=== PATIENT | female | born 1945 | race Caucasian/White ===

== ENCOUNTER 2016-12-03 19:35 | Emergency (ER) | payer MEDICARE, BC ==
[2016-12-03] MEDS ORDERED: Ketorolac 30 MG/ML SDV IVPUSH ONE (20:26)
[2016-12-03] MEDS ORDERED: Sodium Chloride 0.9% 10 ML Syringe FLUSH PRN (20:27)
[2016-12-03] MEDS ORDERED: LORazepam 2 MG/ML MDV IVPUSH ONE (20:27)
[2016-12-03] MEDS ORDERED: Sodium Chloride 0.9% 1,000 ML IV SCH (20:30)
[2016-12-03] MEDS ORDERED: Acetaminophen/HYDROcodone 325-5 MG Tab PO ONE (22:27)
[2016-12-03 22:46] VITALS: BP 131/91
--- NOTE | 2016-12-06 10:08 | ER ---
DATE SEEN: 12/03/2016 TIME SEEN: The patient was seen at 2000 hours. 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 She has pain in her right lower flank and right sacral region. PAST MEDICAL HISTORY: Significant for hypertension, obesity, diabetes insulin dependent, depression, coronary artery disease status post three-vessel CABG and three stents in 2000, urine incontinence, dyslipidemia. ALLERGIES: Oxycodone. MEDICATIONS: 1. Insulin NPH and regular. 2. Aspirin. 3. Plavix. 4. Metolazone. 5. Lasix. 6. Fluoxetine - Prozac. 7. Gabapentin. 8. Nitroglycerin. 9. Metoprolol. 10.Lisinopril. 11.Simvastatin. REVIEW OF SYSTEMS: Negative except for, HEENT: Decreased vision, almost blind. CARDIOVASCULAR: No chest pain, shortness of breath, or cough. GI: No recent constipation, blood in the stool, black or tarry stool, change in bowels, or diarrhea. : Intermittent occasional incontinence, uses Attends. MUSCULOSKELETAL: Decreased range of motion in the lower extremities. No history of hip fractures or knee surgeries, but has to use a walker because of decreased muscle strength in the lower extremities. PSYCH: Negative, although she has been treated for depression. PHYSICAL EXAMINATION: VITAL SIGNS: Blood pressure 152/51, heart rate 52, respirations 18, oxygen saturation 97, temperature is 36.3 degrees centigrade. BMI 36.6 kg/m2. GENERAL: Alert woman, in moderate distress. She has a tendency to squint her eyes and has a full face. TMs negative. Pharynx without abnormality. NECK: Supple. Nontender. No neck myalgias. No thyromegaly or bruits in neck. LUNGS: Clear to auscultation without rales, rhonchi, or wheezes. HEART: S1, S2. No irregular rate and rhythm. ABDOMEN: Soft. No guarding. No abdominal discomfort. She has increased abdominal girth. Palpation of the chest is without tenderness. Palpation of the spinous processes is without tenderness. MUSCULOSKELETAL: The right suprailiac crest region and the right quadratus lumborum muscles are tender as they insert in the superior iliac crest. No sacroiliac joint pain. No hip pain. Hips have decreased external rotation and mildly decreased internal rotation and good flexion at the hip. Extension is poor. No pain at the femurs, knees, or lower extremities. No pedal edema. Absent deep tendon reflexes upper and lower extremities. NEURO: Cranial nerves 2 through 12 intact. Sensation intact. No weakness in upper and lower extremities. DIAGNOSTIC DATA: X-ray C-spine, thoracic, and lumbar spine negative except for extensive spurring and osteophytic spurs and no suggestion of compromise of spinal canal. No fractures. ASSESSMENT: Ligamentous and low back muscle strain from fall. No fracture. The patient will continue to have low back pain. The patient received Toradol 30 mg IV plus Reglan IV and pain has decreased 50%. PLAN: Follow up with doctor in a week. I encouraged her to walk and noted to her that her walking is the ticket to walking away from being admission to the intermediate. I encouraged her to support to walk on a daily basis. /[id number] KANWAL/LUAN HANKINS
== END 2016-12-03 22:30 | disposition home or self-care (01) ==
LOC: FB.ED 19:35
DX: S39.012A Strain of muscle, fascia and tendon of lower back, initial encounter (principal); E11.9 Type 2 diabetes mellitus without complications; F32.9 Major depressive disorder, single episode, unspecified; I25.810 Atherosclerosis of coronary artery bypass graft(s) without angina pectoris; E78.5 Hyperlipidemia, unspecified; Z95.5 Presence of coronary angioplasty implant and graft; Z79.4 Long term (current) use of insulin; Z79.82 Long term (current) use of aspirin; Z88.5 Allergy status to narcotic agent; W01.0XXA Fall on same level from slipping, tripping and stumbling without subsequent striking against object, initial encounter
CPT/HCPCS: 36415; 72128; 72131; 80053; 84484; 96361; 96374; 96375; 99284; A9270; J1885; J2060; J7040; J7050

== ENCOUNTER 2017-07-13 09:56 | Inpatient (IN) | payer MEDICARE, BC ==
[2017-07-13] MEDS: Sodium Chloride 0.9% 10 ML Syringe FLUSH PRN ×2 (10:05→20:55)
--- NOTE | 2017-07-13 10:32 | EDM.PDOC ---
ED HPI GENERAL MEDICAL PROBLEM - General Stated Complaint: FELL AT HOME AFTER FAINTING Time Seen by Provider: 07/13/17 09:59 Source of Information: Reports: Patient, Family History Limitations: Reports: Physical Impairment - History of Present Illness INITIAL COMMENTS - FREE TEXT/NARRATIVE: 72 y.o.w.f with a h/o Metabolic syndrome, came with her family by PC to the ed after she fell forward as the was trying to it in the recliner. Her helped her to get up. Pt's only complain is left ant rip pain. Pt stated she passed out for about 6 seconds. No N/V/D or any other acute medical issue. BP 129/56 pulse 61 (a fib) O2 sat 93% on RA. RR 16 Temp 36.4 Onset: Today Onset Date: 07/13/17 Onset Time: 08:00 Duration: Hour(s):, Intermittent Location: Reports: Chest Quality: Reports: Ache Severity: Mild Improves with: Reports: Rest Worsens with: Reports: Movement Context: Reports: Other (yncopal episode) L rib Pain Score (Numeric/FACES): 8 - Related Data Allergies Allergy/AdvReac Type Severity Reaction Status Date / Time oxycodone Allergy Hallucinati Verified 07/13/17 17:22 ons Home Meds: Home Meds Aspirin 325 mg PO BEDTIME 08/19/15 [History] FLUoxetine HCl [Fluoxetine HCl] 40 mg PO BEDTIME 08/19/15 [History] Furosemide [Furosemide] 40 mg PO BID 08/19/15 [History] Insulin Isophane NPH, Human [NovoLIN N] 50 units SQ BID 08/19/15 [History] Insulin Regular, Human [NovoLIN R] 24 units SQ ACBREAKFAST 08/19/15 [History] Lisinopril 5 mg PO BEDTIME 08/19/15 [History] Metoprolol Succinate 50 mg PO BEDTIME 08/19/15 [History] Simvastatin [Simvastatin] 40 mg PO PCDINNER 08/19/15 [History] Gabapentin [Neurontin] 300 mg PO TID 11/15/15 [History] Insulin Regular, Human [NovoLIN R] 12 units SQ PCDINNER 11/15/15 [History] Nitroglycerin [Nitrostat] 0.4 mg SL DAILY PRN 07/10/16 [History] Clopidogrel [Plavix] 75 mg PO BEDTIME 12/03/16 [History] Metolazone 1 tab PO .WED AND SAT AM 12/03/16 [History] Calcium Citrate/Vitamin D3 [Citracal + D Maximum Caplet] 1 tab PO DAILY [History] Cholecalciferol (Vitamin D3) [Vitamin D3] 2,000 unit PO DAILY 07/13/17 [History] Magnesium 250 mg PO DAILY 07/13/17 [History] Past Medical History HEENT History: Reports: Cataract, Hard of Hearing, Impaired Vision, Other (See Below) Other HEENT History: macular degeneration Cardiovascular History: Reports: High Cholesterol, Hypertension, DE Respiratory History: Reports: Pneumonia, Recurrent Gastrointestinal History: Reports: Cholelithiasis Genitourinary History: Reports: Urinary Incontinence 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: Musculoskeletal History: Reports: Other (See Below) Other Musculoskeletal History: walks with walker gait unsteady Psychiatric History: Reports: Depression Endocrine/Metabolic History: Reports: Diabetes, Type II - Infectious Disease History Infectious Disease History: Reports: Chicken Pox, Measles, Shingles - Past Surgical History Cardiovascular Surgical History: Reports: Coronary Artery Bypass, Coronary Artery Stent GI Surgical History: Reports: Appendectomy, Cholecystectomy Musculoskeletal Surgical History: Reports: ORIF Social & Family History - Family History Endocrine/Metabolic: Reports: Diabetes, type II Oncologic: Reports: Renal - Tobacco Use Smoking Status *Q: Never Smoker Second Hand Smoke Exposure: No - Caffeine Use Caffeine Use: Reports: None - Recreational Drug Use Recreational Drug Use: No ED ROS GENERAL - Review of Systems Review Of Systems: Unable To Obtain - Physical Exam Exam: See Below Exam Limited By: Physical Impairment General Appearance: Alert, No Apparent Distress, Obese (morbid) Eye Exam: Bilateral Eye: Normal Inspection Ears: Normal External Exam Nose: Normal Inspection Throat/Mouth: Normal Lips, Normal Gums, No Airway Compromise, Other (dry oral mucosal membranes) Head Exam: Atraumatic, Normocephalic Neck: Normal Inspection, Supple, Non-Tender, Full Range of Motion Respiratory/Chest: No Respiratory Distress, Lungs Clear, Normal Breath Sounds ( poor insp effort), Chest Non-Tender Cardiovascular: Irregularly Irregular (h/o afib) GI/Abdominal: Normal Bowel Sounds, Soft, Non-Tender, No Organomegaly (Female) Exam: Deferred Rectal (Female) Exam: Deferred Neuro Exam (Abbreviated): Alert, Oriented, CN II-XII Intact, Normal Cognition, Abnormal Gait Back Exam: Normal Inspection, Full Range of Motion Extremities: Normal Inspection, Normal Range of Motion, Non-Tender, Pedal Edema (chronic) Psychiatric: Normal Affect, Depressed Mood Skin Exam: Warm, Dry, Intact, Normal Color, No Rash EKG INTERPRETATION EKG Date: 07/13/17 Time: 10:20 Rhythm: A-Fib Rate (Beats/Min): 66 [place]: Normal P-Wave: Absent QRS: Normal ST-T: Normal QT: Normal Comparison: NA - No Prior EKG Course - Vital Signs Text/Narrative:: 72 y.o.w.f with a h/o Metabolic syndrome, came with her family by PC to the ed after she fell forward as the was trying to it in the recliner. Her helped her to get up. Pt's only complain is left ant rip pain. Pt stated she passed out for about 6 seconds. No N/V/D or any other acute medical issue. BP 129/56 pulse 61 (a fib) O2 sat 93% on RA. RR 16 Temp 36.4 PE: Morbid obese with left ant/lower c/w tenderness Imaging: Possible left 7th rib fx, HS enlarged, no acute CHF labs: BNP 2330, HGB 13.5 WBC 6.8 INR 1.24 UA: pos for UTI Glc 100 BUN 36 Cr 1.0 Lactic acid 2.1 Troponin I 1.020 Impression: Syncopal episode, Metabolic syndrome, UTI, Morbid obesity, left 7th rib fx'd, elevated BNP (not in active CHF), h/o chronic a fib Tx: Cipro Reexam: Unsteady gait. Left ant rip pain 1.06 pm Consultation: Dr. Davis: Accepted admission for observation Plan: Admit to tele obs. NH placement. Last Recorded V/S: Last Vital Signs Temp 36.8 C 07/14/17 00:00 Pulse 95 07/14/17 00:00 Resp 18 07/14/17 00:00 BP 137/59 L 07/14/17 00:00 Pulse Ox 94 L 07/14/17 00:00 - Orders/Labs/Meds Orders: Active Orders 24 hr Category Date Time Status Patient Status [ADT] Routine ADT 07/13/17 13:11 Active Cardiac Monitoring [RC] 08,16,00 Care 07/13/17 13:15 Active Up With Assistance [RC] ASDIRECTED Care 07/13/17 13:11 Active VTE/DVT Education [RC] Per Unit Routine Care 07/13/17 13:11 Active Vital Signs [RC] 00,04,08,12,16,20 Care 07/13/17 13:11 Active Consistent Carbohydrate Diet [DIET] Diet 07/13/17 Breakfast Ordered Ribs 2V w Chest Lt [CR] Stat Exams 07/13/17 10:23 Taken CULTURE URINE [RM] Stat Lab 07/13/17 12:50 Received Docusate Sodium [Colace] Med 07/13/17 13:11 Active 100 mg PO BID PRN Ondansetron [Zofran] Med 07/13/17 13:11 Active 4 mg IV Q4H PRN Sodium Chloride 0.9% [Saline Flush] Med 07/13/17 10:49 Active 10 ml FLUSH ASDIRECTED PRN Peripheral IV Insertion Adult [OM.PC] Routine Oth 07/13/17 10:49 Ordered EKG 12 Lead [EK] Routine Ther 07/13/17 11:28 Ordered Medication Orders Aspirin (Ecotrin) 325 mg PO BEDTIME [facility] Last Admin: 07/13/17 20:46 Dose: 325 mg Calcium Carbonate (Calcium Carbonate/Vitamin D 1250 Mg-200 Unit) 1 tab PO DAILY WON Cholecalciferol (Vitamin D3) 2,000 units PO DAILY WON Ciprofloxacin (Ciprofloxacin Hcl) 500 mg PO BID WON Last Admin: 07/13/17 20:57 Dose: 500 mg Docusate Sodium (Colace) 100 mg PO BID PRN PRN Reason: Constipation Fluoxetine HCl (Prozac) 40 mg PO BEDTIME WON Furosemide (Lasix) 40 mg PO BIDDIURETIC [facility] Last Admin: 07/13/17 18:53 Dose: 40 mg Gabapentin (Neurontin) 300 mg PO TID [facility] Last Admin: 07/13/17 20:46 Dose: 300 mg Insulin Aspart (Novolog) 0 unit SUBCUT TIDMEALS [facility] PRN Reason: Protocol Last Admin: 07/13/17 18:52 Dose: 2 units Insulin Aspart (Novolog) 12 unit SUBCUT PCDINNER [facility] PRN Reason: Protocol Last Admin: 07/13/17 19:02 Dose: Admin: 07/13/17 18:53 Dose: 12 units Insulin Aspart (Novolog) 24 unit SUBCUT ACBREAKFAST [facility] PRN Reason: Protocol Insulin Detemir (Levemir) 50 unit SUBCUT BID [facility] Last Admin: 07/13/17 20:44 Dose: 50 units Ketorolac Tromethamine (Toradol) 15 mg IVPUSH Q8H [facility] Stop: 07/18/17 20:47 Last Admin: 07/13/17 20:55 Dose: 15 mg Lisinopril (Prinivil) 5 mg PO BEDTIME [facility] Last Admin: 07/13/17 20:46 Dose: 5 mg Magnesium Oxide (Magnesium Oxide) 400 mg PO DAILY [facility] Metolazone (Zaroxolyn) 2.5 mg PO WeSa@0900 [facility] Metoprolol Succinate (Toprol Xl) 50 mg PO BEDTIME [facility] Last Admin: 07/13/17 20:46 Dose: 50 mg Nitroglycerin (Nitrostat) 0.4 mg SL ASDIRECTED PRN PRN Reason: CHEST DISCOMFORT Ondansetron HCl (Zofran) 4 mg IV Q4H PRN PRN Reason: Nausea/Vomiting Rivaroxaban (Xarelto) 20 mg PO WITHDINNER [facility] Last Admin: 07/13/17 19:01 Dose: Simvastatin (Zocor) 40 mg PO PCDINNER [facility] Last Admin: 07/13/17 19:05 Dose: 40 mg Sodium Chloride (Saline Flush) 10 ml FLUSH ASDIRECTED PRN PRN Reason: Keep Vein Open Last Admin: 07/13/17 20:55 Dose: 10 ml Admin: 07/13/17 10:05 Dose: 10 ml Labs: Laboratory Tests 07/13/17 07/13/17 07/13/17 Range/Units 10:25 10:25 10:25 WBC 10.1 (4.5-12.0) X10-3/uL RBC 4.16 (3.23-5.20) x10(6)uL Hgb 13.5 (11.5-15.5) g/dL Hct 40.5 (30.0-51.3) % MCV 97.2 H (80-96) fL MCH 32.5 (27.7-33.6) pg MCHC 33.5 (32.2-35.4) g/dL RDW 14.8 (11.5-15.5) % Plt Count 213 (125-369) X10(3)uL MPV 7.6 (7.4-10.4) fL Add Manual Diff Yes Neutrophils % (Manual) 96 H (46-82) % Lymphocytes % (Manual) 4 L (13-37) % PT 12.6 H (8.7-11.1) INR 1.24 H (0.89-1.13) Sodium 144 (135-145) mmol/L Potassium 3.6 (3.5-5.3) mmol/L Chloride 107 (100-110) mmol/L Carbon Dioxide 27 (21-32) mmol/L BUN 26 H (7-18) mg/dL Creatinine 1.0 (0.55-1.02) mg/dL Est Cr Clr Drug Dosing TNP Estimated GFR (MDRD) 54 L (>60) BUN/Creatinine Ratio 26.0 H (9-20) Glucose 100 (80-116) mg/dL Hemoglobin A1c (4.5-6.2) % Lactic Acid (0.4-2.2) mmol/L Calcium 8.9 (8.6-10.2) mg/dL Creatine Kinase (60-160) IU/L Troponin I (<0.017-0.056) ng/mL NT-Pro-B Natriuret Pep (<=125) pg/mL Urine Color (YELLOW) Urine Appearance (CLEAR) Urine pH (5.0-6.5) Ur Specific Jackson (1.010-1.025) Urine Protein (NEGATIVE) mg/dL Urine Glucose (UA) (NEGATIVE) mg/dL Urine Ketones (NEGATIVE) mg/dL Urine Occult Blood (NEGATIVE) Urine Nitrite (NEGATIVE) Urine Bilirubin (NEGATIVE) Urine Urobilinogen (NEGATIVE) mg/dL Ur Leukocyte Esterase (NEGATIVE) Urine RBC (0) Urine WBC (0) Ur Squamous Epith Cells (NS,R,O) Urine Bacteria (NS) 07/13/17 07/13/17 07/13/17 Range/Units 10:25 10:25 10:25 WBC (4.5-12.0) X10-3/uL RBC (3.23-5.20) x10(6)uL Hgb (11.5-15.5) g/dL Hct (30.0-51.3) % MCV (80-96) fL MCH (27.7-33.6) pg MCHC (32.2-35.4) g/dL RDW (11.5-15.5) % Plt Count (125-369) X10(3)uL MPV (7.4-10.4) fL Add Manual Diff Neutrophils % (Manual) (46-82) % Lymphocytes % (Manual) (13-37) % PT (8.7-11.1) INR (0.89-1.13) Sodium (135-145) mmol/L Potassium (3.5-5.3) mmol/L Chloride (100-110) mmol/L Carbon Dioxide (21-32) mmol/L BUN (7-18) mg/dL Creatinine (0.55-1.02) mg/dL Est Cr Clr Drug Dosing Estimated GFR (MDRD) (>60) BUN/Creatinine Ratio (9-20) Glucose (80-116) mg/dL Hemoglobin A1c 8.0 H (4.5-6.2) % Lactic Acid 2.1 (0.4-2.2) mmol/L Calcium (8.6-10.2) mg/dL Creatine Kinase (60-160) IU/L Troponin I 0.025 (<0.017-0.056) ng/mL NT-Pro-B Natriuret Pep 2330 H* (<=125) pg/mL Urine Color (YELLOW) Urine Appearance (CLEAR) Urine pH (5.0-6.5) Ur Specific Jackson (1.010-1.025) Urine Protein (NEGATIVE) mg/dL Urine Glucose (UA) (NEGATIVE) mg/dL Urine Ketones (NEGATIVE) mg/dL Urine Occult Blood (NEGATIVE) Urine Nitrite (NEGATIVE) Urine Bilirubin (NEGATIVE) Urine Urobilinogen (NEGATIVE) mg/dL Ur Leukocyte Esterase (NEGATIVE) Urine RBC (0) Urine WBC (0) Ur Squamous Epith Cells (NS,R,O) Urine Bacteria (NS) 07/13/17 07/13/17 Range/Units 10:35 12:50 WBC (4.5-12.0) X10-3/uL RBC (3.23-5.20) x10(6)uL Hgb (11.5-15.5) g/dL Hct (30.0-51.3) % MCV (80-96) fL MCH (27.7-33.6) pg MCHC (32.2-35.4) g/dL RDW (11.5-15.5) % Plt Count (125-369) X10(3)uL MPV (7.4-10.4) fL Add Manual Diff Neutrophils % (Manual) (46-82) % Lymphocytes % (Manual) (13-37) % PT (8.7-11.1) INR (0.89-1.13) Sodium (135-145) mmol/L Potassium (3.5-5.3) mmol/L Chloride (100-110) mmol/L Carbon Dioxide (21-32) mmol/L BUN (7-18) mg/dL Creatinine (0.55-1.02) mg/dL Est Cr Clr Drug Dosing Estimated GFR (MDRD) (>60) BUN/Creatinine Ratio (9-20) Glucose (80-116) mg/dL Hemoglobin A1c (4.5-6.2) % Lactic Acid (0.4-2.2) mmol/L Calcium (8.6-10.2) mg/dL Creatine Kinase 29 L (60-160) IU/L Troponin I (<0.017-0.056) ng/mL NT-Pro-B Natriuret Pep (<=125) pg/mL Urine Color Yellow (YELLOW) Urine Appearance Cloudy (CLEAR) Urine pH 5.0 (5.0-6.5) Ur Specific [place] 1.015 (1.010-1.025) Urine Protein Negative (NEGATIVE) mg/dL Urine Glucose (UA) Normal (NEGATIVE) mg/dL Urine Ketones Negative (NEGATIVE) mg/dL Urine Occult Blood Moderate H (NEGATIVE) Urine Nitrite Positive H (NEGATIVE) Urine Bilirubin Negative (NEGATIVE) Urine Urobilinogen Normal (NEGATIVE) mg/dL Ur Leukocyte Esterase Large H (NEGATIVE) Urine RBC 10-20 H (0) Urine WBC >100 H (0) Ur Squamous Epith Cells Moderate H (NS,R,O) Urine Bacteria Many H (NS) Meds: Medications Generic Name Dose Route Start Last Admin Trade Name Freq PRN Reason Stop Dose Admin Aspirin 325 mg 07/13/17 21:00 07/13/17 20:46 Ecotrin PO 325 mg BEDTIME WON Administration Calcium Carbonate 1 tab 07/14/17 09:00 Calcium Carbonate/Vitamin D 1250 Mg-200 Unit PO DAILY [facility] Cholecalciferol 2,000 units 07/14/17 09:00 Vitamin D3 PO DAILY [facility] Ciprofloxacin 500 mg 07/13/17 21:00 07/13/17 20:57 Ciprofloxacin Hcl PO 500 mg BID [facility] Administration Docusate Sodium 100 mg 07/13/17 13:11 Colace PO BID PRN Constipation Fluoxetine HCl 40 mg 07/14/17 21:00 Prozac PO BEDTIME [facility] Furosemide 40 mg 07/13/17 18:30 07/13/17 18:53 Lasix PO 40 mg BIDDIURETIC [facility] Administration Gabapentin 300 mg 07/13/17 21:00 07/13/17 20:46 Neurontin PO 300 mg TID [facility] Administration Insulin Aspart 0 unit 07/13/17 18:00 07/13/17 18:52 Novolog SUBCUT 2 units TIDMEALS [facility] Administration Protocol Insulin Aspart 12 unit 07/13/17 18:15 07/13/17 19:02 Novolog SUBCUT Not Given PCDINNER [facility] Protocol Insulin Aspart 24 unit 07/14/17 07:30 Novolog SUBCUT ACBREAKFAST [facility] Protocol Insulin Detemir 50 unit 07/13/17 21:00 07/13/17 20:44 Levemir SUBCUT 50 units BID [facility] Administration Ketorolac Tromethamine 15 mg 07/13/17 21:00 07/13/17 20:55 Toradol IVPUSH 07/18/17 20:47 15 mg Q8H [facility] Administration Lisinopril 5 mg 07/13/17 21:00 07/13/17 20:46 Prinivil PO 5 mg BEDTIME [facility] Administration Magnesium Oxide 400 mg 07/14/17 09:00 Magnesium Oxide PO DAILY [facility] Metolazone 2.5 mg 07/16/17 09:00 Zaroxolyn PO WeSa@0900 [facility] Metoprolol Succinate 50 mg 07/13/17 21:00 07/13/17 20:46 Toprol Xl PO 50 mg BEDTIME [facility] Administration Nitroglycerin 0.4 mg 07/14/17 09:00 Nitrostat SL ASDIRECTED PRN CHEST DISCOMFORT Ondansetron HCl 4 mg 07/13/17 13:11 Zofran IV Q4H PRN Nausea/Vomiting Rivaroxaban 20 mg 07/13/17 18:00 07/13/17 19:01 Xarelto PO Not Given WITHDINNER [facility] Simvastatin 40 mg 07/13/17 19:00 07/13/17 19:05 Zocor PO 40 mg PCDINNER [facility] Administration Sodium Chloride 10 ml 07/13/17 10:49 07/13/17 20:55 Saline Flush FLUSH 10 ml ASDIRECTED PRN Administration Keep Vein Open Discontinued Medications Generic Name Dose Route Start Last Admin Trade Name Freq PRN Reason Stop Dose Admin Ciprofloxacin 500 mg 07/13/17 13:10 07/13/17 13:21 Ciprofloxacin Hcl PO 07/13/17 13:11 500 mg ONETIME ONE Administration Ketorolac Tromethamine 15 mg 07/13/17 10:49 07/13/17 11:05 Toradol IVPUSH 07/13/17 10:50 15 mg ONETIME ONE Administration Departure - Departure Time of Disposition: 08:00 Disposition: Admitted As Inpatient 64 Condition: Fair Clinical Impression: Syncopal episodes Qualifiers: Syncope type: unspecified Qualified Code(s): R55 - Syncope and collapse - Discharge Information - My Orders Last 24 Hours: My Active Orders 07/13/17 10:23 Ribs 2V w Chest Lt [CR] Stat 07/13/17 10:49 Sodium Chloride 0.9% [Saline Flush] 10 ml FLUSH ASDIRECTED PRN Peripheral IV Insertion Adult [OM.PC] Routine 07/13/17 11:28 EKG 12 Lead [EK] Routine 07/13/17 12:50 CULTURE URINE [RM] Stat 07/13/17 13:11 Patient Status [ADT] Routine Up With Assistance [RC] ASDIRECTED VTE/DVT Education [RC] Per Unit Routine Vital Signs [RC] 00,04,08,12,16,20 Docusate Sodium [Colace] 100 mg PO BID PRN Ondansetron [Zofran] 4 mg IV Q4H PRN 07/13/17 13:15 Cardiac Monitoring [RC] 08,16,00 07/13/17 Breakfast Consistent Carbohydrate Diet [DIET] - Assessment/Plan Last 24 Hours: My Active Orders 07/13/17 10:23 Ribs 2V w Chest Lt [CR] Stat 07/13/17 10:49 Sodium Chloride 0.9% [Saline Flush] 10 ml FLUSH ASDIRECTED PRN Peripheral IV Insertion Adult [OM.PC] Routine 07/13/17 11:28 EKG 12 Lead [EK] Routine 07/13/17 12:50 CULTURE URINE [RM] Stat 07/13/17 13:11 Patient Status [ADT] Routine Up With Assistance [RC] ASDIRECTED VTE/DVT Education [RC] Per Unit Routine Vital Signs [RC] 00,04,08,12,16,20 Docusate Sodium [Colace] 100 mg PO BID PRN Ondansetron [Zofran] 4 mg IV Q4H PRN 07/13/17 13:15 Cardiac Monitoring [RC] 08,16,00 07/13/17 Breakfast Consistent Carbohydrate Diet [DIET]
[2017-07-13] MEDS ORDERED: Ketorolac 30 MG/ML SDV IVPUSH ONE (10:49)
[2017-07-13] MEDS ORDERED: Ciprofloxacin 500 MG Tab PO ONE (13:10)
[2017-07-13] MEDS ORDERED: Ondansetron 4 MG/2 ML SDV IV PRN (13:11)
[2017-07-13] MEDS ORDERED: Docusate Sodium 100 MG Cap PO PRN (13:11)
--- NOTE | 2017-07-13 17:31 | PCM.HP ---
H&P History of Present Illness - General Date of Service: 07/13/17 Source of Information: Patient, Family, Old Records History Limitations: Reports: No Limitations - History of Present Illness Initial Comments - Free Text/Narative: 72-year-old female complaining of a fall this morning. She was brought in by family after she collapsed and passed out for about 15 seconds. She had just taken insulin and was walking back to the kitchen when it happened. Her attended to her promptly,her sugar on scene was 300. She complains of pain in the left rib cage moderate sharp worse with movement. The family reports that over the last couple weeks she's had multiple falls and are concerned about her safety. She however she has had no problems with her ADLs. She has brittle type 2 diabetes, obesity, coronary disease, And a history of congestive heart failure that have been previously stable. L rib Pain Score (Numeric/FACES): 8 - Related Data Allergies/Adverse Reactions: Allergies Allergy/AdvReac Type Severity Reaction Status Date / Time oxycodone Allergy Hallucinati Verified 07/13/17 17:22 ons Home Medications: Home Meds Aspirin 325 mg PO BEDTIME 08/19/15 [History] FLUoxetine HCl [Fluoxetine HCl] 40 mg PO BEDTIME 08/19/15 [History] Furosemide [Furosemide] 40 mg PO BID 08/19/15 [History] Insulin Isophane NPH, Human [NovoLIN N] 50 units SQ BID 08/19/15 [History] Insulin Regular, Human [NovoLIN R] 24 units SQ ACBREAKFAST 08/19/15 [History] Lisinopril 5 mg PO BEDTIME 08/19/15 [History] Metoprolol Succinate 50 mg PO BEDTIME 08/19/15 [History] Simvastatin [Simvastatin] 40 mg PO PCDINNER 08/19/15 [History] Gabapentin [Neurontin] 300 mg PO TID 11/15/15 [History] Insulin Regular, Human [NovoLIN R] 12 units SQ PCDINNER 11/15/15 [History] Nitroglycerin [Nitrostat] 0.4 mg SL DAILY 07/10/16 [History] Clopidogrel [Plavix] 75 mg PO BEDTIME 12/03/16 [History] Metolazone 1 tab PO .WED AND SAT AM 12/03/16 [History] Calcium Citrate/Vitamin D3 [Citracal + D Maximum Caplet] 1 tab PO DAILY [History] Cholecalciferol (Vitamin D3) [Vitamin D3] 2,000 unit PO DAILY 07/13/17 [History] Magnesium 250 mg PO DAILY 07/13/17 [History] Past Medical History HEENT History: Reports: Cataract, Hard of Hearing, Impaired Vision, Other (See Below) Other HEENT History: macular degeneration Cardiovascular History: Reports: High Cholesterol, Hypertension, [place] Other Cardiovascular History: IRREGULAR HEARTBEAT IN PAST. 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: Musculoskeletal History: Reports: Other (See Below) Other Musculoskeletal History: walks with walker gait unsteady Neurological History: Reports: Neuropathy, Diabetic, Vertigo Other Neuro History: hx tremors, states is not parkinson's Psychiatric History: Reports: Depression Other Psychiatric History: ON MEDICATION FOR DEPRESSION Endocrine/Metabolic History: Reports: Diabetes, Type II - Infectious Disease History Infectious Disease History: Reports: Chicken Pox, Measles, Shingles - Past Surgical History Cardiovascular Surgical History: Reports: Coronary Artery Bypass, Coronary Artery Stent GI Surgical History: Reports: Appendectomy, Cholecystectomy Musculoskeletal Surgical History: Reports: ORIF Social & Family History - Family History Family Medical History: Noncontributory Endocrine/Metabolic: Reports: Diabetes, type II Oncologic: Reports: Renal - Tobacco Use Smoking Status *Q: Never Smoker Years of Tobacco use: 10 Packs/Tins Daily: 0.5 Used Tobacco, but Quit: Yes Month Tobacco Last Used: SEPT Second Hand Smoke Exposure: No - Caffeine Use Caffeine Use: Reports: None - Recreational Drug Use Recreational Drug Use: No H&P Review of Systems - Review of Systems: Review Of Systems: ROS reveals no pertinent complaints other than HPI. Exam - Exam Exam: See Below - Vital Signs Vital Signs: Last Vital Signs Temp 98.4 F 07/13/17 17:00 Pulse 72 07/13/17 17:00 Resp 16 07/13/17 17:00 BP 110/68 07/13/17 17:00 Pulse Ox 91 L 07/13/17 17:00 Weight: 115.122 kg - Exam General: Alert, Oriented, 4 HEENT: PERRLA, Hearing Intact, Mucosa Moist & [place], Nares Patent, Normal Nasal Septum, Posterior Pharynx Clear, Conjunctiva Clear, EOMI, EACs Clear, TMs Clear Neck: Supple, Trachea Midline, 2 Lungs: Other (Tender ribcage) Cardiovascular: Irregular Rhythm GI/Abdominal Exam: Normal Bowel Sounds, Soft, Non-Tender, No Organomegaly, No Distention, No Abnormal Bruit, No Mass, Pelvis Stable (Female) Exam: Deferred Rectal (Female) Exam: Deferred Back Exam: Normal Inspection, Full Range of Motion, NT Extremities: Pedal Edema Skin: Warm, Dry, Intact Neurological: Cranial Nerves Intact, Reflexes Equal Bilateral Neuro Extensive - Mental Status: Alert, Oriented x3, Normal Mood/Affect, Normal Cognition Neuro Extensive - Motor, Sensory, Reflexes: CN II-XII Intact, Normal Gait, Normal Reflexes Psychiatric: Alert, Normal Affect, Normal Mood - Patient Data Result Diagrams: 07/13/17 10:25 07/13/17 10:25 EKG INTERPRETATION Rhythm: A-Fib *Q Meaningful Use (ADM) - VTE *Q VTE Criteria *Q: - Stroke *Q Stroke Criteria *Q: - AMI *Q AMI Criteria *Q: - Problem List (1) Syncope SNOMED Code(s): 415423813 ICD Code: R55 - SYNCOPE AND COLLAPSE Status: Acute Current Visit: Yes Qualifiers: Syncope type: unspecified Qualified Code(s): R55 - Syncope and collapse (2) Afib SNOMED Code(s): 50839342 ICD Code: I48.91 - UNSPECIFIED ATRIAL FIBRILLATION Status: Acute Current Visit: Yes Qualifiers: Atrial fibrillation type: unspecified Qualified Code(s): I48.91 - Unspecified atrial fibrillation (3) CHF (congestive heart failure) SNOMED Code(s): 88576046 ICD Code: I50.9 - HEART FAILURE, UNSPECIFIED Status: Acute Current Visit : Yes Qualifiers: Congestive heart failure type: unspecified congestive heart failure type (4) DM2 (diabetes mellitus, type 2) SNOMED Code(s): 10500769 ICD Code: E11.9 - TYPE 2 DIABETES MELLITUS WITHOUT COMPLICATIONS Status: Chronic Current Visit: Yes Qualifiers: Diabetes mellitus complication status: with other specified complication Diabetes mellitus division human resources manager insulin use: with division human resources manager use Qualified Code(s) : E11.69 - Type 2 diabetes mellitus with other specified complication; Z79.4 - shelter (current) use of insulin; Z79.4 - shelter (current) use of insulin; Z79.4 - shelter (current) use of insulin; Z79.4 - shelter (current) use of insulin (5) Obesity SNOMED Code(s): 150189198 ICD Code: E66.9 - OBESITY, UNSPECIFIED Status: Chronic Current Visit: Yes Qualifiers: Obesity type: due to excess calories Serious obesity comorbidity presence: with serious comorbidity (6) Frequent falls SNOMED Code(s): 016466992 ICD Code: R29.6 - REPEATED FALLS Status: Acute Current Visit: Yes (7) Incontinence of urine SNOMED Code(s): 423084307 ICD Code: R32 - UNSPECIFIED URINARY INCONTINENCE Status: Chronic Current Visit: Yes Qualifiers: Urinary Incontinence type: mixed stress and urge incontinence Qualified Code(s): N39.46 - Mixed incontinence (8) Asymptomatic bacteriuria SNOMED Code(s): 799070066 ICD Code: R82.71 - BACTERIURIA Status: Acute Current Visit: Yes (9) Rib fracture SNOMED Code(s): 07471334 ICD Code: S22.39XA - FRACTURE OF ONE RIB, UNSP SIDE, INIT FOR CLOS FX Status: Acute Current Visit: Yes Qualifiers: Encounter type: initial encounter Rib fracture type: single rib Fracture type: closed Laterality: left Qualified Code(s): S22.32XA - Fracture of one rib, left side, initial encounter for closed fracture (10) CAD (coronary artery disease) SNOMED Code(s): 33834703 ICD Code: I25.10 - ATHSCL HEART DISEASE OF [place] CORONARY ARTERY W/O ANG PCTRS Status: Chronic Current Visit: Yes Qualifiers: Coronary Disease-Associated Artery/Lesion type: bypass graft [place] vs. transplanted heart: [place] heart Associated angina: without angina Qualified Code(s): I25.810 - Atherosclerosis of coronary artery bypass graft(s) without angina pectoris (11) Essential tremor SNOMED Code(s): 362010493 ICD Code: G25.0 - ESSENTIAL TREMOR Status: Chronic Current Visit: Yes (12) CAD (coronary artery disease) of artery bypass graft SNOMED Code(s): 404636541, 838294835, 615069640 ICD Code: I25.810 - ATHEROSCLEROSIS OF CABG W/O ANGINA PECTORIS Status: Acute Current Visit: Yes Problem List Initiated/Reviewed/Updated: Yes Orders Last 24hrs: Active Orders 24 hr Category Date Time Status RT Incentive Spirometry [RC] Q4HWA Care 07/13/17 17:14 Ordered OT Evaluation and Treatment [CONS] Routine Cons 07/13/17 17:19 Ordered PT Evaluation and Treatment [CONS] Routine Cons 07/13/17 17:19 Ordered Echo Ltd [US] Routine Exams 07/15/17 08:00 Ordered BASIC METABOLIC PANEL,BMP [CHEM] AM Lab 07/14/17 05:11 Ordered CBC WITH AUTO DIFF [HEME] AM Lab 07/14/17 05:11 Ordered PRO B-TYPE NATRIUR PEPT,BNPPRO [CHEM] DAILY Lab 07/14/17 17:15 Ordered PRO B-TYPE NATRIUR PEPT,BNPPRO [CHEM] DAILY Lab 07/15/17 17:15 Ordered PRO B-TYPE NATRIUR PEPT,BNPPRO [CHEM] DAILY Lab 07/16/17 17:15 Ordered TROPONIN I [CHEM] AM Lab 07/14/17 05:11 Ordered TSH ULTRASENSITIVE [CHEM] AM Lab 07/14/17 05:11 Ordered Aspirin Med 07/13/17 21:00 Ordered 325 mg PO BEDTIME Calcium Citrate/Vitamin D3 [Citracal + D Maximum Caplet Med 07/14/17 09:00 Ordered ] 1 tab PO DAILY Cholecalciferol (Vitamin D3) [Vitamin D3] Med 07/14/17 09:00 Ordered 2,000 unit PO DAILY FLUoxetine HCl [Fluoxetine HCl] Med 07/13/17 21:00 Ordered 40 mg PO BEDTIME Furosemide [Lasix] Med 07/13/17 21:00 Ordered 40 mg PO BID Gabapentin [Neurontin] Med 07/13/17 21:00 Ordered 300 mg PO TID Insulin Aspart [NovoLOG] Med 07/13/17 18:00 Ordered See Protocol SUBCUT TIDMEALS Insulin Isophane NPH, Human [NovoLIN N] Med 07/13/17 21:00 Ordered 50 unit SUBCUT BID Insulin Regular, Human [HumuLIN R] Med 07/13/17 19:00 Ordered 12 unit SUBCUT PCDINNER Insulin Regular, Human [HumuLIN R] Med 07/14/17 07:30 Ordered 24 unit SUBCUT ACBREAKFAST Lisinopril [Prinivil] Med 07/13/17 21:00 Ordered 5 mg PO BEDTIME Magnesium [Magnesium] Med 07/14/17 09:00 Ordered 250 mg PO DAILY Metolazone [Zaroxolyn] Med 07/13/17 17:30 Ordered 1 tab PO .WED AND SAT AM Metoprolol Succinate [Toprol XL] Med 07/13/17 21:00 Ordered 50 mg PO BEDTIME Nitroglycerin [Nitrostat] Med 07/14/17 09:00 Ordered 0.4 mg SL DAILY Rivaroxaban [Xarelto] Med 07/13/17 18:00 Ordered 20 mg PO WITHDINNER Simvastatin [Zocor] Med 07/13/17 19:00 Ordered 40 mg PO PCDINNER Resuscitation Status Routine Resus Stat 07/13/17 13:28 Ordered Medication Orders Docusate Sodium (Colace) 100 mg PO BID PRN PRN Reason: Constipation Insulin Aspart (Novolog) 0 unit SUBCUT TIDMEALS WON PRN Reason: Protocol Ondansetron HCl (Zofran) 4 mg IV Q4H PRN PRN Reason: Nausea/Vomiting Rivaroxaban (Xarelto) 20 mg PO WITHDINNER [facility] Sodium Chloride (Saline Flush) 10 ml FLUSH ASDIRECTED PRN PRN Reason: Keep Vein Open Last Admin: 07/13/17 10:05 Dose: 10 ml Assessment/Plan Comment:: Control her pain with ketorolac, start Xarelto for anticoagulation. I CHADVasc2 score is 4, making a high risk for stroke. We'll resume her home medications for now. Will discuss disposition once the physical and occupational therapy is completed. She has no urinary symptoms therefore I have elected not to treat a urine lab. Will await the culture test results. I will order for an echocardiogram to be done on Friday, a TSH in the morning.
[2017-07-13] MEDS: Insulin Aspart 100 Units/ML 3 ML Pen SUBCUT SCH ×3 (18:52→19:02)
[2017-07-13] MEDS: Furosemide 40 MG Tab PO SCH (18:53)
[2017-07-13] MEDS: Rivaroxaban 10 MG Tab PO SCH (19:01)
[2017-07-13] MEDS: Simvastatin 40 MG Tab PO SCH (19:05)
[2017-07-13] MEDS: Insulin Detemir 100 Units/ML 3 ML Pen SUBCUT SCH (20:44)
[2017-07-13] MEDS: Gabapentin 300 MG Cap PO SCH (20:46)
[2017-07-13] MEDS: Metoprolol Succinate 50 MG Tab.ER PO SCH (20:46)
[2017-07-13] MEDS: Aspirin 325 MG Tab.EC PO SCH (20:46)
[2017-07-13] MEDS: Lisinopril 5 MG Tab PO SCH (20:46)
[2017-07-13] MEDS: Ketorolac 30 MG/ML SDV IVPUSH SCH (20:55)
[2017-07-13] MEDS ORDERED: Ciprofloxacin 250 MG Tab PO SCH (21:00)
[2017-07-14] MEDS: Ketorolac 30 MG/ML SDV IVPUSH SCH (04:23)
[2017-07-14] MEDS: Sodium Chloride 0.9% 10 ML Syringe FLUSH PRN ×6 (04:25→23:08)
[2017-07-14] MEDS ORDERED: Ciprofloxacin 500 MG Tab PO SCH (07:29)
[2017-07-14] MEDS ORDERED: Insulin Aspart 100 Units/ML 3 ML Pen SUBCUT SCH (07:30)
[2017-07-14] MEDS ORDERED: Nitroglycerin 0.4 MG Tab.SL SL PRN (09:00)
[2017-07-14] MEDS: Furosemide 40 MG Tab PO SCH (09:15)
[2017-07-14] MEDS: Calcium Carbonate/Vitamin D3 1250 MG-200 Unit Tab PO SCH (09:17)
[2017-07-14] MEDS: Insulin Detemir 100 Units/ML 3 ML Pen SUBCUT SCH ×2 (09:18→21:04)
[2017-07-14] MEDS: Insulin Aspart 100 Units/ML 3 ML Pen SUBCUT SCH ×6 (09:18→18:37)
[2017-07-14] MEDS: Cholecalciferol (Vitamin D3) 1,000 Unit Tab PO SCH (09:20)
[2017-07-14] MEDS: Magnesium Oxide 400 MG Tab PO SCH (09:20)
[2017-07-14] MEDS: Gabapentin 300 MG Cap PO SCH ×3 (09:20→21:06)
--- NOTE | 2017-07-14 09:28 | PCM.PN ---
- General Info Date of Service: 07/14/17 Subjective Update: Patient slept well. Has no new complaints today. The pain in the left rib cage is controlled by Toradol. No recent fever or chills. The family is concerned about her being physically deconditioned. Functional Status: Reports: Pain Controlled - Review of Systems General: Reports: No Symptoms HEENT: Reports: No Symptoms - Patient Data Vitals - Most Recent: Last Vital Signs Temp 98.3 F 07/14/17 04:00 Pulse 95 07/14/17 04:00 Resp 20 07/14/17 04:00 BP 144/64 H 07/14/17 04:00 Pulse Ox 94 L 07/14/17 04:00 Weight - Most Recent: 115.122 kg Lab Results Last 24 Hours: Laboratory Results - last 24 hr 07/13/17 07/14/17 07/14/17 Range/Units 17:39 06:10 06:10 WBC 7.0 (4.5-12.0) X10-3/uL RBC 3.95 (3.23-5.20) x10(6)uL Hgb 12.9 (11.5-15.5) g/dL Hct 38.6 (30.0-51.3) % MCV 97.6 H (80-96) fL MCH 32.7 (27.7-33.6) pg MCHC 33.5 (32.2-35.4) g/dL RDW 14.9 (11.5-15.5) % Plt Count 205 (125-369) X10(3)uL MPV 7.9 (7.4-10.4) fL Neut % (Auto) 61.9 (46-82) % Lymph % (Auto) 24.1 (13-37) % [place] % (Auto) 10.4 (4-12) % Eos % (Auto) 3 (1.0-5.0) % Baso % (Auto) 0 (0-2) % Neut # (Auto) 4.4 (1.6-8.3) # Lymph # (Auto) 1.7 (0.6-5.0) # [place] # (Auto) 0.7 (0.0-1.3) # Eos # (Auto) 0.2 (0.0-0.8) # Baso # (Auto) 0.0 (0.0-0.2) # Sodium (135-145) mmol/L Potassium (3.5-5.3) mmol/L Chloride (100-110) mmol/L Carbon Dioxide (21-32) mmol/L BUN (7-18) mg/dL Creatinine (0.55-1.02) mg/dL Est Cr Clr Drug Dosing mL/min Estimated GFR (MDRD) (>60) BUN/Creatinine Ratio (9-20) Glucose (80-116) mg/dL POC Glucose 190 H (80-116) mg/dL Calcium (8.6-10.2) mg/dL Troponin I 0.022 (<0.017-0.056) ng/mL NT-Pro-B Natriuret Pep (<=125) pg/mL TSH, Ultra Sensitive 0.98 (0.36-3.74) IU/mL 07/14/17 07/14/17 07/14/17 Range/Units 06:10 06:10 06:25 WBC (4.5-12.0) X10-3/uL RBC (3.23-5.20) x10(6)uL Hgb (11.5-15.5) g/dL Hct (30.0-51.3) % MCV (80-96) fL MCH (27.7-33.6) pg MCHC (32.2-35.4) g/dL RDW (11.5-15.5) % Plt Count (125-369) X10(3)uL MPV (7.4-10.4) fL Neut % (Auto) (46-82) % Lymph % (Auto) (13-37) % [place] % (Auto) (4-12) % Eos % (Auto) (1.0-5.0) % Baso % (Auto) (0-2) % Neut # (Auto) (1.6-8.3) # Lymph # (Auto) (0.6-5.0) # [place] # (Auto) (0.0-1.3) # Eos # (Auto) (0.0-0.8) # Baso # (Auto) (0.0-0.2) # Sodium 143 (135-145) mmol/L Potassium 4.0 (3.5-5.3) mmol/L Chloride 105 (100-110) mmol/L Carbon Dioxide 31 (21-32) mmol/L BUN 27 H (7-18) mg/dL Creatinine 1.1 H (0.55-1.02) mg/dL Est Cr Clr Drug Dosing 40.38 mL/min Estimated GFR (MDRD) 49 L (>60) BUN/Creatinine Ratio 24.5 H (9-20) Glucose 202 H D (80-116) mg/dL POC Glucose 189 H (80-116) mg/dL Calcium 8.5 L (8.6-10.2) mg/dL Troponin I (<0.017-0.056) ng/mL NT-Pro-B Natriuret Pep 3118 H* (<=125) pg/mL TSH, Ultra Sensitive (0.36-3.74) IU/mL Med Orders - Current: Current Medications Aspirin (Ecotrin) 325 mg PO BEDTIME [facility] Last Admin: 07/13/17 20:46 Dose: 325 mg Calcium Carbonate (Calcium Carbonate/Vitamin D 1250 Mg-200 Unit) 1 tab PO DAILY [facility] Last Admin: 07/14/17 09:17 Dose: 1 tab Cholecalciferol (Vitamin D3) 2,000 units PO DAILY [facility] Last Admin: 07/14/17 09:20 Dose: 2,000 units Docusate Sodium (Colace) 100 mg PO BID PRN PRN Reason: Constipation Fluoxetine HCl (Prozac) 40 mg PO BEDTIME [facility] Furosemide (Lasix) 40 mg IVPUSH BID [facility] Gabapentin (Neurontin) 300 mg PO TID [facility] Last Admin: 07/14/17 09:20 Dose: 300 mg Insulin Aspart (Novolog) 0 unit SUBCUT TIDMEALS [facility] PRN Reason: Protocol Last Admin: 07/14/17 09:18 Dose: 2 units Insulin Aspart (Novolog) 12 unit SUBCUT PCDINNER [facility] PRN Reason: Protocol Last Admin: 07/13/17 19:02 Dose: Not Given Insulin Aspart (Novolog) 24 unit SUBCUT ACBREAKFAST [facility] PRN Reason: Protocol Insulin Detemir (Levemir) 50 unit SUBCUT BID [facility] Last Admin: 07/14/17 09:18 Dose: 50 units Ketorolac Tromethamine (Toradol) 15 mg IVPUSH Q8H [facility] Stop: 07/18/17 20:47 Last Admin: 07/14/17 04:23 Dose: 15 mg Lisinopril (Prinivil) 5 mg PO BEDTIME [facility] Last Admin: 07/13/17 20:46 Dose: 5 mg Magnesium Oxide (Magnesium Oxide) 400 mg PO DAILY [facility] Last Admin: 07/14/17 09:20 Dose: 400 mg Metolazone (Zaroxolyn) 2.5 mg PO WeSa@0900 [facility] Metoprolol Succinate (Toprol Xl) 50 mg PO BEDTIME [facility] Last Admin: 07/13/17 20:46 Dose: 50 mg Nitroglycerin (Nitrostat) 0.4 mg SL ASDIRECTED PRN PRN Reason: CHEST DISCOMFORT Ondansetron HCl (Zofran) 4 mg IV Q4H PRN PRN Reason: Nausea/Vomiting Rivaroxaban (Xarelto) 20 mg PO WITHDINNER [facility] Last Admin: 07/13/17 19:01 Dose: Not Given Simvastatin (Zocor) 40 mg PO PCDINNER [facility] Last Admin: 07/13/17 19:05 Dose: 40 mg Sodium Chloride (Saline Flush) 10 ml FLUSH ASDIRECTED PRN PRN Reason: Keep Vein Open Last Admin: 07/14/17 04:25 Dose: 10 ml Discontinued Medications Ciprofloxacin (Ciprofloxacin Hcl) 500 mg PO ONETIME ONE Stop: 07/13/17 13:11 Last Admin: 07/13/17 13:21 Dose: 500 mg Ciprofloxacin (Ciprofloxacin Hcl) 500 mg PO BID [facility] Last Admin: 07/13/17 20:57 Dose: 500 mg Ciprofloxacin (Ciprofloxacin Hcl) 500 mg PO BID [facility] Last Admin: 07/14/17 09:17 Dose: 500 mg Furosemide (Lasix) 40 mg PO BIDDIURETIC [facility] Last Admin: 07/14/17 09:15 Dose: 40 mg Ketorolac Tromethamine (Toradol) 15 mg IVPUSH ONETIME ONE Stop: 07/13/17 10:50 Last Admin: 07/13/17 11:05 Dose: 15 mg - Exam Quality Assessment: No: Supplemental Oxygen General: Alert, Oriented HEENT: Pupils Equal, Pupils Reactive, EOMI, Mucous Membr. Moist/[place] Neck: Supple Lungs: Crackles, Other (Tender left ribcage) - Problem List & Annotations (1) Syncope SNOMED Code(s): 802553607 Code(s): R55 - SYNCOPE AND COLLAPSE Status: Acute Current Visit: Yes Qualifiers: Syncope type: unspecified Qualified Code(s): R55 - Syncope and collapse (2) Afib SNOMED Code(s): 11224827 Code(s): I48.91 - UNSPECIFIED ATRIAL FIBRILLATION Status: Acute Current Visit: Yes Qualifiers: Atrial fibrillation type: unspecified Qualified Code(s): I48.91 - Unspecified atrial fibrillation (3) CHF (congestive heart failure) SNOMED Code(s): 77532425 Code(s): I50.9 - HEART FAILURE, UNSPECIFIED Status: Acute Current Visit: Yes Qualifiers: Congestive heart failure type: unspecified congestive heart failure type (4) DM2 (diabetes mellitus, type 2) SNOMED Code(s): 51795659 Code(s): E11.9 - TYPE 2 DIABETES MELLITUS WITHOUT COMPLICATIONS Status: Chronic Current Visit: Yes Qualifiers: Diabetes mellitus complication status: with other specified complication Diabetes mellitus custodial insulin use: with custodial use Qualified Code(s) : E11.69 - Type 2 diabetes mellitus with other specified complication; Z79.4 - FDC (current) use of insulin; Z79.4 - [facility]DC (current) use of insulin; Z79.4 - [facility]DC (current) use of insulin; Z79.4 - [facility]DC (current) use of insulin (5) Obesity SNOMED Code(s): 803202065 Code(s): E66.9 - OBESITY, UNSPECIFIED Status: Chronic Current Visit: Yes Qualifiers: Obesity type: due to excess calories Serious obesity comorbidity presence: with serious comorbidity (6) Frequent falls SNOMED Code(s): 587021465 Code(s): R29.6 - REPEATED FALLS Status: Acute Current Visit: Yes (7) Incontinence of urine SNOMED Code(s): 452957018 Code(s): R32 - UNSPECIFIED URINARY INCONTINENCE Status: Chronic Current Visit: Yes Qualifiers: Urinary Incontinence type: mixed stress and urge incontinence Qualified Code(s): N39.46 - Mixed incontinence (8) Asymptomatic bacteriuria SNOMED Code(s): 957924065 Code(s): R82.71 - BACTERIURIA Status: Acute Current Visit: Yes (9) Rib fracture SNOMED Code(s): 02118733 Code(s): S22.39XA - FRACTURE OF ONE RIB, UNSP SIDE, INIT FOR CLOS FX Status : Acute Current Visit: Yes Qualifiers: Encounter type: initial encounter Rib fracture type: single rib Fracture type: closed Laterality: left Qualified Code(s): S22.32XA - Fracture of one rib, left side, initial encounter for closed fracture (10) CAD (coronary artery disease) SNOMED Code(s): 04332424 Code(s): I25.10 - ATHSCL HEART DISEASE OF [place] CORONARY ARTERY W/O ANG PCTRS Status: Chronic Current Visit: Yes Qualifiers: Coronary Disease-Associated Artery/Lesion type: bypass graft [place] vs. transplanted heart: [place] heart Associated angina: without angina Qualified Code(s): I25.810 - Atherosclerosis of coronary artery bypass graft(s) without angina pectoris (11) Essential tremor SNOMED Code(s): 578442095 Code(s): G25.0 - ESSENTIAL TREMOR Status: Chronic Current Visit: Yes (12) CAD (coronary artery disease) of artery bypass graft SNOMED Code(s): 101946848, 596088880, 636737839 Code(s): I25.810 - ATHEROSCLEROSIS OF CABG W/O ANGINA PECTORIS Status: Acute Current Visit: Yes - Problem List Review Problem List Initiated/Reviewed/Updated: Yes - My Orders Last 24 Hours: My Active Orders 07/13/17 17:14 RT Incentive Spirometry [RC] Q4HWA 07/13/17 17:19 OT Evaluation and Treatment [CONS] Routine PT Evaluation and Treatment [CONS] Routine 07/13/17 17:33 Accu Check [Blood Glucose Check, Bedside] [RC] 07,1130,1730 07/13/17 18:00 Insulin Aspart [NovoLOG] See Protocol SUBCUT TIDMEALS Rivaroxaban [Xarelto] 20 mg PO WITHDINNER 07/13/17 18:15 Insulin Aspart [NovoLOG] 12 unit SUBCUT PCDINNER 07/13/17 19:00 Simvastatin [Zocor] 40 mg PO PCDINNER 07/13/17 21:00 Aspirin [Ecotrin] 325 mg PO BEDTIME Gabapentin [Neurontin] 300 mg PO TID Insulin Detemir [Levemir] 50 unit SUBCUT BID Lisinopril [Prinivil] 5 mg PO BEDTIME Metoprolol Succinate [Toprol XL] 50 mg PO BEDTIME 07/14/17 07:30 Insulin Aspart [NovoLOG] 24 unit SUBCUT ACBREAKFAST 07/14/17 09:00 Calcium Carbonate/Vitamin D3 [Calcium Carbonate/Vitamin D 1250 MG-200 Unit] 1 tab PO DAILY Cholecalciferol (Vitamin D3) [Vitamin D3] 2,000 units PO DAILY Magnesium Oxide 400 mg PO DAILY Nitroglycerin [Nitrostat] 0.4 mg SL ASDIRECTED PRN 07/14/17 09:30 Furosemide [Lasix] 40 mg IVPUSH BID 07/14/17 21:00 FLUoxetine [PROzac] 40 mg PO BEDTIME 07/15/17 08:00 Echo Ltd [US] Routine 07/15/17 17:15 PRO B-TYPE NATRIUR PEPT,BNPPRO [CHEM] DAILY 07/16/17 09:00 Metolazone [Zaroxolyn] 2.5 mg PO WeSa@0900 07/16/17 17:15 PRO B-TYPE NATRIUR PEPT,BNPPRO [CHEM] DAILY - Plan Plan:: I'll wait for physical therapy today. For now a BNP is elevated at more than 3000, I have started IV Lasix in place of oral. I will also start Xarelto for anticoagulation which was placed on hold yesterday because of availability. I discussed at the bedside withthe family, options for her care and dispostion, including SWING bed for physical strengthening or discharge to home with home PT
[2017-07-14] MEDS: Ketorolac 15 MG/ML SDV IVPUSH SCH ×3 (11:36→23:07)
[2017-07-14] MEDS: Furosemide 40 MG/4 ML VIAL IVPUSH SCH ×2 (11:51→20:48)
[2017-07-14] MEDS: Rivaroxaban 10 MG Tab PO SCH (18:33)
[2017-07-14] MEDS: Simvastatin 40 MG Tab PO SCH (18:38)
[2017-07-14] MEDS ORDERED: Nystatin Crm 30 GM Tube TOP SCH (21:00)
[2017-07-14] MEDS ORDERED: Nystatin Crm 15 GM Tube TOP SCH (21:00)
[2017-07-14] MEDS: Magnesium Hydroxide 400 MG/5 ML Susp 30 ML Cup PO PRN (21:05)
[2017-07-14] MEDS: Aspirin 325 MG Tab.EC PO SCH (21:06)
[2017-07-14] MEDS: Lisinopril 5 MG Tab PO SCH (21:07)
[2017-07-14] MEDS: Metoprolol Succinate 50 MG Tab.ER PO SCH (21:11)
[2017-07-14] MEDS: FLUoxetine 20 MG Cap PO SCH (21:12)
[2017-07-15] MEDS: traMADol 50 MG Tab PO PRN (03:54)
[2017-07-15] MEDS: Ketorolac 15 MG/ML SDV IVPUSH SCH ×4 (04:47→21:59)
[2017-07-15] MEDS: Sodium Chloride 0.9% 10 ML Syringe FLUSH PRN ×5 (04:48→22:00)
[2017-07-15] MEDS: Insulin Aspart 100 Units/ML 3 ML Pen SUBCUT SCH ×5 (07:57→18:24)
[2017-07-15] MEDS: Insulin Detemir 100 Units/ML 3 ML Pen SUBCUT SCH ×2 (08:01→20:04)
[2017-07-15] MEDS: Calcium Carbonate/Vitamin D3 1250 MG-200 Unit Tab PO SCH (08:05)
[2017-07-15] MEDS: Cholecalciferol (Vitamin D3) 1,000 Unit Tab PO SCH (08:06)
[2017-07-15] MEDS: Magnesium Oxide 400 MG Tab PO SCH (08:06)
[2017-07-15] MEDS: Gabapentin 300 MG Cap PO SCH ×3 (08:06→20:06)
[2017-07-15] MEDS ORDERED: Furosemide 40 MG/4 ML VIAL IVPUSH SCH (09:00)
--- NOTE | 2017-07-15 09:15 | PCM.PN ---
- General Info Date of Service: 07/15/17 Subjective Update: Patient feels weak,this is chronic.Physical therapy to see her and occupational therapy today to determine disposition. She says she did rest very well overnight and slept well. Functional Status: Reports: Pain Controlled, Tolerating Diet - Review of Systems General: Reports: Weakness, Fatigue HEENT: Reports: No Symptoms Pulmonary: Reports: No Symptoms Cardiovascular: Reports: No Symptoms Gastrointestinal: Reports: No Symptoms - Patient Data Vitals - Most Recent: Last Vital Signs Temp 98.5 F 07/15/17 04:30 Pulse 63 07/15/17 04:30 Resp 20 07/15/17 04:30 BP 132/66 07/15/17 04:30 Pulse Ox 95 07/15/17 04:30 Weight - Most Recent: 114.577 kg Lab Results Last 24 Hours: Laboratory Results - last 24 hr 07/14/17 07/14/17 07/15/17 Range/Units 11:41 17:06 06:52 POC Glucose 222 H 238 H 233 H (80-116) mg/dL Med Orders - Current: Current Medications Aspirin (Ecotrin) 325 mg PO BEDTIME [facility] Last Admin: 07/14/17 21:06 Dose: 325 mg Calcium Carbonate (Calcium Carbonate/Vitamin D 1250 Mg-200 Unit) 1 tab PO DAILY [facility] Last Admin: 07/15/17 08:05 Dose: 1 tab Cholecalciferol (Vitamin D3) 2,000 units PO DAILY [facility] Last Admin: 07/15/17 08:06 Dose: 2,000 units Docusate Sodium (Colace) 100 mg PO BID PRN PRN Reason: Constipation Fluoxetine HCl (Prozac) 40 mg PO BEDTIME [facility] Last Admin: 07/14/17 21:12 Dose: 40 mg Furosemide (Lasix) 40 mg PO BID [facility] Gabapentin (Neurontin) 300 mg PO TID [facility] Last Admin: 07/15/17 08:06 Dose: 300 mg Insulin Aspart (Novolog) 0 unit SUBCUT TIDMEALS [facility] PRN Reason: Protocol Last Admin: 07/15/17 07:58 Dose: 4 units Insulin Aspart (Novolog) 12 unit SUBCUT DAILY@1800 [facility] Last Admin: 07/14/17 18:37 Dose: Not Given Insulin Aspart (Novolog) 24 unit SUBCUT ACBREAKFAST [facility] Last Admin: 07/15/17 07:57 Dose: 24 unit Insulin Detemir (Levemir) 50 unit SUBCUT BID [facility] Last Admin: 07/15/17 08:01 Dose: 50 units Ketorolac Tromethamine (Toradol) 15 mg IVPUSH Q6H [facility] Stop: 07/18/17 21:30 Last Admin: 07/15/17 04:47 Dose: 15 mg Lisinopril (Prinivil) 5 mg PO BEDTIME [facility] Last Admin: 07/14/17 21:07 Dose: 5 mg Magnesium Hydroxide (Milk Of Magnesia) 30 ml PO DAILY PRN PRN Reason: Constipation Last Admin: 07/14/17 21:05 Dose: 30 ml Magnesium Oxide (Magnesium Oxide) 400 mg PO DAILY [facility] Last Admin: 07/15/17 08:06 Dose: 400 mg Metolazone (Zaroxolyn) 2.5 mg PO WeSa@0730 [facility] Metoprolol Succinate (Toprol Xl) 50 mg PO BEDTIME [facility] Last Admin: 07/14/17 21:11 Dose: 50 mg Nitroglycerin (Nitrostat) 0.4 mg SL ASDIRECTED PRN PRN Reason: CHEST DISCOMFORT Nystatin (Nystatin Crm) 0 gm TOP BID [facility] Ondansetron HCl (Zofran) 4 mg IV Q4H PRN PRN Reason: Nausea/Vomiting Rivaroxaban (Xarelto) 20 mg PO WITHDINNER [facility] Last Admin: 07/14/17 18:33 Dose: 20 mg [facility]) [facility] Last Admin: 07/14/17 18:38 Dose: 40 mg Sodium Chloride (Saline Flush) 10 ml FLUSH ASDIRECTED PRN PRN Reason: Keep Vein Open Last Admin: 07/15/17 08:06 Dose: 10 ml Tramadol HCl (Ultram) 50 mg PO Q8H PRN PRN Reason: Breakthrough Pain Last Admin: 07/15/17 03:54 Dose: 50 mg Discontinued Medications Ciprofloxacin (Ciprofloxacin Hcl) 500 mg PO ONETIME ONE Stop: 07/13/17 13:11 Last Admin: 07/13/17 13:21 Dose: 500 mg Ciprofloxacin (Ciprofloxacin Hcl) 500 mg PO BID [facility] Last Admin: 07/13/17 20:57 Dose: 500 mg Ciprofloxacin (Ciprofloxacin Hcl) 500 mg PO BID [facility] Last Admin: 07/14/17 09:17 Dose: 500 mg Furosemide (Lasix) 40 mg PO BIDDIURETIC [facility] Last Admin: 07/14/17 09:15 Dose: 40 mg Furosemide (Lasix) 40 mg IVPUSH BID [facility] Last Admin: 07/14/17 20:48 Dose: 40 mg Furosemide (Lasix) 40 mg IVPUSH BID@0900,1400 [facility] Last Admin: 07/15/17 08:06 Dose: 40 mg Insulin Aspart (Novolog) 0 unit SUBCUT TIDMEALS [facility] PRN Reason: Protocol Last Admin: 07/14/17 17:40 Dose: 4 units Insulin Aspart (Novolog) 12 unit SUBCUT PCDINNER [facility] PRN Reason: Protocol Last Admin: 07/14/17 18:29 Dose: 12 units Insulin Aspart (Novolog) 24 unit SUBCUT ACBREAKFAST [facility] PRN Reason: Protocol Last Admin: 07/14/17 09:18 Dose: 24 units Ketorolac Tromethamine (Toradol) 15 mg IVPUSH ONETIME ONE Stop: 07/13/17 10:50 Last Admin: 07/13/17 11:05 Dose: 15 mg Ketorolac Tromethamine (Toradol) 15 mg IVPUSH Q8H [facility] Stop: 07/18/17 20:47 Last Admin: 07/14/17 04:23 Dose: 15 mg Nystatin (Nystatin Crm) 0 gm TOP BID [facility] Nystatin (Nystatin Crm) 0 gm TOP BID [facility] Last Admin: 07/14/17 21:12 Dose: 1 applic - Exam Quality Assessment: No: Supplemental Oxygen General: Alert, Oriented HEENT: Pupils Equal Neck: Supple Lungs: Clear to Auscultation, Crackles, Other (Tender rib cage) Back Exam: Normal Inspection Psy/Mental Status: Alert, Normal Affect, Normal Mood - Problem List & Annotations (1) Syncope SNOMED Code(s): 940569834 Code(s): R55 - SYNCOPE AND COLLAPSE Status: Acute Current Visit: Yes Qualifiers: Syncope type: unspecified Qualified Code(s): R55 - Syncope and collapse (2) Afib SNOMED Code(s): 03882652 Code(s): I48.91 - UNSPECIFIED ATRIAL FIBRILLATION Status: Acute Current Visit: Yes Qualifiers: Atrial fibrillation type: unspecified Qualified Code(s): I48.91 - Unspecified atrial fibrillation (3) CHF (congestive heart failure) SNOMED Code(s): 65609439 Code(s): I50.9 - HEART FAILURE, UNSPECIFIED Status: Acute Current Visit: Yes Qualifiers: Congestive heart failure type: unspecified (4) DM2 (diabetes mellitus, type 2) SNOMED Code(s): 86418453 Code(s): E11.9 - TYPE 2 DIABETES MELLITUS WITHOUT COMPLICATIONS Status: Chronic Current Visit: Yes Qualifiers: Diabetes mellitus complication status: with other specified complication Diabetes mellitus rat exterminator insulin use: with snf use Qualified Code(s) : E11.69 - Type 2 diabetes mellitus with other specified complication; Z79.4 - custodial (current) use of insulin; Z79.4 - intermediate frame tender (current) use of insulin; Z79.4 - custodial (current) use of insulin; Z79.4 - custodial (current) use of insulin (5) Obesity SNOMED Code(s): 662986402 Code(s): E66.9 - OBESITY, UNSPECIFIED Status: Chronic Current Visit: Yes Qualifiers: Obesity type: due to excess calories Serious obesity comorbidity presence: with serious comorbidity (6) Frequent falls SNOMED Code(s): 033586556 Code(s): R29.6 - REPEATED FALLS Status: Acute Current Visit: Yes (7) Incontinence of urine SNOMED Code(s): 937233100 Code(s): R32 - UNSPECIFIED URINARY INCONTINENCE Status: Chronic Current Visit: Yes Qualifiers: Urinary Incontinence type: mixed stress and urge incontinence Qualified Code(s): N39.46 - Mixed incontinence (8) Asymptomatic bacteriuria SNOMED Code(s): 983820682 Code(s): R82.71 - BACTERIURIA Status: Acute Current Visit: Yes (9) Rib fracture SNOMED Code(s): 06366760 Code(s): S22.39XA - FRACTURE OF ONE RIB, UNSP SIDE, INIT FOR CLOS FX Status : Acute Current Visit: Yes Qualifiers: Encounter type: initial encounter Rib fracture type: single rib Fracture type: closed Laterality: left Qualified Code(s): S22.32XA - Fracture of one rib, left side, initial encounter for closed fracture (10) CAD (coronary artery disease) SNOMED Code(s): 48519868 Code(s): I25.10 - ATHSCL HEART DISEASE OF [place] CORONARY ARTERY W/O ANG PCTRS Status: Chronic Current Visit: Yes Qualifiers: Coronary Disease-Associated Artery/Lesion type: bypass graft [place] vs. transplanted heart: [place] heart Associated angina: without angina Qualified Code(s): I25.810 - Atherosclerosis of coronary artery bypass graft(s) without angina pectoris (11) Essential tremor SNOMED Code(s): 723683456 Code(s): G25.0 - ESSENTIAL TREMOR Status: Chronic Current Visit: Yes (12) CAD (coronary artery disease) of artery bypass graft SNOMED Code(s): 465610827, 024663038, 852696965 Code(s): I25.810 - ATHEROSCLEROSIS OF CABG W/O ANGINA PECTORIS Status: Acute Current Visit: Yes Qualifiers: [place] vs. transplanted heart: [place] heart - Problem List Review Problem List Initiated/Reviewed/Updated: Yes - My Orders Last 24 Hours: My Active Orders 07/14/17 09:00 Calcium Carbonate/Vitamin D3 [Calcium Carbonate/Vitamin D 1250 MG-200 Unit] 1 tab PO DAILY Cholecalciferol (Vitamin D3) [Vitamin D3] 2,000 units PO DAILY Magnesium Oxide 400 mg PO DAILY Nitroglycerin [Nitrostat] 0.4 mg SL ASDIRECTED PRN 07/14/17 09:44 Wood Grinder Discontinue [Cardiac Monitoring Discontinue] [RC] Click to Edit 07/14/17 09:46 traMADol [Ultram] 50 mg PO Q8H PRN 07/14/17 10:00 Ketorolac [Toradol] 15 mg IVPUSH Q6H 07/14/17 18:00 Insulin Aspart [NovoLOG] 0 unit SUBCUT TIDMEALS Insulin Aspart [NovoLOG] 12 unit SUBCUT DAILY@1800 07/14/17 19:40 Magnesium Hydroxide [Milk of Magnesia] 30 ml PO DAILY PRN 07/14/17 21:00 FLUoxetine [PROzac] 40 mg PO BEDTIME 07/15/17 07:25 PRO B-TYPE NATRIUR PEPT,BNPPRO [CHEM] DAILY 07/15/17 07:30 Insulin Aspart [NovoLOG] 24 unit SUBCUT ACBREAKFAST 07/15/17 08:00 Echo Ltd [US] Routine 07/15/17 09:00 Nystatin [Nystatin Crm] 0 gm TOP BID 07/15/17 21:00 Furosemide [Lasix] 40 mg PO BID 07/16/17 07:30 Metolazone [Zaroxolyn] 2.5 mg PO Val@0730 07/16/17 17:15 PRO B-TYPE NATRIUR PEPT,BNPPRO [CHEM] DAILY - Plan Plan:: PT has recommended either SWING bed or senior living. Patient will consider options today. For now I have switched her back to oral Lasix,and willbe getting an ECHO today.I will continue with Xarelto, and the home medications. Toradol is helping the pain significantly. I have had a long discussion with her and the family at the bedside about safety at home given her visual loss and weakness. She denies feeling depressed but is generally unmotivated and physically weak.Keep her one more day.Urine grew E coli,but she is asymptomatic.No need for Rx
[2017-07-15] MEDS: Nystatin Crm 30 GM Tube TOP SCH ×2 (10:52→20:06)
[2017-07-15] MEDS: Furosemide 40 MG Tab PO SCH (14:13)
[2017-07-15] MEDS: Rivaroxaban 10 MG Tab PO SCH (18:25)
[2017-07-15] MEDS: Simvastatin 40 MG Tab PO SCH (18:26)
[2017-07-15] MEDS: Aspirin 325 MG Tab.EC PO SCH (20:04)
[2017-07-15] MEDS: FLUoxetine 20 MG Cap PO SCH (20:07)
[2017-07-15] MEDS: Lisinopril 5 MG Tab PO SCH (20:07)
[2017-07-15] MEDS: Metoprolol Succinate 50 MG Tab.ER PO SCH (20:07)
[2017-07-16] MEDS: Ketorolac 15 MG/ML SDV IVPUSH SCH ×3 (04:00→16:20)
[2017-07-16] MEDS: traMADol 50 MG Tab PO PRN ×2 (06:18→21:15)
[2017-07-16] MEDS ORDERED: Metolazone 2.5 MG Tab PO SCH (07:30)
[2017-07-16] MEDS: Insulin Aspart 100 Units/ML 3 ML Pen SUBCUT SCH ×5 (07:59→18:20)
[2017-07-16] MEDS: Calcium Carbonate/Vitamin D3 1250 MG-200 Unit Tab PO SCH (08:40)
[2017-07-16] MEDS: Magnesium Oxide 400 MG Tab PO SCH (08:41)
[2017-07-16] MEDS: Cholecalciferol (Vitamin D3) 1,000 Unit Tab PO SCH (08:41)
[2017-07-16] MEDS: Nystatin Crm 30 GM Tube TOP SCH ×2 (08:41→21:06)
[2017-07-16] MEDS: Gabapentin 300 MG Cap PO SCH ×3 (08:41→21:06)
[2017-07-16] MEDS: Insulin Detemir 100 Units/ML 3 ML Pen SUBCUT SCH ×2 (08:46→21:16)
[2017-07-16] MEDS: Furosemide 40 MG Tab PO SCH ×2 (09:23→14:28)
[2017-07-16] MEDS: Sodium Chloride 0.9% 10 ML Syringe FLUSH PRN ×2 (10:16→16:21)
--- NOTE | 2017-07-16 11:27 | PCM.PN ---
- General Info Date of Service: 07/16/17 Subjective Update: Brigido had more pain in the left rib cage last night. She did walk more than 360 feet although she still unstable and weak at times. Otherwise no new symptoms today Functional Status: Reports: Pain Controlled - Review of Systems General: Reports: No Symptoms Pulmonary: Reports: Other (Rib cage pain). Denies: Shortness of Breath - Patient Data Vitals - Most Recent: Last Vital Signs Temp 97.9 F 07/16/17 08:00 Pulse 73 07/16/17 08:00 Resp 20 07/16/17 08:00 BP 126/71 07/16/17 08:00 Pulse Ox 95 07/16/17 08:00 Weight - Most Recent: 114.577 kg Lab Results Last 24 Hours: Laboratory Results - last 24 hr 07/15/17 07/15/17 07/16/17 Range/Units 11:28 17:41 05:57 POC Glucose 195 H 256 H (80-116) mg/dL NT-Pro-B Natriuret Pep 2466 H* (<=125) pg/mL 07/16/17 Range/Units 07:11 POC Glucose 219 H (80-116) mg/dL NT-Pro-B Natriuret Pep (<=125) pg/mL Med Orders - Current: Current Medications Aspirin (Ecotrin) 325 mg PO BEDTIME [facility] Last Admin: 07/15/17 20:04 Dose: 325 mg Calcium Carbonate (Calcium Carbonate/Vitamin D 1250 Mg-200 Unit) 1 tab PO DAILY [facility] Last Admin: 07/16/17 08:40 Dose: 1 tab Cholecalciferol (Vitamin D3) 2,000 units PO DAILY [facility] Last Admin: 07/16/17 08:41 Dose: 2,000 units Docusate Sodium (Colace) 100 mg PO BID PRN PRN Reason: Constipation Fluoxetine HCl (Prozac) 40 mg PO BEDTIME [facility] Last Admin: 07/15/17 20:07 Dose: 40 mg Furosemide (Lasix) 40 mg PO BIDDIURETIC [facility] Last Admin: 07/16/17 09:23 Dose: 40 mg Gabapentin (Neurontin) 300 mg PO TID [facility] Last Admin: 07/16/17 08:41 Dose: 300 mg Insulin Aspart (Novolog) 0 unit SUBCUT TIDMEALS [facility] PRN Reason: Protocol Last Admin: 07/16/17 08:02 Dose: 4 units Insulin Aspart (Novolog) 12 unit SUBCUT DAILY@1800 [facility] Last Admin: 07/15/17 18:24 Dose: 12 units Insulin Aspart (Novolog) 24 unit SUBCUT ACBREAKFAST [facility] Last Admin: 07/16/17 07:59 Dose: 24 unit Insulin Detemir (Levemir) 50 unit SUBCUT BID [facility] Last Admin: 07/16/17 08:46 Dose: 50 units Ketorolac Tromethamine (Toradol) 15 mg IVPUSH Q6H [facility] Stop: 07/18/17 21:30 Last Admin: 07/16/17 10:15 Dose: 15 mg Lisinopril (Prinivil) 5 mg PO BEDTIME [facility] Last Admin: 07/15/17 20:07 Dose: 5 mg Magnesium Hydroxide (Milk Of Magnesia) 30 ml PO DAILY PRN PRN Reason: Constipation Last Admin: 07/14/17 21:05 Dose: 30 ml Magnesium Oxide (Magnesium Oxide) 400 mg PO DAILY [facility] Last Admin: 07/16/17 08:41 Dose: 400 mg Metolazone (Zaroxolyn) 2.5 mg PO WeSa@0730 [facility] Last Admin: 07/16/17 08:39 Dose: 2.5 mg Metoprolol Succinate (Toprol Xl) 50 mg PO BEDTIME [facility] Last Admin: 07/15/17 20:07 Dose: 50 mg Nitroglycerin (Nitrostat) 0.4 mg SL ASDIRECTED PRN PRN Reason: CHEST DISCOMFORT Nystatin (Nystatin Crm) 0 gm TOP BID [facility] Last Admin: 07/16/17 08:41 Dose: 1 applic Ondansetron HCl (Zofran) 4 mg IV Q4H PRN PRN Reason: Nausea/Vomiting Rivaroxaban (Xarelto) 20 mg PO WITHDINNER [facility] Last Admin: 07/15/17 18:25 Dose: 20 mg Simvastatin (Zocor) 40 mg PO PCDINNER [facility] Last Admin: 07/15/17 18:26 Dose: 40 mg Sodium Chloride (Saline Flush) 10 ml FLUSH ASDIRECTED PRN PRN Reason: Keep Vein Open Last Admin: 07/16/17 10:16 Dose: 10 ml Tramadol HCl (Ultram) 50 mg PO Q8H PRN PRN Reason: Breakthrough Pain Last Admin: 07/16/17 06:18 Dose: 50 mg Discontinued Medications Ciprofloxacin (Ciprofloxacin Hcl) 500 mg PO ONETIME ONE Stop: 07/13/17 13:11 Last Admin: 07/13/17 13:21 Dose: 500 mg Ciprofloxacin (Ciprofloxacin Hcl) 500 mg PO BID [facility] Last Admin: 07/13/17 20:57 Dose: 500 mg Ciprofloxacin (Ciprofloxacin Hcl) 500 mg PO BID [facility] Last Admin: 07/14/17 09:17 Dose: 500 mg Furosemide (Lasix) 40 mg PO BIDDIURETIC [facility] Last Admin: 07/14/17 09:15 Dose: 40 mg Furosemide (Lasix) 40 mg IVPUSH BID [facility] Last Admin: 07/14/17 20:48 Dose: 40 mg Furosemide (Lasix) 40 mg IVPUSH BID@0900,1400 [facility] Last Admin: 07/15/17 08:06 Dose: 40 mg Insulin Aspart (Novolog) 0 unit SUBCUT TIDMEALS [facility] PRN Reason: Protocol Last Admin: 07/14/17 17:40 Dose: 4 units Insulin Aspart (Novolog) 12 unit SUBCUT PCDINNER [facility] PRN Reason: Protocol Last Admin: 07/14/17 18:29 Dose: 12 units Insulin Aspart (Novolog) 24 unit SUBCUT ACBREAKFAST [facility] PRN Reason: Protocol Last Admin: 07/14/17 09:18 Dose: 24 units Ketorolac Tromethamine (Toradol) 15 mg IVPUSH ONETIME ONE Stop: 07/13/17 10:50 Last Admin: 07/13/17 11:05 Dose: 15 mg Ketorolac Tromethamine (Toradol) 15 mg IVPUSH Q8H [facility] Stop: 07/18/17 20:47 Last Admin: 07/14/17 04:23 Dose: 15 mg Nystatin (Nystatin Crm) 0 gm TOP BID [facility] Nystatin (Nystatin Crm) 0 gm TOP BID [facility] Last Admin: 07/14/17 21:12 Dose: 1 applic - Exam General: Alert HEENT: Pupils Equal Neck: Supple Lungs: Clear to Auscultation Cardiovascular: Regular Rate - Problem List & Annotations (1) Syncope SNOMED Code(s): 132262449 Code(s): R55 - SYNCOPE AND COLLAPSE Status: Acute Current Visit: Yes Qualifiers: Syncope type: unspecified Qualified Code(s): R55 - Syncope and collapse (2) Afib SNOMED Code(s): 39847108 Code(s): I48.91 - UNSPECIFIED ATRIAL FIBRILLATION Status: Acute Current Visit: Yes Qualifiers: Atrial fibrillation type: unspecified Qualified Code(s): I48.91 - Unspecified atrial fibrillation (3) CHF (congestive heart failure) SNOMED Code(s): 34567288 Code(s): I50.9 - HEART FAILURE, UNSPECIFIED Status: Acute Current Visit: Yes Qualifiers: Congestive heart failure type: unspecified (4) DM2 (diabetes mellitus, type 2) SNOMED Code(s): 09118393 Code(s): E11.9 - TYPE 2 DIABETES MELLITUS WITHOUT COMPLICATIONS Status: Chronic Current Visit: Yes Qualifiers: Diabetes mellitus complication status: with other specified complication Diabetes mellitus buttermaker continuous churn insulin use: with buttermaker continuous churn use Qualified Code(s) : E11.69 - Type 2 diabetes mellitus with other specified complication; Z79.4 - FDC (current) use of insulin; Z79.4 - FDC (current) use of insulin; Z79.4 - FDC (current) use of insulin; Z79.4 - FDC (current) use of insulin (5) Obesity SNOMED Code(s): 838965474 Code(s): E66.9 - OBESITY, UNSPECIFIED Status: Chronic Current Visit: Yes Qualifiers: Obesity type: due to excess calories Serious obesity comorbidity presence: with serious comorbidity (6) Frequent falls SNOMED Code(s): 360688894 Code(s): R29.6 - REPEATED FALLS Status: Acute Current Visit: Yes (7) Incontinence of urine SNOMED Code(s): 419177313 Code(s): R32 - UNSPECIFIED URINARY INCONTINENCE Status: Chronic Current Visit: Yes Qualifiers: Urinary Incontinence type: mixed stress and urge incontinence Qualified Code(s): N39.46 - Mixed incontinence (8) Asymptomatic bacteriuria SNOMED Code(s): 706926406 Code(s): R82.71 - BACTERIURIA Status: Acute Current Visit: Yes (9) Rib fracture SNOMED Code(s): 68201350 Code(s): S22.39XA - FRACTURE OF ONE RIB, UNSP SIDE, INIT FOR CLOS FX Status : Acute Current Visit: Yes Qualifiers: Encounter type: initial encounter Rib fracture type: single rib Fracture type: closed Laterality: left Qualified Code(s): S22.32XA - Fracture of one rib, left side, initial encounter for closed fracture (10) CAD (coronary artery disease) SNOMED Code(s): 71278907 Code(s): I25.10 - ATHSCL HEART DISEASE OF [place] CORONARY ARTERY W/O ANG PCTRS Status: Chronic Current Visit: Yes Qualifiers: Coronary Disease-Associated Artery/Lesion type: bypass graft [place] vs. transplanted heart: [place] heart Associated angina: without angina Qualified Code(s): I25.810 - Atherosclerosis of coronary artery bypass graft(s) without angina pectoris (11) Essential tremor SNOMED Code(s): 398878412 Code(s): G25.0 - ESSENTIAL TREMOR Status: Chronic Current Visit: Yes (12) CAD (coronary artery disease) of artery bypass graft SNOMED Code(s): 045560071, 214165245, 942580217 Code(s): I25.810 - ATHEROSCLEROSIS OF CABG W/O ANGINA PECTORIS Status: Acute Current Visit: Yes Qualifiers: [place] vs. transplanted heart: [place] heart - Problem List Review Problem List Initiated/Reviewed/Updated: Yes - My Orders Last 24 Hours: My Active Orders 07/15/17 14:00 Furosemide [Lasix] 40 mg PO BIDDIURETIC 07/16/17 07:30 Metolazone [Zaroxolyn] 2.5 mg PO WeSa@0730 - Plan Plan:: Continue incentive spirometry. Physical therapy. I've asked Brigido to ask for Toradol for pain control. Overall she has improved but will NOT be able to go back home independently. My understanding is that she'll be going to [facility].
[2017-07-16] MEDS: Rivaroxaban 10 MG Tab PO SCH (18:21)
[2017-07-16] MEDS: Magnesium Hydroxide 400 MG/5 ML Susp 30 ML Cup PO PRN (18:30)
[2017-07-16] MEDS: Simvastatin 40 MG Tab PO SCH (18:59)
[2017-07-16] MEDS: Aspirin 325 MG Tab.EC PO SCH (21:05)
[2017-07-16] MEDS: FLUoxetine 20 MG Cap PO SCH (21:08)
[2017-07-16] MEDS: Lisinopril 5 MG Tab PO SCH (21:08)
[2017-07-16] MEDS: Metoprolol Succinate 50 MG Tab.ER PO SCH (21:10)
[2017-07-16] MEDS: Naproxen 500 MG Tab PO SCH (21:14)
[2017-07-17] MEDS: traMADol 50 MG Tab PO PRN (05:20)
[2017-07-17] MEDS: Insulin Aspart 100 Units/ML 3 ML Pen SUBCUT SCH ×5 (08:01→18:34)
[2017-07-17] MEDS: Nystatin Crm 30 GM Tube TOP SCH ×2 (08:13→20:21)
[2017-07-17] MEDS: Gabapentin 300 MG Cap PO SCH ×3 (08:14→20:21)
[2017-07-17] MEDS: Furosemide 40 MG Tab PO SCH ×2 (08:14→14:46)
[2017-07-17] MEDS: Magnesium Oxide 400 MG Tab PO SCH (08:14)
[2017-07-17] MEDS: Calcium Carbonate/Vitamin D3 1250 MG-200 Unit Tab PO SCH (08:14)
[2017-07-17] MEDS: Cholecalciferol (Vitamin D3) 1,000 Unit Tab PO SCH (08:14)
[2017-07-17] MEDS: Insulin Detemir 100 Units/ML 3 ML Pen SUBCUT SCH ×2 (08:54→20:19)
[2017-07-17] MEDS: Naproxen 500 MG Tab PO SCH ×2 (08:57→20:21)
--- NOTE | 2017-07-17 10:25 | PCM.PN ---
- General Info Date of Service: 07/17/17 Subjective Update: Brigido reports that she has some pain on the left rib cage that is constant and grabbing in nature. She said the fracture suspected of that area. She also feels that she's not getting enough air when she breathes. She denies fever chills nausea or vomiting. Functional Status: Reports: Pain Controlled, Tolerating Diet - Review of Systems General: Reports: No Symptoms HEENT: Reports: No Symptoms Pulmonary: Reports: No Symptoms Cardiovascular: Reports: No Symptoms Gastrointestinal: Reports: No Symptoms - Patient Data Vitals - Most Recent: Last Vital Signs Temp 97.5 F 07/17/17 08:00 Pulse 61 07/17/17 08:00 Resp 19 07/17/17 08:00 BP 117/57 L 07/17/17 08:00 Pulse Ox 91 L 07/17/17 08:00 Weight - Most Recent: 114.714 kg Lab Results Last 24 Hours: Laboratory Results - last 24 hr 07/16/17 07/16/17 07/17/17 Range/Units 11:40 16:43 05:35 POC Glucose 208 H 204 H 121 H D (80-116) mg/dL Med Orders - Current: Current Medications Aspirin (Halfprin) 81 mg PO BEDTIME [facility] Calcium Carbonate (Calcium Carbonate/Vitamin D 1250 Mg-200 Unit) 1 tab PO DAILY [facility] Last Admin: 07/17/17 08:14 Dose: 1 tab Cholecalciferol (Vitamin D3) 2,000 units PO DAILY [facility] Last Admin: 07/17/17 08:14 Dose: 2,000 units Docusate Sodium (Colace) 100 mg PO BID PRN PRN Reason: Constipation Fluoxetine HCl (Prozac) 40 mg PO BEDTIME [facility] Last Admin: 07/16/17 21:08 Dose: 40 mg Furosemide (Lasix) 40 mg PO BIDDIURETIC [facility] Last Admin: 07/17/17 08:14 Dose: 40 mg Gabapentin (Neurontin) 300 mg PO TID [facility] Last Admin: 07/17/17 08:14 Dose: 300 mg Insulin Aspart (Novolog) 0 unit SUBCUT TIDMEALS [facility] PRN Reason: Protocol Last Admin: 07/17/17 08:01 Dose: Not Given Insulin Aspart (Novolog) 12 unit SUBCUT DAILY@1800 [facility] Last Admin: 07/16/17 18:20 Dose: 12 units Insulin Aspart (Novolog) 24 unit SUBCUT ACBREAKFAST [facility] Last Admin: 07/17/17 08:09 Dose: 24 unit Insulin Detemir (Levemir) 50 unit SUBCUT BID [facility] Last Admin: 07/17/17 08:54 Dose: 50 units Lisinopril (Prinivil) 5 mg PO BEDTIME [facility] Last Admin: 07/16/17 21:08 Dose: 5 mg Magnesium Hydroxide (Milk Of Magnesia) 30 ml PO DAILY PRN PRN Reason: Constipation Last Admin: 07/16/17 18:30 Dose: 30 ml Magnesium Oxide (Magnesium Oxide) 400 mg PO DAILY [facility] Last Admin: 07/17/17 08:14 Dose: 400 mg Metolazone (Zaroxolyn) 2.5 mg PO WeSa@0730 [facility] Last Admin: 07/16/17 08:39 Dose: 2.5 mg Metoprolol Succinate (Toprol Xl) 50 mg PO BEDTIME [facility] Last Admin: 07/16/17 21:10 Dose: 50 mg Naproxen (Naprosyn) 500 mg PO Q12H [facility] Last Admin: 07/17/17 08:57 Dose: 500 mg Nitroglycerin (Nitrostat) 0.4 mg SL ASDIRECTED PRN PRN Reason: CHEST DISCOMFORT Nystatin (Nystatin Crm) 0 gm TOP BID [facility] Last Admin: 07/17/17 08:13 Dose: 1 applic Ondansetron HCl (Zofran) 4 mg IV Q4H PRN PRN Reason: Nausea/Vomiting Rivaroxaban (Xarelto) 20 mg PO WITHDINNER [facility] Last Admin: 07/16/17 18:21 Dose: 20 mg Simvastatin (Zocor) 40 mg PO PCDINNER [facility] Last Admin: 07/16/17 18:59 Dose: 40 mg Sodium Chloride (Saline Flush) 10 ml FLUSH ASDIRECTED PRN PRN Reason: Keep Vein Open Last Admin: 07/16/17 16:21 Dose: 10 ml Tramadol HCl (Ultram) 50 mg PO Q8H PRN PRN Reason: Breakthrough Pain Last Admin: 07/17/17 05:20 Dose: 50 mg Discontinued Medications Aspirin (Ecotrin) 325 mg PO BEDTIME [facility] Last Admin: 07/16/17 21:05 Dose: 325 mg Ciprofloxacin (Ciprofloxacin Hcl) 500 mg PO ONETIME ONE Stop: 07/13/17 13:11 Last Admin: 07/13/17 13:21 Dose: 500 mg Ciprofloxacin (Ciprofloxacin Hcl) 500 mg PO BID [facility] Last Admin: 07/13/17 20:57 Dose: 500 mg Ciprofloxacin (Ciprofloxacin Hcl) 500 mg PO BID [facility] Last Admin: 07/14/17 09:17 Dose: 500 mg Furosemide (Lasix) 40 mg PO BIDDIURETIC [facility] Last Admin: 07/14/17 09:15 Dose: 40 mg Furosemide (Lasix) 40 mg IVPUSH BID [facility] Last Admin: 07/14/17 20:48 Dose: 40 mg Furosemide (Lasix) 40 mg IVPUSH BID@0900,1400 [facility] Last Admin: 07/15/17 08:06 Dose: 40 mg Insulin Aspart (Novolog) 0 unit SUBCUT TIDMEALS [facility] PRN Reason: Protocol Last Admin: 07/14/17 17:40 Dose: 4 units Insulin Aspart (Novolog) 12 unit SUBCUT PCDINNER [facility] PRN Reason: Protocol Last Admin: 07/14/17 18:29 Dose: 12 units Insulin Aspart (Novolog) 24 unit SUBCUT ACBREAKFAST [facility] PRN Reason: Protocol Last Admin: 07/14/17 09:18 Dose: 24 units Ketorolac Tromethamine (Toradol) 15 mg IVPUSH ONETIME ONE Stop: 07/13/17 10:50 Last Admin: 07/13/17 11:05 Dose: 15 mg Ketorolac Tromethamine (Toradol) 15 mg IVPUSH Q8H [facility] Stop: 07/18/17 20:47 Last Admin: 07/14/17 04:23 Dose: 15 mg Ketorolac Tromethamine (Toradol) 15 mg IVPUSH Q6H [facility] Stop: 07/18/17 21:30 Last Admin: 07/16/17 16:20 Dose: 15 mg Nystatin (Nystatin Crm) 0 gm TOP BID [facility] Nystatin (Nystatin Crm) 0 gm TOP BID [facility] Last Admin: 07/14/17 21:12 Dose: 1 applic - Exam Quality Assessment: No: Supplemental Oxygen General: Alert, Oriented, Cooperative HEENT: Pupils Equal Neck: Supple Lungs: Decreased Breath Sounds, Other (Tender left rib cage). No: Crackles Cardiovascular: Regular Rate - Problem List & Annotations (1) Syncope SNOMED Code(s): 103092979 Code(s): R55 - SYNCOPE AND COLLAPSE Status: Acute Current Visit: Yes Qualifiers: Syncope type: unspecified Qualified Code(s): R55 - Syncope and collapse (2) Afib SNOMED Code(s): 54288255 Code(s): I48.91 - UNSPECIFIED ATRIAL FIBRILLATION Status: Acute Current Visit: Yes Qualifiers: Atrial fibrillation type: unspecified Qualified Code(s): I48.91 - Unspecified atrial fibrillation (3) CHF (congestive heart failure) SNOMED Code(s): 62929582 Code(s): I50.9 - HEART FAILURE, UNSPECIFIED Status: Acute Current Visit: Yes Qualifiers: Congestive heart failure type: unspecified (4) DM2 (diabetes mellitus, type 2) SNOMED Code(s): 24658823 Code(s): E11.9 - TYPE 2 DIABETES MELLITUS WITHOUT COMPLICATIONS Status: Chronic Current Visit: Yes Qualifiers: Diabetes mellitus complication status: with other specified complication Diabetes mellitus chcf insulin use: with superintendent terminal use Qualified Code(s) : E11.69 - Type 2 diabetes mellitus with other specified complication; 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; Z79.4 - [facility] (current) use of insulin; 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; Z79.4 - [facility] (current) use of insulin (5) Obesity SNOMED Code(s): 676007780 Code(s): E66.9 - OBESITY, UNSPECIFIED Status: Chronic Current Visit: Yes Qualifiers: Obesity type: due to excess calories Serious obesity comorbidity presence: with serious comorbidity (6) Frequent falls SNOMED Code(s): 292818229 Code(s): R29.6 - REPEATED FALLS Status: Acute Current Visit: Yes (7) Incontinence of urine SNOMED Code(s): 265576775 Code(s): R32 - UNSPECIFIED URINARY INCONTINENCE Status: Chronic Current Visit: Yes Qualifiers: Urinary Incontinence type: mixed stress and urge incontinence Qualified Code(s): N39.46 - Mixed incontinence (8) Asymptomatic bacteriuria SNOMED Code(s): 416082657 Code(s): R82.71 - BACTERIURIA Status: Acute Current Visit: Yes (9) Rib fracture SNOMED Code(s): 20279340 Code(s): S22.39XA - FRACTURE OF ONE RIB, UNSP SIDE, INIT FOR CLOS FX Status : Acute Current Visit: Yes Qualifiers: Encounter type: initial encounter Rib fracture type: single rib Fracture type: closed Laterality: left Qualified Code(s): S22.32XA - Fracture of one rib, left side, initial encounter for closed fracture (10) CAD (coronary artery disease) SNOMED Code(s): 26985539 Code(s): I25.10 - ATHSCL HEART DISEASE OF [place] CORONARY ARTERY W/O ANG PCTRS Status: Chronic Current Visit: Yes Qualifiers: Coronary Disease-Associated Artery/Lesion type: bypass graft [place] vs. transplanted heart: [place] heart Associated angina: without angina Qualified Code(s): I25.810 - Atherosclerosis of coronary artery bypass graft(s) without angina pectoris (11) Essential tremor SNOMED Code(s): 175608872 Code(s): G25.0 - ESSENTIAL TREMOR Status: Chronic Current Visit: Yes (12) CAD (coronary artery disease) of artery bypass graft SNOMED Code(s): 482251994, 962851905, 661273479 Code(s): I25.810 - ATHEROSCLEROSIS OF CABG W/O ANGINA PECTORIS Status: Acute Current Visit: Yes Qualifiers: [place] vs. transplanted heart: [place] heart - Problem List Review Problem List Initiated/Reviewed/Updated: Yes - My Orders Last 24 Hours: My Active Orders 07/16/17 21:00 Naproxen [Naprosyn] 500 mg PO Q12H 07/17/17 10:22 Ribs 3V wo Chest Lt [CR] Routine 07/17/17 21:00 Aspirin [Halfprin] 81 mg PO BEDTIME - Plan Plan:: I will obtain a formal assessment of the ribs with the three-view left rib cage and PA chest. Meanwhile,continue naproxen and Ultram when necessary for pain, incentive spirometry, and physical therapy. My understanding that within a day or so she'll be able to go to either [facility] half[facility]way. The rest of the current medications are continued today
[2017-07-17] MEDS ORDERED: Bisacodyl 10 MG Supp RECTAL PRN (13:07)
[2017-07-17] MEDS ORDERED: Tuberculin, PPD 5 Units/0.1 ML 1 ML MDV IDERM ONE (17:27)
[2017-07-17] MEDS: Rivaroxaban 10 MG Tab PO SCH (18:35)
[2017-07-17] MEDS: Simvastatin 40 MG Tab PO SCH (18:36)
[2017-07-17] MEDS: FLUoxetine 20 MG Cap PO SCH (20:22)
[2017-07-17] MEDS: Metoprolol Succinate 50 MG Tab.ER PO SCH (20:22)
[2017-07-17] MEDS: Lisinopril 5 MG Tab PO SCH (20:22)
[2017-07-17] MEDS ORDERED: Aspirin 81 MG Tab.EC PO SCH (21:00)
[2017-07-18] MEDS: traMADol 50 MG Tab PO PRN (07:34)
[2017-07-18] MEDS: Insulin Aspart 100 Units/ML 3 ML Pen SUBCUT SCH ×3 (07:39→11:56)
[2017-07-18] MEDS: Furosemide 40 MG Tab PO SCH ×2 (07:58→13:05)
[2017-07-18] MEDS: Calcium Carbonate/Vitamin D3 1250 MG-200 Unit Tab PO SCH (08:01)
[2017-07-18] MEDS: Insulin Detemir 100 Units/ML 3 ML Pen SUBCUT SCH (08:02)
[2017-07-18] MEDS: Nystatin Crm 30 GM Tube TOP SCH (08:03)
[2017-07-18] MEDS: Magnesium Oxide 400 MG Tab PO SCH (08:03)
[2017-07-18] MEDS: Gabapentin 300 MG Cap PO SCH ×2 (08:03→13:05)
[2017-07-18] MEDS: Naproxen 500 MG Tab PO SCH (08:03)
[2017-07-18] MEDS: Cholecalciferol (Vitamin D3) 1,000 Unit Tab PO SCH (08:04)
--- NOTE | 2017-07-18 09:12 | CR ---
INDICATION: Rib fracture. LEFT RIBS WITH CHEST: CHEST: PA view of the chest 07/17/2017 was compared with 07/13/2017 and 2016. There is again noted evidence of median sternotomy with enlarged heart and tortuous aorta. Thickening of the minor fissure is again noted. Pleuroparenchymal changes at the left lung base are likely fibrotic in nature, but could be related to pneumonia and pleuritis. Somewhat diminished bone density is suggested, which may be on the basis of osteoporosis and should be correlated clinically. Exogenous obesity is noted. Dextroconvex scoliosis of the thoracic spine is noted of moderate degree. IMPRESSION: Cannot exclude pneumonia and pleuritis at the left lung base. LEFT RIBS: Three views of the left ribs were obtained and revealed demineralization compatible with osteoporosis. Findings are compared with 07/13/2017, which showed a fracture at the 7th left rib laterally, and probably the 6th rib also laterally. Similar fractures are suggested at this time - very subtle at the 6th and definite at the 7th. An 8th rib fracture, somewhat more laterally, is also suggested. On one image, the 6th rib fracture site is more definite. IMPRESSION: 1. Definite rib fractures at the 6th and 7th left ribs posterolaterally, with question of an 8th rib fracture site somewhat more laterally. 2. Osteoporosis. MTDD
[2017-07-18 09:28] VITALS: BP 105/55
--- NOTE | 2017-07-18 15:12 | DISCH ---
DISCHARGE DATE: 07/18/2017 HOSPITAL COURSE: Brigido Horne is a 72-year-old female admitted for concern. Had taken a fall with syncopal, getting up from her wheelchair and walking backwards. Attended to her promptly, sugar was markedly elevated. Complicated right rib pain. Progressive decline in well being necessitated intervention. Throughout her hospital stay, caregivers, PT, and intervention were timing appropriate. Discharged to snf for consideration for short and long- term care intervention. X-rays revealed sixth and seventh rib fractures, and echocardiogram revealed an ejection fraction of 40%. Previous sternotomy scar was present. Laboratory studies of significance, defined. At the time of discharge, the patient was anxious to proceed with therapy, intervention, and care. SURGICAL PROCEDURES: None. CONSULTATION: None. DISCHARGE MEDICATIONS: Med recon list. Please see evaluation. /[id number] FELIX/LUAN
== END 2017-07-18 13:10 | DRG 312 ==
LOC: FB.ED 09:56 → FB.MS 13:15 → OBSVTOIN 13:28
PROVIDERS: ADMIT Family Medicine; ATTEND Family Medicine
DX: R55 Syncope and collapse (principal); I50.20 Unspecified systolic (congestive) heart failure; S22.42XA Multiple fractures of ribs, left side, initial encounter for closed fracture; E88.81 Metabolic syndrome and other insulin resistance; I11.0 Hypertensive heart disease with heart failure; E11.65 Type 2 diabetes mellitus with hyperglycemia; R26.81 Unsteadiness on feet; I48.2 Chronic atrial fibrillation; E66.09 Other obesity due to excess calories; R29.6 Repeated falls; W19.XXXA Unspecified fall, initial encounter; Y92.009 Unspecified place in unspecified non-institutional (private) residence as the place of occurrence of the external cause; I25.10 Atherosclerotic heart disease of native coronary artery without angina pectoris; Z87.891 Personal history of nicotine dependence; Z79.4 Long term (current) use of insulin; R82.71 Bacteriuria; Z66 Do not resuscitate; Z79.01 Long term (current) use of anticoagulants; Z68.38 Body mass index [BMI] 38.0-38.9, adult; G25.0 Essential tremor; N39.46 Mixed incontinence; Z95.1 Presence of aortocoronary bypass graft; Z95.5 Presence of coronary angioplasty implant and graft; Z87.01 Personal history of pneumonia (recurrent); I25.2 Old myocardial infarction; E78.00 Pure hypercholesterolemia, unspecified; H35.30 Unspecified macular degeneration; H54.7 Unspecified visual loss; H91.90 Unspecified hearing loss, unspecified ear; Z88.5 Allergy status to narcotic agent; Z79.82 Long term (current) use of aspirin
CPT/HCPCS: 36415; 71101; 80048; 81001; 82550; 83036; 83605; 83880; 84484; 85025; 85610; 87086; 87088; 87147; 87186; 93005; 96374; 99285; A9270; J1885; J7050; 82962; 84443; 86580; 93306; 94150; 97110-GO; 97110-GP; 97116-GP; 97162-GP; 97166-GO; 97530-GO-KX; 97530-GP; 97535-GO; J1940

== ENCOUNTER 2017-10-10 08:16 | Emergency (ER) | payer MEDICARE, BC ==
[2017-10-10 08:37] VITALS: BP 123/80
--- NOTE | 2017-10-10 12:00 | CR ---
INDICATION: Tibial pain. RIGHT TIBIA AND FIBULA: Four views of the right tibia and fibula revealed posterior and plantar calcaneal spurs off the calcaneus with hypertrophic degenerative changes at the intercondylar spines at the knee. Overall demineralization is suggested, which may be on the basis of osteoporosis or osteomalacia, and should be correlated clinically. Evidence of previous vein stripping surgery is noted in the calf. Pedal artery calcifications are noted. Degenerative changes and asymmetry are noted at the ankle mortise, compatible with posttraumatic osteoarthritis - correlate clinically. No acute fracture or dislocation was identified. IMPRESSION: 1. 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 2. Demineralization suggesting osteomalacia or osteoporosis - correlate clinically. 3. ASD. 4. Previous vein stripping surgery. MTDD
--- NOTE | 2017-10-10 12:06 | CR ---
INDICATION: Pop and pain. Onset 1600 hours yesterday. Increasing pain, can t walk with the pain. Question stress fracture. PELVIS WITH RIGHT HIP: Frontal view of the pelvis and AP and lateral views of the right hip were obtained 10/10/2017 - no comparisons were available. An appearance of demineralization raises question of osteomalacia or osteoporosis - correlate clinically. Mild degenerative changes are noted at the hip joint with the joint space fairly well preserved. A fracture or dislocation was not identified. Calcifications are noted in the iliac and femoral arteries. IMPRESSION: 1. No acute fracture or dislocation. 2. Demineralization. 3. ASD. If an occult fracture site is suspected clinically, nuclear bone imaging or possibly CT or MRI may be helpful. MTDD
--- NOTE | 2017-10-14 14:06 | ER ---
DATE SEEN: 10/10/2017 TIME: The patient was seen at 0815 hours. HISTORY OF PRESENT ILLNESS: Brigido is a 72-year-old woman, who lives with her daughter. Yesterday at 1600 hours, she experienced a pop in her right hip. She had progressive increase in pain and discomfort, which precluded her walking on her leg as well as she normally does. She fell 5 weeks ago on her forearm and did not fracture it. She has no pain in her forearm, but her hip presently is without pain but had "aches." PAST MEDICAL HISTORY: Significant for CVA, hypertension, diabetes, insulin- dependent diabetes with NovoLog and lisinopril. Myocardial infarction in 2002, coronary artery bypass in 2002, 3 vessels, atrial fibrillation has been treated with warfarin, obesity 240 pounds, cholecystectomy, appendectomy, left humerus fracture with plate placed. Her flu shots are up-to-date. Pneumonia shots up- to-date, and she uses a walker at home. She has mild congestive heart failure and depression. CURRENT MEDICATIONS: 1. Tramadol. 2. Simvastatin. 3. Zantac. 4. Artificial Tears. 5. Oxybutynin (bladder incontinence). 6. Nitroglycerin. 7. Metoprolol succinate 50 mg at bedtime. 8. Metolazone 2.5 mg. 9. Magnesium 250 mg daily. 10.Humalog 12 units supper, 24 units breakfast, 15 units isophane (NPH) b.i.d. 11.Gabapentin 300 mg t.i.d. 12.Lasix 40 mg b.i.d. 13.Fluoxetine 40 mg at bedtime. 14.Clopidogrel 75 mg daily. 15.Calcium citrate. 16.Aspirin. 17.Albuterol p.r.n. 18.Vitamin D. REVIEW OF SYSTEMS: Negative, except as noted above. She is overweight. She has limited ability to get up and move around after her recent fall. The patient was seen at 0815 hours, stayed in the ER, because of prolonged resuscitation, which precluded her dismissal. Also arrangements are being made for her physical therapy, home therapy per the staff at the hospital. PHYSICAL EXAMINATION: VITAL SIGNS: Blood pressure 123/80, heart rate 54, respirations 20, oxygen saturation 95%, mean arterial blood pressure 94, temperature 36.8 degrees. GENERAL: This is an obese woman, who looks slightly pale. HEENT: PERRLA intact. Decreased vision. TMs negative. Pharynx without abnormality. NECK: Supple. No bruits. She has upper dentures. No jugular venous distention. LUNGS: Clear without rales, rhonchi, or wheezes. HEART: S1 and S2. No murmurs. ABDOMEN: Soft, increased abdominal girth. Scars noted. No hernia noted. EXTREMITIES: Lower extremities with trace pedal edema. She has vein stripping incision sites. She has mild discomfort in hip with moving. NEUROLOGIC: Absent deep tendon reflexes in upper and lower extremities. Cranial nerves 2 through 12 intact, alert and oriented x3, and gait not tested. Until after her x-rays were cleared of fracture, then she was gotten up to walk, and she can walk with discomfort, but she is able to walk with a walker. LABORATORY FINDINGS: Hemoglobin is 13.1, white count 8,100, PMNs 71, lymphocytes 20, monos 6, platelets 235,000. Electrolytes normal, 142 sodium, potassium 3.7, chloride 103, CO2 of 32, BUN 33, creatinine 1.0, and GFR 54. BUN and creatinine ratio suggesting DEHYDRATION at 33, glucose 161, mild increased glucose. Hemoglobin A1c 8.3, normal is 4.5 to 6.2 (suggested results of an average glucose between 180 to 210). Albumin low at 2.7 with calculated calcium slightly elevated. Normal calcium is 9.0, calculated calcium is 9.88. DIAGNOSTIC STUDIES: X-ray does not reveal a fracture of her hip. She has moderate osteoporosis and osteomalacia. Significant atherosclerotic disease with lower extremity peripheral artery calcifications, has vein stripping clips in the lower extremity, previous vein stripping. Her hip does not reveal fracture but moderate osteoarthritis and osteomalacia. ASSESSMENT: 1. Hip trauma with sprain and strain of ligaments of hip. No evidence for fracture. If she has persistent unrelenting pain that she is unable to walk, then she will need a CAT scan but, at present, CT is not indicated, as she is up and walking with minimal discomfort. OTHER DIAGNOSES: Hypertension; diabetes, relatively well controlled; myocardial infarction in 2002; coronary artery bypass with 3-vessel bypass in 2002; atrial fibrillation, treated with warfarin; obesity at 240 pounds; previous cholecystectomy, appendectomy, and left humeral fracture with plates in it. PLAN: The patient gradually progressively increase her activity as tolerated. Use a walker. Follow up with doctor in a week. No change in medicines. /[id number] KANWAL/LUAN HANKINS
== END 2017-10-10 11:30 | disposition home or self-care (01) ==
LOC: FB.ED 08:16
DX: S76.011A Strain of muscle, fascia and tendon of right hip, initial encounter (principal); S73.101A Unspecified sprain of right hip, initial encounter; E11.9 Type 2 diabetes mellitus without complications; I25.2 Old myocardial infarction; I11.0 Hypertensive heart disease with heart failure; I48.91 Unspecified atrial fibrillation; I50.9 Heart failure, unspecified; E66.9 Obesity, unspecified; Z79.4 Long term (current) use of insulin; Z79.899 Other long term (current) drug therapy; Z79.01 Long term (current) use of anticoagulants; W19.XXXA Unspecified fall, initial encounter
CPT/HCPCS: 36415; 73502-RT; 73590-RT; 80053; 83036; 85025; 99284

== ENCOUNTER 2017-10-29 15:10 | Emergency (ER) | payer MEDICARE, BC ==
--- NOTE | 2017-10-29 16:13 | EDM.PDOC ---
ED HPI GENERAL MEDICAL PROBLEM - General Chief Complaint: General Stated Complaint: FALL Time Seen by Provider: 10/29/17 16:08 Source of Information: Reports: Patient History Limitations: Reports: No Limitations - History of Present Illness INITIAL COMMENTS - FREE TEXT/NARRATIVE: c/o R knee pain fell at home, uses a walker all the time, says she went to the front door, thought someone had run the rivera, looked outside to see of [employer] had left a backage she fell leaving her walker inside, one leg was inside and one was outside, her RLE was bent under her she could not get up, she pushed her call button and EMS picked her up and brought her here, no LOC her was running errands and came to hospital here not able to walk without walker had a fall 3w ago, labs here were neg did not have a R knee XR then, done today, no fx, good preservation of joint space, does have mild DJD has PT come 2-3x/w for rehab of R knee, not wearing a brace or LV there is some question of a cartilage injury as per PT, however not by my exam today, may need an ortho eval which was explained to pt and her OT is come to house tomorrow and PT in 2d no injury or pain except R knee, and that is chronic, does have a small abrasion on her L forearm right knee Pain Score (Numeric/FACES): 5 - Related Data Allergies Allergy/AdvReac Type Severity Reaction Status Date / Time hydrocodone Allergy Hallucinati Verified 10/29/17 16:00 ons oxycodone Allergy Hallucinati Verified 10/29/17 16:01 ons Home Meds: Home Meds Aspirin 325 mg PO BEDTIME 08/19/15 [History] FLUoxetine HCl [Fluoxetine HCl] 40 mg PO BEDTIME 08/19/15 [History] Furosemide 40 mg PO BID 08/19/15 [History] Insulin Isophane NPH, Human [NovoLIN N] 50 units SQ BID 08/19/15 [History] Insulin Regular, Human [NovoLIN R] 24 units SQ ACBREAKFAST 08/19/15 [History] Lisinopril 5 mg PO BEDTIME 08/19/15 [History] Metoprolol Succinate 50 mg PO BEDTIME 08/19/15 [History] Simvastatin 40 mg PO PCDINNER 08/19/15 [History] Gabapentin [Neurontin] 300 mg PO TID 11/15/15 [History] Insulin Regular, Human [NovoLIN R] 12 units SQ PCDINNER 11/15/15 [History] Nitroglycerin [Nitrostat] 0.4 mg SL DAILY PRN 07/10/16 [History] Metolazone 2.5 mg PO WESA@0730 12/03/16 [History] Calcium Citrate/Vitamin D3 [Citracal + D Maximum Caplet] 1 tab PO DAILY [History] Cholecalciferol (Vitamin D3) [Vitamin D3] 2,000 unit PO DAILY 07/13/17 [History] Magnesium 250 mg PO DAILY 07/13/17 [History] Albuterol Sulfate [Proair Hfa] 2 puff IH Q4H PRN 07/14/17 [History] Polyvinyl Alcohol [Artificial Tears] 1 drop OP Q4H PRN 07/14/17 [History] traMADol [Ultram] 50 mg PO Q8H PRN #30 tablet 07/18/17 [Rx] Oxybutynin Chloride [Ditropan Xl] 10 mg PO DAILY 10/29/17 [History] Ranitidine [Zantac] 75 mg PO BEDTIME PRN 10/29/17 [History] Warfarin [Coumadin] 1.25 mg PO MOFR 10/29/17 [History] Warfarin [Coumadin] 2.5 mg PO SUTUWETHSA 10/29/17 [History] Past Medical History HEENT History: Reports: Cataract, Hard of Hearing, Impaired Vision, Other (See Below) Other HEENT History: macular degeneration Cardiovascular History: Reports: Afib, Bypass, High Cholesterol, Hypertension, [place] Other Cardiovascular History: IRREGULAR HEARTBEAT IN PAST. HX OF DIZZYNESS Respiratory History: Reports: Pneumonia, Recurrent Gastrointestinal History: Reports: Cholelithiasis Genitourinary History: Reports: Urinary Incontinence [employer] History: Reports: Musculoskeletal History: Reports: Other (See Below) Other Musculoskeletal History: walks with walker gait unsteady Neurological History: Reports: Neuropathy, Diabetic, Vertigo Other Neuro History: hx tremors, states is not parkinson's Psychiatric History: Reports: Depression Other Psychiatric History: ON MEDICATION FOR DEPRESSION Endocrine/Metabolic History: Reports: Diabetes, Type II - Infectious Disease History Infectious Disease History: Reports: Chicken Pox, Measles, Shingles - Past Surgical History Cardiovascular Surgical History: Reports: Coronary Artery Bypass, Coronary Artery Stent GI Surgical History: Reports: Appendectomy, Cholecystectomy Musculoskeletal Surgical History: Reports: ORIF Social & Family History - Family History Family Medical History: Noncontributory Endocrine/Metabolic: Reports: Diabetes, type II Oncologic: Reports: Renal - Tobacco Use Smoking Status *Q: Never Smoker - Caffeine Use Caffeine Use: Reports: Soda - Recreational Drug Use Recreational Drug Use: No ED ROS GENERAL - Review of Systems Review Of Systems: See Below Constitutional: Reports: No Symptoms HEENT: Reports: No Symptoms Respiratory: Reports: No Symptoms Cardiovascular: Reports: No Symptoms Endocrine: Reports: No Symptoms GI/Abdominal: Reports: No Symptoms : Reports: No Symptoms Musculoskeletal: Reports: Other Skin: Reports: No Symptoms (R knee) Neurological: Reports: No Symptoms Psychiatric: Reports: No Symptoms Hematologic/Lymphatic: Reports: No Symptoms Immunologic: Reports: No Symptoms ED EXAM, GENERAL - Physical Exam Exam: See Below Exam Limited By: No Limitations General Appearance: Alert, WD/WN, No Apparent Distress Nose: Normal Inspection, Normal Mucosa, No Blood Throat/Mouth: Normal Inspection, Normal Lips Head: Atraumatic, Normocephalic Neck: Normal Inspection, Supple, Non-Tender, Full Range of Motion Respiratory/Chest: No Respiratory Distress, Lungs Clear, Chest Non-Tender Cardiovascular: No Edema, No JVD, No Rub, Other (slight irreg, quiet precordium , no S3/Sr) GI/Abdominal: Soft, Non-Tender Extremities: Other (R knee with 1-2+ tender along length of MCL, not ballottable , no ecchymosis) Neurological: Alert, Oriented, CN II-XII Intact, Normal Cognition, No Motor/ Sensory Deficits Psychiatric: Normal Affect, Normal Mood Skin Exam: Warm, Dry, Intact, Normal Color, No Rash Lymphatic: No Adenopathy Course - Vital Signs Last Recorded V/S: Last Vital Signs Temp 36.6 C 10/29/17 15:10 Pulse 58 L 10/29/17 15:10 Resp 18 10/29/17 15:10 BP 134/50 L 10/29/17 15:10 Pulse Ox 97 10/29/17 15:10 - Orders/Labs/Meds Orders: Active Orders 24 hr Category Date Time Status Knee 3V Rt [CR] Stat Exams 10/29/17 15:33 Ordered Departure - Departure Time of Disposition: 16:15 Disposition: Home, Self-Care 01 Condition: Good Clinical Impression: Right knee sprain - Discharge Information Referrals: Oliva Burns PA [Consulting Physician] - Additional Instructions: Increase acetaminophen 500 mg 2 tabs 3 times a day. Use ice for 10 minutes 4 times a day for 2 days. Use Lv wrap when out of bed. Continue to work with PT. See orthopedics for additional evaluation, as needed. - My Orders Last 24 Hours: My Active Orders 10/29/17 15:33 Knee 3V Rt [CR] Stat - Assessment/Plan Last 24 Hours: My Active Orders 10/29/17 15:33 Knee 3V Rt [CR] Stat
[2017-10-29 16:31] VITALS: BP 123/51
--- NOTE | 2017-10-30 15:26 | CR ---
INDICATION: Fall, pain at MCL. RIGHT KNEE: Three views of the right knee were obtained 10/29/2017 and compared with 10/10/2017 right tibia and fibula. Demineralization is suggested, compatible with osteoporosis. Mild hypertrophic degenerative changes are noted at the intercondylar spines. Femorotibial joint spaces appear to be maintained on these non-upright views. Hypertrophic degenerative changes are also noted of mild to moderate degree at the patellofemoral joint with suggestion of mild narrowing of the patellofemoral joint medially. Slight prominence at the suprapatellar bursa also suggests the possibility of a knee joint effusion. Incidentally noted were calcifications in the distal femoral artery, popliteal artery, and trifurcation arteries. IMPRESSION: 1. No acute fracture or dislocation. 2. Probable osteoporosis. 3. Mild osteoarthritis. 4. ASD. 5. Suggestion of a small knee joint effusion. MTDD
== END 2017-10-29 16:25 | disposition home or self-care (01) ==
LOC: FB.ED 15:10
DX: S83.91XA Sprain of unspecified site of right knee, initial encounter (principal); I25.2 Old myocardial infarction; I10 Essential (primary) hypertension; E11.9 Type 2 diabetes mellitus without complications; Z79.899 Other long term (current) drug therapy; W19.XXXA Unspecified fall, initial encounter; Y92.009 Unspecified place in unspecified non-institutional (private) residence as the place of occurrence of the external cause; Z88.5 Allergy status to narcotic agent
CPT/HCPCS: 73562-RT; 99283

== ENCOUNTER 2017-11-14 14:29 | Inpatient (IN) | payer MEDICARE, BC ==
--- NOTE | 2017-11-14 14:39 | EDM.PDOC ---
ED HPI GENERAL MEDICAL PROBLEM - General Stated Complaint: GENERAL WEAKNESS Time Seen by Provider: 11/14/17 14:29 Source of Information: Reports: Patient, EMS, Family History Limitations: Reports: Physical Impairment - History of Present Illness INITIAL COMMENTS - FREE TEXT/NARRATIVE: 72 y.o.w.f with metabolic syndrome, CAD. CHF, sedentary life style, living with her SO at home waiting for residential placement. Pt was brought to the ED by EMS due to worsening of her weakness to the point her can not take care of her anymore. pt denies any pain/discomfort. She just feels weak. BP 119/39 Pulse 58 RR 16 Pulse ox 95% on RA Temp 36.6 Onset: Gradual Onset Date: 11/10/17 Onset Time: 08:00 Duration: Day(s): Location: Reports: Generalized Quality: Reports: Same as Previous Episode Severity: Moderate Improves with: Reports: Rest Worsens with: Reports: Movement Context: Reports: Other (Morbid obesity with gen weakness, unable to care for herself) Associated Symptoms: Reports: Weakness denies when asked Pain Score (Numeric/FACES): 0 - Related Data Allergies Allergy/AdvReac Type Severity Reaction Status Date / Time hydrocodone Allergy Hallucinati Verified 11/14/17 15:27 ons oxycodone Allergy Hallucinati Verified 11/14/17 15:27 ons Home Meds: Home Meds Aspirin 325 mg PO BEDTIME 08/19/15 [History] FLUoxetine HCl [Fluoxetine HCl] 40 mg PO BEDTIME 08/19/15 [History] Furosemide 40 mg PO BID@08,15 08/19/15 [History] Insulin Isophane NPH, Human [NovoLIN N] 50 units SQ BID 08/19/15 [History] Insulin Regular, Human [NovoLIN R] 14 units SQ TIDMEALS 08/19/15 [History] Lisinopril 5 mg PO WITHDINNER 08/19/15 [History] Metoprolol Succinate 50 mg PO WITHDINNER 08/19/15 [History] Simvastatin 40 mg PO PCDINNER 08/19/15 [History] Gabapentin [Neurontin] 300 mg PO TID@08,12,21 11/15/15 [History] Nitroglycerin [Nitrostat] 0.4 mg SL DAILY PRN 07/10/16 [History] Metolazone 2.5 mg PO WESA@0730 12/03/16 [History] Calcium Citrate/Vitamin D3 [Citracal + D Maximum Caplet] 1 tab PO DAILY [History] Cholecalciferol (Vitamin D3) [Vitamin D3] 2,000 unit PO DAILY 07/13/17 [History] Magnesium 250 mg PO DAILY 07/13/17 [History] Albuterol Sulfate [Proair Hfa] 1 - 2 puff IH Q4H PRN 07/14/17 [History] Polyvinyl Alcohol [Artificial Tears] 1 drop EYEBOTH Q4H PRN 07/14/17 [History] traMADol [Ultram] 50 mg PO Q8H PRN #30 tablet 07/18/17 [Rx] Oxybutynin Chloride [Ditropan Xl] 10 mg PO DAILY 10/29/17 [History] Ranitidine [Zantac] 75 mg PO DAILY PRN 10/29/17 [History] Warfarin [Coumadin] 1.25 mg PO MOFR 10/29/17 [History] Warfarin [Coumadin] 2.5 mg PO SUTUWETHSA 10/29/17 [History] Acetaminophen [Tylenol Extra Strength] 1,000 mg PO TID 11/14/17 [History] Melatonin 3 mg PO WITHDINNER 11/14/17 [History] Past Medical History HEENT History: Reports: Cataract, Hard of Hearing, Impaired Vision, Other (See Below) Other HEENT History: macular degeneration Cardiovascular History: Reports: Afib, Bypass, High Cholesterol, Hypertension, NC Other Cardiovascular History: IRREGULAR HEARTBEAT IN PAST. HX OF DIZZYNESS Respiratory History: Reports: Pneumonia, Recurrent Gastrointestinal History: Reports: Cholelithiasis Genitourinary History: Reports: Urinary Incontinence [employer] History: Reports: Musculoskeletal History: Reports: Other (See Below) Other Musculoskeletal History: walks with walker gait unsteady Neurological History: Reports: Neuropathy, Diabetic, Vertigo Other Neuro History: hx tremors, states is not parkinson's Psychiatric History: Reports: Depression Other Psychiatric History: ON MEDICATION FOR DEPRESSION Endocrine/Metabolic History: Reports: Diabetes, Type II - Infectious Disease History Infectious Disease History: Reports: Chicken Pox, Measles, Shingles - Past Surgical History Cardiovascular Surgical History: Reports: Coronary Artery Bypass, Coronary Artery Stent GI Surgical History: Reports: Appendectomy, Cholecystectomy Musculoskeletal Surgical History: Reports: ORIF Social & Family History - Family History Family Medical History: Noncontributory Endocrine/Metabolic: Reports: Diabetes, type II Oncologic: Reports: Renal - Caffeine Use Caffeine Use: Reports: Soda ED ROS GENERAL - Review of Systems Review Of Systems: See Below Constitutional: Reports: Weakness, Weight Gain HEENT: Reports: No Symptoms Respiratory: Reports: No Symptoms Cardiovascular: Reports: No Symptoms Endocrine: Reports: Other (H/O IDDM) GI/Abdominal: Reports: No Symptoms : Reports: No Symptoms Musculoskeletal: Reports: Other (weakness due to inactivity) Skin: Reports: No Symptoms Neurological: Reports: Weakness Psychiatric: Reports: No Symptoms Hematologic/Lymphatic: Reports: No Symptoms Immunologic: Reports: No Symptoms ED EXAM, GENERAL - Physical Exam Exam: See Below Exam Limited By: Physical Impairment General Appearance: Alert, Obese (morbid) Eye Exam: Bilateral Eye: Normal Inspection Ears: Normal External Exam Ear Exam: Bilateral Ear: Auricle Normal Nose: Normal Inspection, Normal Mucosa Throat/Mouth: Normal Lips, Normal Voice, No Airway Compromise Head: Atraumatic, Normocephalic Neck: Normal Inspection, Supple, Non-Tender, Full Range of Motion Respiratory/Chest: No Respiratory Distress, Lungs Clear (poor insp effort.), Normal Breath Sounds, No Accessory Muscle Use Cardiovascular: Normal Peripheral Pulses, Regular Rate, Rhythm, No Edema, No JVD , No Murmur GI/Abdominal: Normal Bowel Sounds, Soft, Non-Tender, No Organomegaly, Other ( same as previously) (Female) Exam: Deferred Rectal (Female) Exam: Deferred Back Exam: Other (tender skin lower back) Extremities: Normal Inspection, Normal Range of Motion Neurological: Alert, Oriented, CN II-XII Intact, Normal Cognition, Other ( unable to ambulate) Psychiatric: Depressed Mood Skin Exam: Warm, Dry, Other (skin break down lower back) Lymphatic: No Adenopathy EKG INTERPRETATION EKG Date: 11/14/17 Time: 15:45 Rhythm: A-Fib Rate (Beats/Min): 70 [place]: Normal P-Wave: Absent QRS: Normal ST-T: Normal QT: Normal Comparison: No Change Course - Vital Signs Text/Narrative:: 72 y.o.w.f with metabolic syndrome, CAD. CHF, sedentary life style, living with her SO at home waiting for residential placement. Pt was brought to the ED by EMS due to worsening of her weakness to the point her can not take care of her anymore. pt denies any pain/discomfort. She just feels weak. BP 119/39 Pulse 58 RR 16 Pulse ox 95% on RA Temp 36.6 PE: Morbid obese 72 y.o.w.f with multiple med issues came to the ed by EMS because the family can not take care of here anymore. Pt is waiting for residential placement. Labs: BNP 2843 INR 3.17 (on coumadine for A fib.) CBC was nl, MVC was 100, however. Na 138 K 3.8 BUN 36 Cr. 1.3 GFR 40 CK 10, Glc 294, UA neg for UTI Impression: Gen weakness, unable to ambulate, Metabolic syndrome, A fib with NVR , Skin pressured lower back, Morbid obese, CRI. DNR/DNI, residential placement Tx: Home meds 4.03 pm Consultation: Dr. Davis, Hospitalist. text sent 4.03 pm: Accepted pt for admission, will see pt in am. Plan:L Admit to M/S inpatient Last Recorded V/S: Last Vital Signs Temp 36.7 C 11/17/17 00:00 Pulse 56 L 11/17/17 00:00 Resp 17 11/17/17 00:00 BP 114/63 11/17/17 00:00 Pulse Ox 92 L 11/17/17 00:00 - Orders/Labs/Meds Orders: Medication Orders Acetaminophen (Tylenol Extra Strength) 1,000 mg PO TID@0800,1200,2100 WON Last Admin: 11/16/17 20:51 Dose: 1,000 mg Admin: 11/16/17 12:39 Dose: 1,000 mg Admin: 11/16/17 08:08 Dose: 1,000 mg Admin: 11/15/17 20:57 Dose: 1,000 mg Admin: 11/15/17 12:00 Dose: 1,000 mg Admin: 11/15/17 08:27 Dose: 1,000 mg Admin: 11/14/17 21:22 Dose: 1,000 mg Albuterol (Ventolin Hfa) 0 gm INH Q4H PRN PRN Reason: BREATHING, WHEEZING, COUGH Stop: 11/21/17 00:05 Artificial Tears (Liquitears 1.4% Ophth Soln) 0 ml EYEBOTH Q4H PRN PRN Reason: Dry Eyes Aspirin (Ecotrin) 325 mg PO BEDTIME [facility] Last Admin: 11/16/17 20:50 Dose: 325 mg Admin: 11/15/17 20:56 Dose: 325 mg Admin: 11/14/17 20:38 Dose: 325 mg Calcium Carbonate (Calcium Carbonate/Vitamin D 1250 Mg-200 Unit) 1 tab PO DAILY [facility] Last Admin: 11/16/17 08:10 Dose: 1 tab Admin: 11/15/17 08:28 Dose: 1 tab Carvedilol (Coreg) 6.25 mg PO BID [facility] Last Admin: 11/16/17 20:50 Dose: 6.25 mg Admin: 11/16/17 09:26 Dose: 6.25 mg Admin: 11/15/17 20:55 Dose: 6.25 mg Admin: 11/15/17 08:32 Dose: 6.25 mg Cholecalciferol (Vitamin D3) 2,000 units PO DAILY [facility] Last Admin: 11/16/17 08:08 Dose: 2,000 units Admin: 11/15/17 08:30 Dose: 2,000 units Famotidine (Pepcid) 10 mg PO DAILY PRN PRN Reason: HEARTBURN Fluoxetine HCl (Prozac) 40 mg PO BEDTIME [facility] Last Admin: 11/16/17 20:51 Dose: 40 mg Admin: 11/15/17 20:57 Dose: 40 mg Admin: 11/14/17 20:40 Dose: 40 mg Furosemide (Lasix) 40 mg PO BID@0800,1400 [facility] Last Admin: 11/16/17 14:42 Dose: 40 mg Admin: 11/16/17 08:07 Dose: 40 mg Admin: 11/15/17 15:16 Dose: 40 mg Admin: 11/15/17 08:26 Dose: 40 mg Admin: 11/14/17 17:22 Dose: 40 mg Gabapentin (Neurontin) 300 mg PO BEDTIME [facility] Last Admin: 11/16/17 20:50 Dose: 300 mg Admin: 11/15/17 20:56 Dose: 300 mg Insulin Aspart (Novolog) 14 unit SUBCUT TIDMEALS [facility] Last Admin: 11/16/17 18:12 Dose: 14 units Admin: 11/16/17 12:38 Dose: 14 units Admin: 11/16/17 08:07 Dose: 14 units Admin: 11/15/17 18:28 Dose: 14 units Admin: 11/15/17 12:00 Dose: 14 units Admin: 11/15/17 08:27 Dose: 14 units Admin: 11/14/17 18:05 Dose: 14 units Insulin Detemir (Levemir) 50 unit SUBCUT BID [facility] Last Admin: 11/16/17 20:52 Dose: 50 units Admin: 11/16/17 08:09 Dose: 50 units Admin: 11/15/17 21:00 Dose: 50 units Admin: 11/15/17 08:29 Dose: 50 units Admin: 11/14/17 20:47 Dose: 50 units Lisinopril (Prinivil) 5 mg PO BEDTIME [facility] Last Admin: 11/16/17 20:51 Dose: 5 mg Admin: 11/15/17 20:56 Dose: 5 mg Admin: 11/14/17 20:39 Dose: 5 mg Magnesium Hydroxide (Milk Of Magnesia) 30 ml PO DAILY PRN PRN Reason: Constipation Last Admin: 11/16/17 11:43 Dose: 30 ml Magnesium Oxide (Magnesium Oxide) 400 mg PO DAILY [facility] Last Admin: 11/16/17 08:08 Dose: 400 mg Admin: 11/15/17 08:31 Dose: 400 mg [facility]) [facility] Last Admin: 11/16/17 18:09 Dose: 3 mg Admin: 11/15/17 18:28 Dose: 3 mg Admin: 11/14/17 18:05 Dose: 3 mg Metolazone (Zaroxolyn) 2.5 mg PO WESA@0730 [facility] Last Admin: 11/15/17 07:36 Dose: 2.5 mg Nitroglycerin (Nitrostat) 0.4 mg SL DAILY PRN PRN Reason: Chest Pain Oxybutynin Chloride (Oxybutynin Er) 10 mg PO DAILY [facility] Last Admin: 11/16/17 08:09 Dose: 10 mg Admin: 11/15/17 08:30 Dose: 10 mg Simvastatin (Zocor) [facility] Last Admin: 11/16/17 18:12 Dose: 40 mg Admin: 11/15/17 20:55 Dose: 40 mg Admin: 11/14/17 18:05 Dose: 40 mg Tramadol HCl (Ultram) 50 mg PO Q8H PRN PRN Reason: Breakthrough Pain Last Admin: 11/14/17 16:41 Dose: 50 mg Warfarin Sodium (Coumadin Sliding Scale) 0 each PO ASDIRECTED [facility] Warfarin Sodium (Coumadin) 1 mg PO DAILY@1600 [facility] Last Admin: 11/16/17 16:28 Dose: 1 mg Labs: Laboratory Tests 11/14/17 11/14/17 11/14/17 Range/Units 14:42 14:43 14:43 WBC 10.4 (4.5-12.0) X10-3/uL RBC 3.61 (3.23-5.20) x10(6)uL Hgb 12.0 (11.5-15.5) g/dL Hct 36.2 (30.0-51.3) % MCV 100.1 H (80-96) fL MCH 33.3 (27.7-33.6) pg MCHC 33.3 (32.2-35.4) g/dL RDW 15.2 (11.5-15.5) % Plt Count 215 (125-369) X10(3)uL PT 30.4 H (8.7-11.1) INR 3.17 H (0.89-1.13) Sodium (135-145) mmol/L Potassium (3.5-5.3) mmol/L Chloride (100-110) mmol/L Carbon Dioxide (21-32) mmol/L BUN (7-18) mg/dL Creatinine (0.55-1.02) mg/dL Est Cr Clr Drug Dosing Estimated GFR (MDRD) (>60) BUN/Creatinine Ratio (9-20) Glucose (80-116) mg/dL Calcium (8.6-10.2) mg/dL Magnesium (1.8-2.5) mg/dL Creatine Kinase (60-160) IU/L Troponin I < 0.017 L (<0.017-0.056) ng/mL NT-Pro-B Natriuret Pep 2843 H* (<=125) pg/mL Urine Color (YELLOW) Urine Appearance (CLEAR) Urine pH (5.0-6.5) Ur Specific [place] (1.010-1.025) Urine Protein (NEGATIVE) mg/dL Urine Glucose (UA) (NEGATIVE) mg/dL Urine Ketones (NEGATIVE) mg/dL Urine Occult Blood (NEGATIVE) Urine Nitrite (NEGATIVE) Urine Bilirubin (NEGATIVE) Urine Urobilinogen (NEGATIVE) mg/dL Ur Leukocyte Esterase (NEGATIVE) Urine RBC (0) Urine WBC (0) Ur Squamous Epith Cells (NS,R,O) Urine Bacteria (NS) Urine Mucus (NS) 11/14/17 11/14/17 11/14/17 Range/Units 14:43 14:43 14:43 WBC (4.5-12.0) X10-3/uL RBC (3.23-5.20) x10(6)uL Hgb (11.5-15.5) g/dL Hct (30.0-51.3) % MCV (80-96) fL MCH (27.7-33.6) pg MCHC (32.2-35.4) g/dL RDW (11.5-15.5) % Plt Count (125-369) X10(3)uL PT (8.7-11.1) INR (0.89-1.13) Sodium 139 (135-145) mmol/L Potassium 4.8 D (3.5-5.3) mmol/L Chloride 105 (100-110) mmol/L Carbon Dioxide 28 (21-32) mmol/L BUN 36 H (7-18) mg/dL Creatinine 1.3 H (0.55-1.02) mg/dL Est Cr Clr Drug Dosing TNP Estimated GFR (MDRD) 40 L (>60) BUN/Creatinine Ratio 27.7 H (9-20) Glucose 296 H D (80-116) mg/dL Calcium 8.5 L (8.6-10.2) mg/dL Magnesium 2.0 (1.8-2.5) mg/dL Creatine Kinase 22 L (60-160) IU/L Troponin I (<0.017-0.056) ng/mL NT-Pro-B Natriuret Pep (<=125) pg/mL Urine Color (YELLOW) Urine Appearance (CLEAR) Urine pH (5.0-6.5) Ur Specific [place] (1.010-1.025) Urine Protein (NEGATIVE) mg/dL Urine Glucose (UA) (NEGATIVE) mg/dL Urine Ketones (NEGATIVE) mg/dL Urine Occult Blood (NEGATIVE) Urine Nitrite (NEGATIVE) Urine Bilirubin (NEGATIVE) Urine Urobilinogen (NEGATIVE) mg/dL Ur Leukocyte Esterase (NEGATIVE) Urine RBC (0) Urine WBC (0) Ur Squamous Epith Cells (NS,R,O) Urine Bacteria (NS) Urine Mucus (NS) 11/14/17 Range/Units 15:39 WBC (4.5-12.0) X10-3/uL RBC (3.23-5.20) x10(6)uL Hgb (11.5-15.5) g/dL Hct (30.0-51.3) % MCV (80-96) fL MCH (27.7-33.6) pg MCHC (32.2-35.4) g/dL RDW (11.5-15.5) % Plt Count (125-369) X10(3)uL PT (8.7-11.1) INR (0.89-1.13) Sodium (135-145) mmol/L Potassium (3.5-5.3) mmol/L Chloride (100-110) mmol/L Carbon Dioxide (21-32) mmol/L BUN (7-18) mg/dL Creatinine (0.55-1.02) mg/dL Est Cr Clr Drug Dosing Estimated GFR (MDRD) (>60) BUN/Creatinine Ratio (9-20) Glucose (80-116) mg/dL Calcium (8.6-10.2) mg/dL Magnesium (1.8-2.5) mg/dL Creatine Kinase (60-160) IU/L Troponin I (<0.017-0.056) ng/mL NT-Pro-B Natriuret Pep (<=125) pg/mL Urine Color [place] (YELLOW) Urine Appearance Slightly cloudy (CLEAR) Urine pH 5.0 (5.0-6.5) Ur Specific [place] 1.020 (1.010-1.025) Urine Protein Negative (NEGATIVE) mg/dL Urine Glucose (UA) 250 H (NEGATIVE) mg/dL Urine Ketones Negative (NEGATIVE) mg/dL Urine Occult Blood Negative (NEGATIVE) Urine Nitrite Negative (NEGATIVE) Urine Bilirubin Small H (NEGATIVE) Urine Urobilinogen 1 H (NEGATIVE) mg/dL Ur Leukocyte Esterase Negative (NEGATIVE) Urine RBC 0-5 (0) Urine WBC 0-5 (0) Ur Squamous Epith Cells Moderate H (NS,R,O) Urine Bacteria Moderate H (NS) Urine Mucus Few H (NS) Meds: Medications Generic Name Dose Route Start Last Admin Trade Name Freq PRN Reason Stop Dose Admin Acetaminophen 1,000 mg 11/14/17 21:00 11/16/17 20:51 Tylenol Extra Strength PO 1,000 mg TID@0800,1200,2100 [facility] Administration Albuterol 0 gm 11/15/17 16:21 Ventolin Hfa INH 11/21/17 00:05 Q4H PRN BREATHING, WHEEZING, COUGH Artificial Tears 0 ml 11/14/17 16:30 Liquitears 1.4% Ophth Soln EYEBOTH Q4H PRN Dry Eyes Aspirin 325 mg 11/14/17 21:00 11/16/17 20:50 Ecotrin PO 325 mg BEDTIME [facility]ON Administration Calcium Carbonate 1 tab 11/15/17 09:00 11/16/17 08:10 Calcium Carbonate/Vitamin D 1250 Mg-200 Unit PO 1 tab DAILY [facility] Administration Carvedilol 6.25 mg 11/15/17 09:00 11/16/17 20:50 Coreg PO 6.25 mg BID [facility]ON Administration Cholecalciferol 2,000 units 11/15/17 09:00 11/16/17 08:08 Vitamin D3 PO 2,000 units DAILY [facility] Administration Famotidine 10 mg 11/14/17 18:00 Pepcid PO DAILY PRN HEARTBURN Fluoxetine HCl 40 mg 11/14/17 21:00 11/16/17 20:51 Prozac PO 40 mg BEDTIME [facility]ON Administration Furosemide 40 mg 11/14/17 17:00 11/16/17 14:42 Lasix PO 40 mg BID@0800,1400 [facility] Administration Gabapentin 300 mg 11/15/17 21:00 11/16/17 20:50 Neurontin PO 300 mg BEDTIME [facility]ON Administration Insulin Aspart 14 unit 11/14/17 18:00 11/16/17 18:12 Novolog SUBCUT 14 units TIDMEALS [facility]ON Administration Insulin Detemir 50 unit 11/14/17 21:00 11/16/17 20:52 Levemir SUBCUT 50 units BID [facility] Administration Lisinopril 5 mg 11/14/17 21:00 11/16/17 20:51 Prinivil PO 5 mg BEDTIME [facility]ON Administration Magnesium Hydroxide 30 ml 11/16/17 10:47 11/16/17 11:43 Milk Of Magnesia PO 30 ml DAILY PRN Administration Constipation Magnesium Oxide 400 mg 11/15/17 09:00 11/16/17 08:08 Magnesium Oxide PO 400 mg DAILY [facility] Administration Melatonin 3 mg 11/14/17 18:00 11/16/17 18:09 Melatonin PO 3 mg WITHDINNER [facility] Administration Metolazone 2.5 mg 11/15/17 07:30 11/15/17 07:36 Zaroxolyn PO 2.5 mg WESA@0730 [facility] Administration Nitroglycerin 0.4 mg 11/14/17 16:30 Nitrostat SL DAILY PRN Chest Pain Oxybutynin Chloride 10 mg 11/15/17 09:00 11/16/17 08:09 Oxybutynin Er PO 10 mg DAILY [facility] Administration Simvastatin 40 mg 11/14/17 19:00 11/16/17 18:12 Zocor PO 40 mg PCDINNER [facility] Administration Tramadol HCl 50 mg 11/14/17 16:30 11/14/17 16:41 Ultram PO 50 mg Q8H PRN Administration Breakthrough Pain Warfarin Sodium 0 each 11/16/17 10:15 Coumadin Sliding Scale PO ASDIRECTED [facility] Warfarin Sodium 1 mg 11/16/17 16:00 11/16/17 16:28 Coumadin PO 1 mg DAILY@1600 [facility] Administration Discontinued Medications Generic Name Dose Route Start Last Admin Trade Name Freq PRN Reason Stop Dose Admin Albuterol 0 gm 11/14/17 16:30 Ventolin Hfa INH Q4H PRN BREATHING, WHEEZING, COUGH Gabapentin 300 mg 11/14/17 21:00 11/15/17 08:25 Neurontin PO Not Given TID@0800,1200,2100 [facility] Metoprolol Succinate 50 mg 11/14/17 21:00 11/14/17 20:50 Toprol Xl PO Not Given BEDTIME [facility] Non-Formulary Medication 75 mg 11/14/17 16:30 Ranitidine [Zantac] PO BEDTIME PRN Dyspepsia Simvastatin Confirm 11/15/17 20:54 11/15/17 22:06 Zocor Administered 11/15/17 20:55 Not Given Dose 40 mg .ROUTE .STK-MED ONE Warfarin Sodium 2.5 mg 11/15/17 16:30 Coumadin PO SUTUWETHSA [facility] Warfarin Sodium 1.25 mg 11/14/17 16:30 Coumadin PO MOFR [facility] Warfarin Sodium 1 mg 11/14/17 17:00 11/15/17 15:16 Coumadin PO 11/15/17 16:01 1 mg DAILY@1600 [facility] Administration Departure - Departure Time of Disposition: 23:00 Disposition: Admitted As Inpatient 64 Condition: Fair Clinical Impression: Weakness - Discharge Information
[2017-11-14] MEDS ORDERED: Polyvinyl Alcohol 1.4% Ophth Soln 15 ML Bottle EYEBOTH PRN (16:30)
[2017-11-14] MEDS ORDERED: traMADol 50 MG Tab PO PRN (16:30)
[2017-11-14] MEDS ORDERED: Nitroglycerin 0.4 MG Tab.SL SL PRN (16:30)
[2017-11-14] MEDS ORDERED: Albuterol 8 GM Inhaler INH PRN (16:30)
[2017-11-14] MEDS ORDERED: RANITIDINE 75 MG PO PRN (16:30)
[2017-11-14] MEDS ORDERED: Warfarin 2.5 MG Tab PO SCH (16:30)
[2017-11-14] MEDS: Furosemide 40 MG Tab PO SCH (17:22)
[2017-11-14] MEDS ORDERED: Famotidine 10 MG Tab PO PRN (18:00)
[2017-11-14] MEDS: Melatonin 3 MG Tab PO SCH (18:05)
[2017-11-14] MEDS: Insulin Aspart 100 Units/ML 3 ML Pen SUBCUT SCH (18:05)
[2017-11-14] MEDS: Simvastatin 40 MG Tab PO SCH (18:05)
[2017-11-14] MEDS: Aspirin 325 MG Tab.EC PO SCH (20:38)
[2017-11-14] MEDS: Gabapentin 300 MG Cap PO SCH (20:39)
[2017-11-14] MEDS: Lisinopril 5 MG Tab PO SCH (20:39)
[2017-11-14] MEDS: FLUoxetine 20 MG Cap PO SCH (20:40)
[2017-11-14] MEDS: Insulin Detemir 100 Units/ML 3 ML Pen SUBCUT SCH (20:47)
[2017-11-14] MEDS ORDERED: Metoprolol Succinate 50 MG Tab.ER PO SCH (21:00)
[2017-11-14] MEDS: Acetaminophen 500 MG Tab PO SCH (21:22)
[2017-11-15] MEDS ORDERED: Metolazone 2.5 MG Tab PO SCH (07:30)
--- NOTE | 2017-11-15 08:09 | PCM.HP ---
H&P History of Present Illness - General Date of Service: 11/15/17 Admit Problem/Dx: Admission Diagnosis/Problem Admission Diagnosis/Problem Weakness Source of Information: Patient, Family, Old Records - History of Present Illness Initial Comments - Free Text/Narative: Brigido is a 72-year-old female was brought in because of generalized weakness. She 's had physical deconditioning over the last several months, to the extent of a short term admission to the senior care in September. She has since shown progressive weakness and inability to take care of herself at home. In fact there was a plan to take her back to the senior care next week but got to weak over this last couple of days that the could no longer take care of her. She is unable to do the activities of daily living e.g. dressing, toileting or bathing by herself. The cause of the weakness is thought to be multifactorial. Her pas includes stable coronary disease, essential tremors, afib( on chronic anticoagulation),a previous stroke, and obesity. She has type 2 diabetes that is well controlled and hypertension that is stable. She also has visual loss that is making it harder to take care of herself,falling several times at home in the past.. - Related Data Allergies/Adverse Reactions: Allergies Allergy/AdvReac Type Severity Reaction Status Date / Time hydrocodone Allergy Hallucinati Verified 11/14/17 15:27 ons oxycodone Allergy Hallucinati Verified 11/14/17 15:27 ons Home Medications: Home Meds Aspirin 325 mg PO BEDTIME 08/19/15 [History] FLUoxetine HCl [Fluoxetine HCl] 40 mg PO BEDTIME 08/19/15 [History] Furosemide 40 mg PO BID@08,15 08/19/15 [History] Insulin Isophane NPH, Human [NovoLIN N] 50 units SQ BID 08/19/15 [History] Insulin Regular, Human [NovoLIN R] 14 units SQ TIDMEALS 08/19/15 [History] Lisinopril 5 mg PO WITHDINNER 08/19/15 [History] Metoprolol Succinate 50 mg PO WITHDINNER 08/19/15 [History] Simvastatin 40 mg PO PCDINNER 08/19/15 [History] Gabapentin [Neurontin] 300 mg PO TID@08,12,21 11/15/15 [History] Nitroglycerin [Nitrostat] 0.4 mg SL DAILY PRN 07/10/16 [History] Metolazone 2.5 mg PO WESA@0730 12/03/16 [History] Calcium Citrate/Vitamin D3 [Citracal + D Maximum [place]] 1 tab PO DAILY [History] Cholecalciferol (Vitamin D3) [Vitamin D3] 2,000 unit PO DAILY 07/13/17 [History] Magnesium 250 mg PO DAILY 07/13/17 [History] Albuterol Sulfate [Proair Hfa] 1 - 2 puff IH Q4H PRN 07/14/17 [History] Polyvinyl Alcohol [Artificial Tears] 1 drop EYEBOTH Q4H PRN 07/14/17 [History] traMADol [Ultram] 50 mg PO Q8H PRN #30 tablet 07/18/17 [Rx] Oxybutynin Chloride [Ditropan Xl] 10 mg PO DAILY 10/29/17 [History] Ranitidine [Zantac] 75 mg PO DAILY PRN 10/29/17 [History] Warfarin [Coumadin] 1.25 mg PO MOFR 10/29/17 [History] Warfarin [Coumadin] 2.5 mg PO SUTUWETHSA 10/29/17 [History] Acetaminophen [Tylenol Extra Strength] 1,000 mg PO TID 11/14/17 [History] Melatonin 3 mg PO WITHDINNER 11/14/17 [History] Past Medical History HEENT History: Reports: Cataract, Hard of Hearing, Impaired Vision, Other (See Below) Other HEENT History: macular degeneration Cardiovascular History: Reports: Afib, Bypass, High Cholesterol, Hypertension, RI Other Cardiovascular History: IRREGULAR HEARTBEAT IN PAST. HX OF DIZZYNESS Respiratory History: Reports: Pneumonia, Recurrent Other Respiratory History: Hx rib fracture. Gastrointestinal History: Reports: Cholelithiasis Genitourinary History: Reports: Urinary Incontinence Other Genitourinary History: Hx asymptomatic bacteriuria. 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: Musculoskeletal History: Reports: Other (See Below) Other Musculoskeletal History: walks with walker gait unsteady Neurological History: Reports: Neuropathy, Diabetic, Vertigo Other Neuro History: hx tremors, states is not parkinson's Psychiatric History: Reports: Depression Other Psychiatric History: ON MEDICATION FOR DEPRESSION Endocrine/Metabolic History: Reports: Diabetes, Type II - Infectious Disease History Infectious Disease History: Reports: Chicken Pox, Measles, Shingles - Past Surgical History Cardiovascular Surgical History: Reports: Coronary Artery Bypass, Coronary Artery Stent GI Surgical History: Reports: Appendectomy, Cholecystectomy Musculoskeletal Surgical History: Reports: ORIF Social & Family History - Family History Family Medical History: Noncontributory Endocrine/Metabolic: Reports: Diabetes, type II Oncologic: Reports: Renal - Tobacco Use Smoking Status *Q: Former Smoker Years of Tobacco use: 15 Used Tobacco, but Quit: Yes Month/Year Tobacco Last Used: 40 years ago Second Hand Smoke Exposure: No - Caffeine Use Caffeine Use: Reports: Soda - Recreational Drug Use Recreational Drug Use: No H&P Review of Systems - Review of Systems: Review Of Systems: ROS reveals no pertinent complaints other than HPI. Exam - Exam Exam: See Below - Vital Signs Vital Signs: Last Vital Signs Temp 97.8 F 11/15/17 03:56 Pulse 57 L 11/15/17 03:56 Resp 17 11/15/17 03:56 BP 122/50 L 11/15/17 03:56 Pulse Ox 95 11/15/17 07:57 Weight: 114.215 kg - Exam Quality Assessment: Supplemental Oxygen General: Alert HEENT: PERRLA, Hearing Intact, Mucosa Moist & [place], Nares Patent, Normal Nasal Septum, Posterior Pharynx Clear, Conjunctiva Clear, EOMI, EACs Clear, TMs Clear Neck: Supple, Trachea Midline, 2 Lungs: Clear to Auscultation, Normal Respiratory Effort Cardiovascular: Regular Rate, Regular Rhythm GI/Abdominal Exam: Normal Bowel Sounds, Soft, Non-Tender, No Organomegaly, No Distention, No Abnormal Bruit, No Mass, Pelvis Stable (Female) Exam: Deferred Rectal (Female) Exam: Deferred Back Exam: Normal Inspection, Full Range of Motion, NT Extremities: Normal Inspection, Normal Range of Motion, Non-Tender, No Pedal Edema, Normal Capillary Refill Neurological: Cranial Nerves Intact, Other (Tremors) Neuro Extensive - Motor, Sensory, Reflexes: CN II-XII Intact, Normal Gait, Normal Reflexes Psychiatric: Alert, Depressed - Patient Data Lab Results Last 24 hrs: Laboratory Results - last 24 hr 11/14/17 11/14/17 11/14/17 Range/Units 14:42 14:43 14:43 WBC 10.4 (4.5-12.0) X10-3/uL RBC 3.61 (3.23-5.20) x10(6)uL Hgb 12.0 (11.5-15.5) g/dL Hct 36.2 (30.0-51.3) % MCV 100.1 H (80-96) fL MCH 33.3 (27.7-33.6) pg MCHC 33.3 (32.2-35.4) g/dL RDW 15.2 (11.5-15.5) % Plt Count 215 (125-369) X10(3)uL PT 30.4 H (8.7-11.1) INR 3.17 H (0.89-1.13) Sodium (135-145) mmol/L Potassium (3.5-5.3) mmol/L Chloride (100-110) mmol/L Carbon Dioxide (21-32) mmol/L BUN (7-18) mg/dL Creatinine (0.55-1.02) mg/dL Est Cr Clr Drug Dosing Estimated GFR (MDRD) (>60) BUN/Creatinine Ratio (9-20) Glucose (80-116) mg/dL POC Glucose (80-116) mg/dL Calcium (8.6-10.2) mg/dL Magnesium (1.8-2.5) mg/dL Creatine Kinase (60-160) IU/L Troponin I < 0.017 L (<0.017-0.056) ng/mL NT-Pro-B Natriuret Pep 2843 H* (<=125) pg/mL Urine Color (YELLOW) Urine Appearance (CLEAR) Urine pH (5.0-6.5) Ur Specific [place] (1.010-1.025) Urine Protein (NEGATIVE) mg/dL Urine Glucose (UA) (NEGATIVE) mg/dL Urine Ketones (NEGATIVE) mg/dL Urine Occult Blood (NEGATIVE) Urine Nitrite (NEGATIVE) Urine Bilirubin (NEGATIVE) Urine Urobilinogen (NEGATIVE) mg/dL Ur Leukocyte Esterase (NEGATIVE) Urine RBC (0) Urine WBC (0) Ur Squamous Epith Cells (NS,R,O) Urine Bacteria (NS) Urine Mucus (NS) 11/14/17 11/14/17 11/14/17 Range/Units 14:43 14:43 14:43 WBC (4.5-12.0) X10-3/uL RBC (3.23-5.20) x10(6)uL Hgb (11.5-15.5) g/dL Hct (30.0-51.3) % MCV (80-96) fL MCH (27.7-33.6) pg MCHC (32.2-35.4) g/dL RDW (11.5-15.5) % Plt Count (125-369) X10(3)uL PT (8.7-11.1) INR (0.89-1.13) Sodium 139 (135-145) mmol/L Potassium 4.8 D (3.5-5.3) mmol/L Chloride 105 (100-110) mmol/L Carbon Dioxide 28 (21-32) mmol/L BUN 36 H (7-18) mg/dL Creatinine 1.3 H (0.55-1.02) mg/dL Est Cr Clr Drug Dosing TNP Estimated GFR (MDRD) 40 L (>60) BUN/Creatinine Ratio 27.7 H (9-20) Glucose 296 H D (80-116) mg/dL POC Glucose (80-116) mg/dL Calcium 8.5 L (8.6-10.2) mg/dL Magnesium 2.0 (1.8-2.5) mg/dL Creatine Kinase 22 L (60-160) IU/L Troponin I (<0.017-0.056) ng/mL NT-Pro-B Natriuret Pep (<=125) pg/mL Urine Color (YELLOW) Urine Appearance (CLEAR) Urine pH (5.0-6.5) Ur Specific [place] (1.010-1.025) Urine Protein (NEGATIVE) mg/dL Urine Glucose (UA) (NEGATIVE) mg/dL Urine Ketones (NEGATIVE) mg/dL Urine Occult Blood (NEGATIVE) Urine Nitrite (NEGATIVE) Urine Bilirubin (NEGATIVE) Urine Urobilinogen (NEGATIVE) mg/dL Ur Leukocyte Esterase (NEGATIVE) Urine RBC (0) Urine WBC (0) Ur Squamous Epith Cells (NS,R,O) Urine Bacteria (NS) Urine Mucus (NS) 11/14/17 11/14/17 11/15/17 Range/Units 15:39 17:37 06:15 WBC (4.5-12.0) X10-3/uL RBC (3.23-5.20) x10(6)uL Hgb (11.5-15.5) g/dL Hct (30.0-51.3) % MCV (80-96) fL MCH (27.7-33.6) pg MCHC (32.2-35.4) g/dL RDW (11.5-15.5) % Plt Count (125-369) X10(3)uL PT (8.7-11.1) INR (0.89-1.13) Sodium (135-145) mmol/L Potassium (3.5-5.3) mmol/L Chloride (100-110) mmol/L Carbon Dioxide (21-32) mmol/L BUN (7-18) mg/dL Creatinine (0.55-1.02) mg/dL Est Cr Clr Drug Dosing Estimated GFR (MDRD) (>60) BUN/Creatinine Ratio (9-20) Glucose (80-116) mg/dL POC Glucose 229 H 146 H D (80-116) mg/dL Calcium (8.6-10.2) mg/dL Magnesium (1.8-2.5) mg/dL Creatine Kinase (60-160) IU/L Troponin I (<0.017-0.056) ng/mL NT-Pro-B Natriuret Pep (<=125) pg/mL Urine Color [place] (YELLOW) Urine Appearance Slightly cloudy (CLEAR) Urine pH 5.0 (5.0-6.5) Ur Specific [place] 1.020 (1.010-1.025) Urine Protein Negative (NEGATIVE) mg/dL Urine Glucose (UA) 250 H (NEGATIVE) mg/dL Urine Ketones Negative (NEGATIVE) mg/dL Urine Occult Blood Negative (NEGATIVE) Urine Nitrite Negative (NEGATIVE) Urine Bilirubin Small H (NEGATIVE) Urine Urobilinogen 1 H (NEGATIVE) mg/dL Ur Leukocyte Esterase Negative (NEGATIVE) Urine RBC 0-5 (0) Urine WBC 0-5 (0) Ur Squamous Epith Cells Moderate H (NS,R,O) Urine Bacteria Moderate H (NS) Urine Mucus Few H (NS) 11/15/17 Range/Units 06:22 WBC (4.5-12.0) X10-3/uL RBC (3.23-5.20) x10(6)uL Hgb (11.5-15.5) g/dL Hct (30.0-51.3) % MCV (80-96) fL MCH (27.7-33.6) pg MCHC (32.2-35.4) g/dL RDW (11.5-15.5) % Plt Count (125-369) X10(3)uL PT 26.5 H (8.7-11.1) INR 2.76 H (0.89-1.13) Sodium (135-145) mmol/L Potassium (3.5-5.3) mmol/L Chloride (100-110) mmol/L Carbon Dioxide (21-32) mmol/L BUN (7-18) mg/dL Creatinine (0.55-1.02) mg/dL Est Cr Clr Drug Dosing Estimated GFR (MDRD) (>60) BUN/Creatinine Ratio (9-20) Glucose (80-116) mg/dL POC Glucose (80-116) mg/dL Calcium (8.6-10.2) mg/dL Magnesium (1.8-2.5) mg/dL Creatine Kinase (60-160) IU/L Troponin I (<0.017-0.056) ng/mL NT-Pro-B Natriuret Pep (<=125) pg/mL Urine Color (YELLOW) Urine Appearance (CLEAR) Urine pH (5.0-6.5) Ur Specific [place] (1.010-1.025) Urine Protein (NEGATIVE) mg/dL Urine Glucose (UA) (NEGATIVE) mg/dL Urine Ketones (NEGATIVE) mg/dL Urine Occult Blood (NEGATIVE) Urine Nitrite (NEGATIVE) Urine Bilirubin (NEGATIVE) Urine Urobilinogen (NEGATIVE) mg/dL Ur Leukocyte Esterase (NEGATIVE) Urine RBC (0) Urine WBC (0) Ur Squamous Epith Cells (NS,R,O) Urine Bacteria (NS) Urine Mucus (NS) Result Diagrams: 11/14/17 14:43 11/14/17 14:43 - Problem List (1) Physical debility SNOMED Code(s): 01807272 ICD Code: R53.81 - OTHER MALAISE Status: Acute Current Visit: Yes (2) Afib SNOMED Code(s): 61759385 ICD Code: I48.91 - UNSPECIFIED ATRIAL FIBRILLATION Status: Acute Current Visit: No Qualifiers: Atrial fibrillation type: unspecified Qualified Code(s): I48.91 - Unspecified atrial fibrillation (3) CHF, Congestive heart failure SNOMED Code(s): 32085577 ICD Code: I50.9 - HEART FAILURE, UNSPECIFIED Status: Acute Current Visit : No (4) Fatigue SNOMED Code(s): 02526984 ICD Code: R53.83 - OTHER FATIGUE Status: Acute Current Visit: No Qualifiers: Fatigue type: unspecified Qualified Code(s): R53.83 - Other fatigue (5) Frequent falls SNOMED Code(s): 964178105 ICD Code: R29.6 - REPEATED FALLS Status: Acute Current Visit: No (6) CAD (coronary artery disease) SNOMED Code(s): 55730698 ICD Code: I25.10 - ATHSCL HEART DISEASE OF [place] CORONARY ARTERY W/O ANG PCTRS Status: Chronic Current Visit: No Qualifiers: Coronary Disease-Associated Artery/Lesion type: bypass graft [place] vs. transplanted heart: [place] heart Associated angina: without angina Qualified Code(s): I25.810 - Atherosclerosis of coronary artery bypass graft(s) without angina pectoris (7) DM2 (diabetes mellitus, type 2) SNOMED Code(s): 90948591 ICD Code: E11.9 - TYPE 2 DIABETES MELLITUS WITHOUT COMPLICATIONS Status: Chronic Current Visit: No Qualifiers: Diabetes mellitus terminal superintendent insulin use: with terminal superintendent use Diabetes mellitus complication status: with other specified complication Qualified Code (s): E11.69 - Type 2 diabetes mellitus with other specified complication; Z79.4 - terminal superintendent (current) use of insulin; Z79.4 - FPC (current) use of insulin ; Z79.4 - FPC (current) use of insulin; Z79.4 - terminal superintendent (current) use of insulin (8) Essential tremor SNOMED Code(s): 202399559 ICD Code: G25.0 - ESSENTIAL TREMOR Status: Chronic Current Visit: No (9) Obesity SNOMED Code(s): 881607584, 732981428 ICD Code: E66.9 - OBESITY, UNSPECIFIED Status: Chronic Current Visit: No Qualifiers: Obesity type: due to excess calories Serious obesity comorbidity presence: with serious comorbidity Problem List Initiated/Reviewed/Updated: Yes Orders Last 24hrs: Active Orders 24 hr Category Date Time Status Patient Status [ADT] Routine ADT 11/14/17 16:06 Active Blood Glucose Check, Bedside [] 07,1730 Care 11/14/17 16:05 Active Oxygen Therapy [] PRN Care 11/14/17 16:06 Active Up With Assistance [] 09,13,17,21 Care 11/14/17 16:05 Active Vital Signs [RC] 04,08,12,16,20,00 Care 11/14/17 16:06 Active INR,PT,PROTHROMBIN TIME [COAG] DAILY Lab 11/16/17 06:00 Ordered INR,PT,PROTHROMBIN TIME [COAG] DAILY Lab 11/17/17 06:00 Ordered INR,PT,PROTHROMBIN TIME [COAG] DAILY Lab 11/18/17 06:00 Ordered INR,PT,PROTHROMBIN TIME [COAG] DAILY Lab 11/19/17 06:00 Ordered INR,PT,PROTHROMBIN TIME [COAG] DAILY Lab 11/20/17 06:00 Ordered UA W/MICROSCOPIC [URIN] Stat Lab 11/14/17 15:39 Ordered Acetaminophen [Tylenol Extra Strength] Med 11/14/17 21:00 Active 1,000 mg PO TID@0800,1200,2100 Albuterol [Ventolin HFA] Med 11/14/17 16:30 Active 0 gm INH Q4H PRN Aspirin [Ecotrin] Med 11/14/17 21:00 Active 325 mg PO BEDTIME Calcium Carbonate/Vitamin D3 [Calcium Carbonate/Vitamin Med 11/15/17 09:00 Active D 1250 MG-200 Unit] 1 tab PO DAILY Cholecalciferol (Vitamin D3) [Vitamin D3] Med 11/15/17 09:00 Active 2,000 units PO DAILY FLUoxetine [PROzac] Med 11/14/17 21:00 Active 40 mg PO BEDTIME Famotidine [Pepcid] Med 11/14/17 18:00 Active 10 mg PO DAILY PRN Furosemide [Lasix] Med 11/14/17 17:00 Active 40 mg PO BID@0800,1400 Gabapentin [Neurontin] Med 11/14/17 21:00 Active 300 mg PO TID@0800,1200,2100 Insulin Aspart [NovoLOG] Med 11/14/17 18:00 Active 14 unit SUBCUT TIDMEALS Insulin Detemir [Levemir] Med 11/14/17 21:00 Active 50 unit SUBCUT BID Lisinopril [Prinivil] Med 11/14/17 21:00 Active 5 mg PO BEDTIME Magnesium Oxide Med 11/15/17 09:00 Active 400 mg PO DAILY Melatonin Med 11/14/17 18:00 Active 3 mg PO WITHDINNER Metolazone [Zaroxolyn] Med 11/15/17 07:30 Active 2.5 mg PO WESA@0730 Metoprolol Succinate [Toprol XL] Med 11/14/17 21:00 Active 50 mg PO BEDTIME Nitroglycerin [Nitrostat] Med 11/14/17 16:30 Active 0.4 mg SL DAILY PRN Oxybutynin [Oxybutynin ER] Med 11/15/17 09:00 Active 10 mg PO DAILY Polyvinyl Alcohol [LiquiTears 1.4% Ophth Soln] Med 11/14/17 16:30 Active 0 ml EYEBOTH Q4H PRN Simvastatin [Zocor] Med 11/14/17 19:00 Active 40 mg PO PCDINNER Warfarin [Coumadin] Med 11/14/17 17:00 Active 1 mg PO DAILY@1600 Warfarin [Coumadin] Med 11/14/17 16:30 Hold 1.25 mg PO MOFR Warfarin [Coumadin] Med 11/15/17 16:30 Hold 2.5 mg PO SUTUWETHSA traMADol [Ultram] Med 11/14/17 16:30 Active 50 mg PO Q8H PRN Resuscitation Status Routine Resus Stat 11/14/17 16:05 Ordered EKG 12 Lead [EK] Routine Ther 11/14/17 15:23 Ordered Medication Orders Acetaminophen (Tylenol Extra Strength) 1,000 mg PO TID@0800,1200,2100 [facility] Last Admin: 11/14/17 21:22 Dose: 1,000 mg Albuterol (Ventolin Hfa) 0 gm INH Q4H PRN PRN Reason: BREATHING, WHEEZING, COUGH Artificial Tears (Liquitears 1.4% Ophth Soln) 0 ml EYEBOTH Q4H PRN PRN Reason: Dry Eyes Aspirin (Ecotrin) 325 mg PO BEDTIME [facility] Last Admin: 11/14/17 20:38 Dose: 325 mg Calcium Carbonate (Calcium Carbonate/Vitamin D 1250 Mg-200 Unit) 1 tab PO DAILY [facility] Cholecalciferol (Vitamin D3) 2,000 units PO DAILY [facility] Famotidine (Pepcid) 10 mg PO DAILY PRN PRN Reason: HEARTBURN Fluoxetine HCl (Prozac) 40 mg PO BEDTIME [facility] Last Admin: 11/14/17 20:40 Dose: 40 mg Furosemide (Lasix) 40 mg PO BID@0800,1400 [facility] Last Admin: 11/14/17 17:22 Dose: 40 mg Gabapentin (Neurontin) 300 mg PO TID@0800,1200,2100 [facility] Last Admin: 11/14/17 20:39 Dose: 300 mg Insulin Aspart (Novolog) 14 unit SUBCUT TIDMEALS [facility] Last Admin: 11/14/17 18:05 Dose: 14 units Insulin Detemir (Levemir) 50 unit SUBCUT BID [facility] Last Admin: 11/14/17 20:47 Dose: 50 units Lisinopril (Prinivil) 5 mg PO BEDTIME [facility] Last Admin: 11/14/17 20:39 Dose: 5 mg Magnesium Oxide (Magnesium Oxide) 400 mg PO DAILY [facility] Melatonin (Melatonin) 3 mg PO WITHDINNER [facility] Last Admin: 11/14/17 18:05 Dose: 3 mg Metolazone (Zaroxolyn) 2.5 mg PO WESA@0730 [facility] Last Admin: 11/15/17 07:36 Dose: 2.5 mg Metoprolol Succinate (Toprol Xl) 50 mg PO BEDTIME [facility] Last Admin: 11/14/17 20:50 Dose: Not Given Nitroglycerin (Nitrostat) 0.4 mg SL DAILY PRN PRN Reason: Chest Pain Oxybutynin Chloride (Oxybutynin Er) 10 mg PO DAILY [facility] Simvastatin (Zocor) 40 mg PO PCDINNER [facility] Last Admin: 11/14/17 18:05 Dose: 40 mg Tramadol HCl (Ultram) 50 mg PO Q8H PRN PRN Reason: Breakthrough Pain Last Admin: 11/14/17 16:41 Dose: 50 mg Warfarin Sodium (Coumadin) 2.5 mg PO SUTUWETHSA [facility] Warfarin Sodium (Coumadin) 1.25 mg PO MOFR [facility] Warfarin Sodium (Coumadin) 1 mg PO DAILY@1600 [facility] Stop: 11/15/17 16:01 Last Admin: 11/14/17 17:22 Dose: 1 mg Assessment/Plan Comment:: Brigido will need aggressive physical and occupational therapy. We'll continue to current medications, but I recommended decreasing the dose of gabapentin, and discontinue metoprolol in favor of carvedilol. This is an attempt to help weakness fatigue and also prevent frequent falls. I'll also recommend to keep a tight glycemic control.
[2017-11-15] MEDS: Gabapentin 300 MG Cap PO SCH ×2 (08:25→20:56)
[2017-11-15] MEDS: Furosemide 40 MG Tab PO SCH ×2 (08:26→15:16)
[2017-11-15] MEDS: Insulin Aspart 100 Units/ML 3 ML Pen SUBCUT SCH ×3 (08:27→18:28)
[2017-11-15] MEDS: Acetaminophen 500 MG Tab PO SCH ×3 (08:27→20:57)
[2017-11-15] MEDS: Calcium Carbonate/Vitamin D3 1250 MG-200 Unit Tab PO SCH (08:28)
[2017-11-15] MEDS: Insulin Detemir 100 Units/ML 3 ML Pen SUBCUT SCH ×2 (08:29→21:00)
[2017-11-15] MEDS: Oxybutynin 5 MG Tab.ER PO SCH (08:30)
[2017-11-15] MEDS: Cholecalciferol (Vitamin D3) 1,000 Unit Tab PO SCH (08:30)
[2017-11-15] MEDS: Magnesium Oxide 400 MG Tab PO SCH (08:31)
[2017-11-15] MEDS: Carvedilol 6.25 MG Tab PO SCH ×2 (08:32→20:55)
[2017-11-15] MEDS ORDERED: ALBUTEROL INH PRN (16:21)
[2017-11-15] MEDS ORDERED: Warfarin 2.5 MG Tab PO SCH (16:30)
[2017-11-15] MEDS: Melatonin 3 MG Tab PO SCH (18:28)
[2017-11-15] MEDS ORDERED: Simvastatin 40 MG Tab ONE (20:54)
[2017-11-15] MEDS: Simvastatin 40 MG Tab PO SCH (20:55)
[2017-11-15] MEDS: Aspirin 325 MG Tab.EC PO SCH (20:56)
[2017-11-15] MEDS: Lisinopril 5 MG Tab PO SCH (20:56)
[2017-11-15] MEDS: FLUoxetine 20 MG Cap PO SCH (20:57)
[2017-11-16] MEDS: Furosemide 40 MG Tab PO SCH ×2 (08:07→14:42)
[2017-11-16] MEDS: Insulin Aspart 100 Units/ML 3 ML Pen SUBCUT SCH ×3 (08:07→18:12)
[2017-11-16] MEDS: Cholecalciferol (Vitamin D3) 1,000 Unit Tab PO SCH (08:08)
[2017-11-16] MEDS: Magnesium Oxide 400 MG Tab PO SCH (08:08)
[2017-11-16] MEDS: Acetaminophen 500 MG Tab PO SCH ×3 (08:08→20:51)
[2017-11-16] MEDS: Insulin Detemir 100 Units/ML 3 ML Pen SUBCUT SCH ×2 (08:09→20:52)
[2017-11-16] MEDS: Oxybutynin 5 MG Tab.ER PO SCH (08:09)
[2017-11-16] MEDS: Calcium Carbonate/Vitamin D3 1250 MG-200 Unit Tab PO SCH (08:10)
[2017-11-16] MEDS: Carvedilol 6.25 MG Tab PO SCH ×2 (09:26→20:50)
[2017-11-16] MEDS ORDERED: Warfarin Sliding Scale PO SCH (10:15)
[2017-11-16] MEDS ORDERED: Magnesium Hydroxide 400 MG/5 ML Susp 30 ML Cup PO PRN (10:47)
[2017-11-16] MEDS: Melatonin 3 MG Tab PO SCH (18:09)
[2017-11-16] MEDS: Simvastatin 40 MG Tab PO SCH (18:12)
[2017-11-16] MEDS: Aspirin 325 MG Tab.EC PO SCH (20:50)
[2017-11-16] MEDS: Gabapentin 300 MG Cap PO SCH (20:50)
[2017-11-16] MEDS: FLUoxetine 20 MG Cap PO SCH (20:51)
[2017-11-16] MEDS: Lisinopril 5 MG Tab PO SCH (20:51)
--- NOTE | 2017-11-16 22:39 | PN ---
DATE SEEN: 11/16/2017 CHIEF COMPLAINT: Generalized weakness. HISTORY OF PRESENT ILLNESS: A 72-year-old female with generalized weakness, deconditioning, tremors, history of CAD, and type 2 diabetes has no complaints today and was able to walk with assistance today. REVIEW OF SYSTEMS: No chest pain. No fever. MEDICATIONS: Reviewed. PHYSICAL EXAMINATION: GENERAL: She is not in distress. VITAL SIGNS: She has normal blood pressure and temperature. ENT: Negative. CHEST: Clear. CARDIOVASCULAR: Normal. MENTAL STATUS: Alert. LABORATORIES: White cell count 7.2 and normal hemoglobin. INR is 2.8. IMPRESSION: 1. Physical deconditioning. 2. Generalized weakness. 3. Type 2 diabetes. 4. Coronary artery disease. 5. Tremors. 6. Visual disturbance. PLAN: Continue current therapy with Physical and Occupational involvement and medical office assistant for placement in the next 1 to 2 days. /[id number] SANDRINE/LUAN
[2017-11-17] MEDS: Carvedilol 6.25 MG Tab PO SCH ×2 (08:07→20:59)
[2017-11-17] MEDS: Oxybutynin 5 MG Tab.ER PO SCH (08:07)
[2017-11-17] MEDS: Furosemide 40 MG Tab PO SCH ×2 (08:08→14:06)
[2017-11-17] MEDS: Insulin Aspart 100 Units/ML 3 ML Pen SUBCUT SCH ×3 (08:08→17:47)
[2017-11-17] MEDS: Acetaminophen 500 MG Tab PO SCH ×3 (08:08→20:58)
[2017-11-17] MEDS: Insulin Detemir 100 Units/ML 3 ML Pen SUBCUT SCH ×2 (08:08→21:03)
[2017-11-17] MEDS: Calcium Carbonate/Vitamin D3 1250 MG-200 Unit Tab PO SCH (08:08)
[2017-11-17] MEDS: Magnesium Oxide 400 MG Tab PO SCH (08:08)
[2017-11-17] MEDS: Cholecalciferol (Vitamin D3) 1,000 Unit Tab PO SCH (08:08)
--- NOTE | 2017-11-17 11:39 | PN ---
DATE SEEN: 11/17/2017 REASON FOR VISIT: Weakness. HISTORY OF PRESENT ILLNESS: A 72-year-old female who has generalized weakness. She complains of [id number] shortness of breath today, on ambulation. She also still feels weak and has difficulty with vision, longstanding. She has tremors that are stable. She is unable to return home independently. REVIEW OF SYSTEMS: All other systems negative. MEDICATIONS: Reviewed. ALLERGIES: Reviewed. PHYSICAL EXAMINATION: VITAL SIGNS: Blood pressure is 123/49 and pulse is 54. ENT: Negative. CHEST: Clear. CARDIOVASCULAR: Normal. MENTAL STATUS: Alert. LABORATORY DATA: INR is 2.12. IMPRESSION: 1. Generalized debility and weakness. 2. Physical deconditioning. 3. Type 2 diabetes. 4. History of coronary artery disease. 5. Tremors. 6. Visual disturbance. 7. Shortness of breath on ambulation. PLAN: We will plan to obtain a chest x-ray and repeat some labs. Continue with physical therapy. /[id number] SANDRINE/LUAN
[2017-11-17] MEDS: Melatonin 3 MG Tab PO SCH (17:47)
[2017-11-17] MEDS: Simvastatin 40 MG Tab PO SCH (18:31)
[2017-11-17] MEDS: Gabapentin 300 MG Cap PO SCH (20:57)
[2017-11-17] MEDS: FLUoxetine 20 MG Cap PO SCH (20:57)
[2017-11-17] MEDS: Aspirin 325 MG Tab.EC PO SCH (20:57)
[2017-11-17] MEDS: Lisinopril 5 MG Tab PO SCH (20:59)
[2017-11-18] MEDS: Furosemide 40 MG Tab PO SCH ×2 (08:05→13:12)
[2017-11-18] MEDS: Acetaminophen 500 MG Tab PO SCH ×2 (08:05→12:10)
[2017-11-18] MEDS: Calcium Carbonate/Vitamin D3 1250 MG-200 Unit Tab PO SCH (08:06)
[2017-11-18] MEDS: Oxybutynin 5 MG Tab.ER PO SCH (08:06)
[2017-11-18] MEDS: Magnesium Oxide 400 MG Tab PO SCH (08:06)
[2017-11-18] MEDS: Carvedilol 6.25 MG Tab PO SCH (08:07)
[2017-11-18] MEDS: Cholecalciferol (Vitamin D3) 1,000 Unit Tab PO SCH (08:07)
[2017-11-18] MEDS: Insulin Aspart 100 Units/ML 3 ML Pen SUBCUT SCH ×2 (08:12→12:10)
[2017-11-18] MEDS: Insulin Detemir 100 Units/ML 3 ML Pen SUBCUT SCH (08:12)
--- NOTE | 2017-11-18 09:26 | PCM.PN ---
- General Info Date of Service: 11/18/17 Subjective Update: Brigido has no new complaints. She was not short of breath yesterday but is able to ambulate with minimal assistance. She still has visual loss disturbance, chronic and generalized weakness. - Review of Systems HEENT: Reports: No Symptoms Gastrointestinal: Reports: No Symptoms Genitourinary: Reports: No Symptoms - Patient Data Vitals - Most Recent: Last Vital Signs Temp 97.7 F 11/17/17 23:43 Pulse 76 11/18/17 08:07 Resp 18 11/17/17 23:43 BP 110/51 L 11/18/17 08:07 Pulse Ox 91 L 11/18/17 06:45 Weight - Most Recent: 116.528 kg Lab Results Last 24 Hours: Laboratory Results - last 24 hr 11/17/17 11/17/17 11/17/17 Range/Units 05:33 10:00 10:00 WBC 6.0 (4.5-12.0) X10-3/uL RBC 3.71 (3.23-5.20) x10(6)uL Hgb 12.3 (11.5-15.5) g/dL Hct 36.8 (30.0-51.3) % MCV 99.2 H (80-96) fL MCH 33.1 (27.7-33.6) pg MCHC 33.4 (32.2-35.4) g/dL RDW 14.5 (11.5-15.5) % Plt Count 230 (125-369) X10(3)uL MPV 7.5 (7.4-10.4) fL Neut % (Auto) 61.1 (46-82) % Lymph % (Auto) 26.0 (13-37) % Larue % (Auto) 8.7 (4-12) % Eos % (Auto) 4 (1.0-5.0) % Baso % (Auto) 1 (0-2) % Neut # (Auto) 3.7 (1.6-8.3) # Lymph # (Auto) 1.6 (0.6-5.0) # Larue # (Auto) 0.5 (0.0-1.3) # Eos # (Auto) 0.2 (0.0-0.8) # Baso # (Auto) 0.0 (0.0-0.2) # PT (8.7-11.1) INR (0.89-1.13) Sodium 136 (135-145) mmol/L Potassium 4.7 (3.5-5.3) mmol/L Chloride 100 (100-110) mmol/L Carbon Dioxide 32 (21-32) mmol/L BUN 27 H (7-18) mg/dL Creatinine 1.0 (0.55-1.02) mg/dL Est Cr Clr Drug Dosing 44.41 mL/min Estimated GFR (MDRD) 54 L (>60) BUN/Creatinine Ratio 27.0 H (9-20) Glucose 227 H (80-116) mg/dL POC Glucose 154 H (80-116) mg/dL Calcium 8.9 (8.6-10.2) mg/dL NT-Pro-B Natriuret Pep (<=125) pg/mL 11/17/17 11/17/17 11/18/17 Range/Units 10:00 17:09 05:42 WBC (4.5-12.0) X10-3/uL RBC (3.23-5.20) x10(6)uL Hgb (11.5-15.5) g/dL Hct (30.0-51.3) % MCV (80-96) fL MCH (27.7-33.6) pg MCHC (32.2-35.4) g/dL RDW (11.5-15.5) % Plt Count (125-369) X10(3)uL MPV (7.4-10.4) fL Neut % (Auto) (46-82) % Lymph % (Auto) (13-37) % Larue % (Auto) (4-12) % Eos % (Auto) (1.0-5.0) % Baso % (Auto) (0-2) % Neut # (Auto) (1.6-8.3) # Lymph # (Auto) (0.6-5.0) # Larue # (Auto) (0.0-1.3) # Eos # (Auto) (0.0-0.8) # Baso # (Auto) (0.0-0.2) # PT (8.7-11.1) INR (0.89-1.13) Sodium (135-145) mmol/L Potassium (3.5-5.3) mmol/L Chloride (100-110) mmol/L Carbon Dioxide (21-32) mmol/L BUN (7-18) mg/dL Creatinine (0.55-1.02) mg/dL Est Cr Clr Drug Dosing mL/min Estimated GFR (MDRD) (>60) BUN/Creatinine Ratio (9-20) Glucose (80-116) mg/dL POC Glucose 165 H 180 H (80-116) mg/dL Calcium (8.6-10.2) mg/dL NT-Pro-B Natriuret Pep 1469 H* (<=125) pg/mL 11/18/17 Range/Units 06:40 WBC (4.5-12.0) X10-3/uL RBC (3.23-5.20) x10(6)uL Hgb (11.5-15.5) g/dL Hct (30.0-51.3) % MCV (80-96) fL MCH (27.7-33.6) pg MCHC (32.2-35.4) g/dL RDW (11.5-15.5) % Plt Count (125-369) X10(3)uL MPV (7.4-10.4) fL Neut % (Auto) (46-82) % Lymph % (Auto) (13-37) % Larue % (Auto) (4-12) % Eos % (Auto) (1.0-5.0) % Baso % (Auto) (0-2) % Neut # (Auto) (1.6-8.3) # Lymph # (Auto) (0.6-5.0) # Larue # (Auto) (0.0-1.3) # Eos # (Auto) (0.0-0.8) # Baso # (Auto) (0.0-0.2) # PT 20.6 H (8.7-11.1) INR 2.14 H (0.89-1.13) Sodium (135-145) mmol/L Potassium (3.5-5.3) mmol/L Chloride (100-110) mmol/L Carbon Dioxide (21-32) mmol/L BUN (7-18) mg/dL Creatinine (0.55-1.02) mg/dL Est Cr Clr Drug Dosing mL/min Estimated GFR (MDRD) (>60) BUN/Creatinine Ratio (9-20) Glucose (80-116) mg/dL POC Glucose (80-116) mg/dL Calcium (8.6-10.2) mg/dL NT-Pro-B Natriuret Pep (<=125) pg/mL Med Orders - Current: Current Medications Acetaminophen (Tylenol Extra Strength) 1,000 mg PO TID@0800,1200,2100 [facility] Last Admin: 11/18/17 08:05 Dose: 1,000 mg Albuterol (Ventolin Hfa) 0 gm INH Q4H PRN PRN Reason: BREATHING, WHEEZING, COUGH Stop: 11/21/17 00:05 Artificial Tears (Liquitears 1.4% Ophth Soln) 0 ml EYEBOTH Q4H PRN PRN Reason: Dry Eyes Aspirin (Ecotrin) 325 mg PO BEDTIME [facility] Last Admin: 11/17/17 20:57 Dose: 325 mg Calcium Carbonate (Calcium Carbonate/Vitamin D 1250 Mg-200 Unit) 1 tab PO DAILY [facility] Last Admin: 11/18/17 08:06 Dose: 1 tab Carvedilol (Coreg) 6.25 mg PO BID [facility] Last Admin: 11/18/17 08:07 Dose: 6.25 mg Cholecalciferol (Vitamin D3) 2,000 units PO DAILY [facility] Last Admin: 11/18/17 08:07 Dose: 2,000 units Famotidine (Pepcid) 10 mg PO DAILY PRN PRN Reason: HEARTBURN Fluoxetine HCl (Prozac) 40 mg PO BEDTIME [facility] Last Admin: 11/17/17 20:57 Dose: 40 mg Furosemide (Lasix) 40 mg PO BID@0800,1400 [facility] Last Admin: 11/18/17 08:05 Dose: 40 mg Gabapentin (Neurontin) 300 mg PO BEDTIME [facility] Last Admin: 11/17/17 20:57 Dose: 300 mg Insulin Aspart (Novolog) 14 unit SUBCUT TIDMEALS [facility] Last Admin: 11/18/17 08:12 Dose: 14 units Insulin Detemir (Levemir) 50 unit SUBCUT BID [facility] Last Admin: 11/18/17 08:12 Dose: 50 units Lisinopril (Prinivil) 5 mg PO BEDTIME [facility] Last Admin: 11/17/17 20:59 Dose: 5 mg Magnesium Hydroxide (Milk Of Magnesia) 30 ml PO DAILY PRN PRN Reason: Constipation Last Admin: 11/16/17 11:43 Dose: 30 ml Magnesium Oxide (Magnesium Oxide) 400 mg PO DAILY [facility] Last Admin: 11/18/17 08:06 Dose: 400 mg Melatonin (Melatonin) 3 mg PO WITHDINNER [facility] Last Admin: 11/17/17 17:47 Dose: 3 mg Metolazone (Zaroxolyn) 2.5 mg PO WESA@0730 [facility] Last Admin: 11/15/17 07:36 Dose: 2.5 mg Nitroglycerin (Nitrostat) 0.4 mg SL DAILY PRN PRN Reason: Chest Pain Oxybutynin Chloride (Oxybutynin Er) 10 mg PO DAILY [facility] Last Admin: 11/18/17 08:06 Dose: 10 mg Simvastatin (Zocor) 40 mg PO PCDINNER [facility] Last Admin: 11/17/17 18:31 Dose: 40 mg Tramadol HCl (Ultram) 50 mg PO Q8H PRN PRN Reason: Breakthrough Pain Last Admin: 11/14/17 16:41 Dose: 50 mg Warfarin Sodium (Coumadin Sliding Scale) 0 each PO ASDIRECTED [facility] Warfarin Sodium (Coumadin) 2.5 mg PO 1600 [facility] Stop: 11/18/17 16:01 Discontinued Medications Albuterol (Ventolin Hfa) 0 gm INH Q4H PRN PRN Reason: BREATHING, WHEEZING, COUGH Gabapentin (Neurontin) 300 mg PO TID@0800,1200,2100 [facility] Last Admin: 11/15/17 08:25 Dose: Not Given Metoprolol Succinate (Toprol Xl) 50 mg PO BEDTIME [facility] Last Admin: 11/14/17 20:50 Dose: Not Given Non-Formulary Medication (Ranitidine [Zantac]) 75 mg PO BEDTIME PRN PRN Reason: Dyspepsia Simvastatin (Zocor) Confirm Administered Dose 40 mg .ROUTE .STK-MED ONE Stop: 11/15/17 20:55 Last Admin: 11/15/17 22:06 Dose: Not Given Warfarin Sodium (Coumadin) 2.5 mg PO SUTUWETHSA [facility] Warfarin Sodium (Coumadin) 1.25 mg PO MOFR [facility] Warfarin Sodium (Coumadin) 1 mg PO DAILY@1600 [facility] Stop: 11/15/17 16:01 Last Admin: 11/15/17 15:16 Dose: 1 mg Warfarin Sodium (Coumadin) 1 mg PO DAILY@1600 [facility] Last Admin: 11/17/17 15:36 Dose: 1 mg - Exam Quality Assessment: No: Supplemental Oxygen General: Alert, Oriented HEENT: Pupils Equal Lungs: Crackles, Rales Cardiovascular: Regular Rate - Problem List & Annotations (1) Physical debility SNOMED Code(s): 90740609 Code(s): R53.81 - OTHER MALAISE Status: Acute Current Visit: Yes (2) Afib SNOMED Code(s): 11348233 Code(s): I48.91 - UNSPECIFIED ATRIAL FIBRILLATION Status: Acute Current Visit: No Qualifiers: Atrial fibrillation type: unspecified Qualified Code(s): I48.91 - Unspecified atrial fibrillation (3) CHF, Congestive heart failure SNOMED Code(s): 57126385 Code(s): I50.9 - HEART FAILURE, UNSPECIFIED Status: Acute Current Visit: No (4) Fatigue SNOMED Code(s): 53825620 Code(s): R53.83 - OTHER FATIGUE Status: Acute Current Visit: No Qualifiers: Fatigue type: unspecified Qualified Code(s): R53.83 - Other fatigue (5) Frequent falls SNOMED Code(s): 951259968 Code(s): R29.6 - REPEATED FALLS Status: Acute Current Visit: No (6) CAD (coronary artery disease) SNOMED Code(s): 25250724 Code(s): I25.10 - ATHSCL HEART DISEASE OF [place] CORONARY ARTERY W/O ANG PCTRS Status: Chronic Current Visit: No Qualifiers: Coronary Disease-Associated Artery/Lesion type: bypass graft [place] vs. transplanted heart: [place] heart Associated angina: without angina Qualified Code(s): I25.810 - Atherosclerosis of coronary artery bypass graft(s) without angina pectoris (7) DM2 (diabetes mellitus, type 2) SNOMED Code(s): 70941933 Code(s): E11.9 - TYPE 2 DIABETES MELLITUS WITHOUT COMPLICATIONS Status: Chronic Current Visit: No Qualifiers: Diabetes mellitus shelter insulin use: with exterminator helper use Diabetes mellitus complication status: with other specified complication Qualified Code (s): E11.69 - Type 2 diabetes mellitus with other specified complication; Z79.4 - intermediate (current) use of insulin; Z79.4 - intermediate (current) use of insulin ; Z79.4 - exterminator helper (current) use of insulin; Z79.4 - intermediate (current) use of insulin (8) Essential tremor SNOMED Code(s): 133639298 Code(s): G25.0 - ESSENTIAL TREMOR Status: Chronic Current Visit: No (9) Obesity SNOMED Code(s): 024650129, 791923212 Code(s): E66.9 - OBESITY, UNSPECIFIED Status: Chronic Current Visit: No Qualifiers: Obesity type: due to excess calories Serious obesity comorbidity presence: with serious comorbidity - Problem List Review Problem List Initiated/Reviewed/Updated: Yes - My Orders Last 24 Hours: My Active Orders 11/17/17 09:44 CXR [Chest 2V] [CR] Routine 11/18/17 16:00 Warfarin [Coumadin] 2.5 mg PO 1600 11/19/17 05:11 BASIC METABOLIC PANEL,BMP [CHEM] AM CBC WITH AUTO DIFF [HEME] AM MAGNESIUM [CHEM] AM 11/19/17 06:00 INR,PT,PROTHROMBIN TIME [COAG] DAILY 11/20/17 06:00 INR,PT,PROTHROMBIN TIME [COAG] DAILY - Assessment Assessment:: Continue oral Lasix, and continued physical and occupational therapy. Awaiting on direction from the director social service upon disposition. Meantime I will repeat a magnesium, basic profile and CBC in the morning. - Plan Plan:: Brigido will need aggressive physical and occupational therapy. We'll continue to current medications, but I recommended decreasing the dose of gabapentin, and discontinue metoprolol in favor of carvedilol. This is an attempt to help weakness fatigue and also prevent frequent falls. I'll also recommend to keep a tight glycemic control.
--- NOTE | 2017-11-18 10:30 | CR ---
INDICATION: Short of breath. TWO VIEWS CHEST: PA and lateral views of the chest - where compared with and 07-17-17 as well as 07-10-16 and revealed the grace to be enlarged with mild prominence of the upper pulmonary vasculature and interstitial markings suggesting CHF and interstitial lung edema. Minimal pleural effusion maybe present on the right with thickening of the minor fissure and very minimal blunting of the posterior sulcus on the right. The heart is enlarged with post median sternotomy change. Dextroconvex scoliosis of the thoracic spine is noted of moderate degree. Multiple rib fractures are suggested on the left present on the previous examination. No definite consolidating pneumonia or gross effusion was seen. The aorta is tortuous with calcification in the arch and descending portion. IMPRESSION: 1. Findings are compatible with ASHD, cardiomegaly, post median sternotomy change, CHF and interstitial lung edema-correlate clinically. 2. DJD spine with scoliosis. 3. Heavy markings likely fibrotic in nature with no definite consolidating pneumonia. MTDD
[2017-11-18] MEDS ORDERED: Tuberculin, PPD 5 Units/0.1 ML 1 ML MDV IDERM ONE (10:37)
[2017-11-18 10:39] VITALS: BP 110/55
--- NOTE | 2017-11-18 13:10 | DISCH ---
DISCHARGE DATE: 11/18/2017 REASON FOR ADMISSION: Generalized weakness and physical deconditioning. SECONDARY DIAGNOSES: 1. Atrial fibrillation. 2. Recent stroke. 3. Essential tremor. 4. Type 2 diabetes. 5. Frequent falls. 6. Coronary artery disease. 7. Congestive heart failure. CONSULTATIONS: Physical and Occupational Therapy. BRIEF HISTORY AND HOSPITAL COURSE: She is a 72-year-old female who came to the ER because the family were unable to take care of her. She has had multiple falls and has legal blindness, unable to see well, and has fallen several times in the house. She complained of extreme weakness and inability to do activities of daily living. She was basically admitted for physical therapy and after admission, they worked with her and the social work nurse was involved and the patient was accepted at [facility] on the . DISCHARGE MEDICATIONS: While in the hospital, I decreased the dose of gabapentin, discontinued metoprolol in favor of carvedilol, and we will continue the rest of the home medications including Coumadin. Please note that I spent more than 35 minutes in the discharge of the patient. /[id number] SANDRINE/LUAN
[2017-11-18] MEDS ORDERED: Warfarin 2.5 MG Tab PO SCH (16:00)
== END 2017-11-18 13:15 | DRG 948 ==
LOC: FB.ED 14:29 → FB.MS 16:17
PROVIDERS: ADMIT Emergency Medicine; ATTEND Family Medicine
DX: R53.1 Weakness (principal); I13.0 Hypertensive heart and chronic kidney disease with heart failure and stage 1 through stage 4 chronic kidney disease, or unspecified chronic kidney disease; Z68.41 Body mass index [BMI] 40.0-44.9, adult; I50.9 Heart failure, unspecified; Z66 Do not resuscitate; I25.10 Atherosclerotic heart disease of native coronary artery without angina pectoris; E66.01 Morbid (severe) obesity due to excess calories; E11.22 Type 2 diabetes mellitus with diabetic chronic kidney disease; Z79.4 Long term (current) use of insulin; R53.81 Other malaise; R53.83 Other fatigue; N18.9 Chronic kidney disease, unspecified; Z87.891 Personal history of nicotine dependence; E11.40 Type 2 diabetes mellitus with diabetic neuropathy, unspecified; I48.91 Unspecified atrial fibrillation; Z79.01 Long term (current) use of anticoagulants; E78.00 Pure hypercholesterolemia, unspecified; G25.0 Essential tremor; R29.6 Repeated falls; Z95.1 Presence of aortocoronary bypass graft; Z95.5 Presence of coronary angioplasty implant and graft; F32.9 Major depressive disorder, single episode, unspecified; Z87.01 Personal history of pneumonia (recurrent); I25.2 Old myocardial infarction; H35.30 Unspecified macular degeneration; H91.90 Unspecified hearing loss, unspecified ear; Z79.82 Long term (current) use of aspirin; Z88.5 Allergy status to narcotic agent; H54.8 Legal blindness, as defined in USA
CPT/HCPCS: 36415; 71046; 80048; 81001; 82550; 82962; 83735; 83880; 84484; 85025; 85027; 85610; 86580; 93005; 97161-GP; 99285; A9270-GY; J1815

== ENCOUNTER 2017-12-23 02:25 | Emergency (ER) | payer MEDICARE, BC, MEDICAID ==
[2017-12-23] MEDS ORDERED: Albuterol/Ipratropium 3.0-0.5 MG/3 ML Neb Soln NEB ONE (02:42)
[2017-12-23] MEDS ORDERED: Sulfamethoxazole/Trimethoprim 800-160 MG Tab PO ONE (02:45)
--- NOTE | 2017-12-23 02:47 | EDM.PDOC ---
ED HPI GENERAL MEDICAL PROBLEM - General Stated Complaint: cough Time Seen by Provider: 12/23/17 02:25 Source of Information: Reports: Patient, RN History Limitations: Reports: Physical Impairment - History of Present Illness INITIAL COMMENTS - FREE TEXT/NARRATIVE: 72 y.o.w.f with a h/o COPD was brought from the care home to the ed due to SOB. As per care home, the pulse ox was 87. as the patient arrived here in the ed, her pulse ox was 93% on RA. No C/P. Pt stated she has occ a prod. cough. No F/C/N/V or any other acute medical issues. BP 122/78 RR 16 Pulse 61 O2 sat 93% on RA Temp 36.9 Onset Date: 12/21/17 Onset Time: 07:00 Duration: Chronic, Intermittent Location: Reports: Chest Severity: Mild Improves with: Reports: Medication Worsens with: Reports: Breathing Context: Reports: Other (H/O COPD) Associated Symptoms: Reports: Cough - Related Data Allergies Allergy/AdvReac Type Severity Reaction Status Date / Time hydrocodone Allergy Hallucinati Verified 12/23/17 02:40 ons oxycodone Allergy Hallucinati Verified 12/23/17 02:40 ons Home Meds: Home Meds Aspirin 325 mg PO BEDTIME 08/19/15 [History] FLUoxetine HCl [Fluoxetine HCl] 40 mg PO BEDTIME 08/19/15 [History] Furosemide 40 mg PO BID@08,15 08/19/15 [History] Insulin Isophane NPH, Human [NovoLIN N] 52 units SQ BID 08/19/15 [History] Insulin Regular, Human [NovoLIN R] 20 units SQ TIDMEALS 08/19/15 [History] Lisinopril 5 mg PO WITHDINNER 08/19/15 [History] Simvastatin 40 mg PO PCDINNER 08/19/15 [History] Nitroglycerin [Nitrostat] 0.4 mg SL DAILY PRN 07/10/16 [History] Metolazone 2.5 mg PO WESA@0730 12/03/16 [History] Calcium Citrate/Vitamin D3 [Citracal + D Maximum Caplet] 1 tab PO DAILY [History] Cholecalciferol (Vitamin D3) [Vitamin D3] 2,000 unit PO DAILY 07/13/17 [History] Magnesium 250 mg PO DAILY 07/13/17 [History] Albuterol Sulfate [Proair Hfa] 1 - 2 puff IH Q4H PRN 07/14/17 [History] Polyvinyl Alcohol [Artificial Tears] 1 drop EYEBOTH Q4H PRN 07/14/17 [History] Oxybutynin Chloride [Ditropan Xl] 10 mg PO DAILY 10/29/17 [History] Ranitidine [Zantac] 75 mg PO DAILY PRN 10/29/17 [History] Warfarin [Coumadin] 1.25 mg PO MO 10/29/17 [History] Warfarin [Coumadin] 2.5 mg PO SUTUWETHFRSA 10/29/17 [History] Acetaminophen [Tylenol Extra Strength] 1,000 mg PO TID 11/14/17 [History] Melatonin 3 mg PO WITHDINNER 11/14/17 [History] Carvedilol [Coreg] 6.25 mg PO BID #30 tablet 11/18/17 [Rx] Sulfamethoxazole/Trimethoprim [Bactrim Ds Tablet] 1 each PO BID #20 tablet 12/23 [Rx] Past Medical History HEENT History: Reports: Cataract, Hard of Hearing, Impaired Vision, Other (See Below) Other HEENT History: macular degeneration Cardiovascular History: Reports: Afib, Bypass, High Cholesterol, Hypertension, [place] Other Cardiovascular History: IRREGULAR HEARTBEAT IN PAST. HX OF DIZZYNESS Respiratory History: Reports: Pneumonia, Recurrent Other Respiratory History: Hx rib fracture. Gastrointestinal History: Reports: Cholelithiasis Genitourinary History: Reports: Urinary Incontinence Other Genitourinary History: Hx asymptomatic bacteriuria. 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 History: Reports: Musculoskeletal History: Reports: Other (See Below) Other Musculoskeletal History: walks with walker gait unsteady Neurological History: Reports: Neuropathy, Diabetic, Vertigo Other Neuro History: hx tremors, states is not parkinson's Psychiatric History: Reports: Depression Other Psychiatric History: ON MEDICATION FOR DEPRESSION Endocrine/Metabolic History: Reports: Diabetes, Type II - Infectious Disease History Infectious Disease History: Reports: Chicken Pox, Measles, Shingles - Past Surgical History Cardiovascular Surgical History: Reports: Coronary Artery Bypass, Coronary Artery Stent GI Surgical History: Reports: Appendectomy, Cholecystectomy Musculoskeletal Surgical History: Reports: ORIF Social & Family History - Family History Family Medical History: Noncontributory Endocrine/Metabolic: Reports: Diabetes, type II Oncologic: Reports: Renal - Caffeine Use Caffeine Use: Reports: Soda ED ROS GENERAL - Review of Systems Review Of Systems: Unable To Obtain ED EXAM, GENERAL - Physical Exam Exam: See Below Exam Limited By: Physical Impairment General Appearance: Alert, Mild Distress, Obese Eye Exam: Bilateral Eye: Normal Inspection Ears: Normal External Exam Ear Exam: Bilateral Ear: Auricle Normal Nose: Normal Inspection, Normal Mucosa Throat/Mouth: Normal Lips, Normal Voice, No Airway Compromise Head: Atraumatic, Normocephalic Neck: Normal Inspection, Supple, Non-Tender Respiratory/Chest: Chest Non-Tender, Wheezing, Prolonged Expiration Cardiovascular: Normal Peripheral Pulses, Regular Rate, Rhythm Peripheral Pulses: 1+: Carotid (R) GI/Abdominal: Normal Bowel Sounds, Soft, Non-Tender (Female) Exam: Deferred Rectal (Female) Exam: Deferred Back Exam: Normal Inspection Extremities: Normal Inspection Neurological: Alert, CN II-XII Intact Psychiatric: Normal Affect, Normal Mood Skin Exam: Warm, Dry, Intact, Normal Color, No Rash Lymphatic: No Adenopathy Course - Vital Signs Text/Narrative:: 72 y.o.w.f with a h/o COPD was brought from the care home to the ed due to SOB. As per care home, the pulse ox was 87. as the patient arrived here in the ed, her pulse ox was 93% on RA. No C/P. Pt stated she has occ a prod. cough. No F/C/N/V or any other acute medical issues. BP 122/78 RR 16 Pulse 61 O2 sat 93% on RA Temp 36.9 PE: Obese w f with a prod cough Impression: COPD/asthma, Bronchitis Tx: Duoneb, Florenciaridori DS Reexam: improved Plan: Back to care home Last Recorded V/S: Last Vital Signs Temp 37.2 C 12/23/17 03:20 Pulse 63 12/23/17 03:20 Resp 15 12/23/17 03:20 BP 117/52 L 12/23/17 03:20 Pulse Ox 94 L 12/23/17 03:20 - Orders/Labs/Meds Orders: Active Orders 24 hr Category Date Time Status RT Aerosol Therapy [RC] ASDIRECTED Care 12/23/17 02:43 Active Meds: Medications Discontinued Medications Generic Name Dose Route Start Last Admin Trade Name Freq PRN Reason Stop Dose Admin Albuterol/Ipratropium 3 ml 12/23/17 02:42 12/23/17 02:54 Duoneb 3.0-0.5 Mg/3 Ml NEB 12/23/17 02:43 3 ml ONETIME ONE Administration Trimethoprim/Sulfamethoxazole 1 tab 12/23/17 02:45 12/23/17 02:54 Septra Ds PO 12/23/17 02:46 1 tab ONETIME ONE Administration Departure - Departure Time of Disposition: 03:00 Disposition: Home, Self-Care 01 Condition: Good Clinical Impression: Bronchitis COPD (chronic obstructive pulmonary disease) Qualifiers: COPD type: unspecified COPD Qualified Code(s): J44.9 - Chronic obstructive pulmonary disease, unspecified - Discharge Information Prescriptions: Sulfamethoxazole/Trimethoprim [Bactrim Ds Tablet] 1 each PO BID #20 tablet Instructions: Acute Bronchitis, Adult, [id number] Referrals: Mejia Brooks MD [Primary Care Provider] - Forms: ED Department Discharge Additional Instructions: Please check the INR in 3 days, please give Bactrim DS as recommended, Please give a duoneb ever y 4 hours times 3. Please f/u, come back if your symptoms get worse acutely - My Orders Last 24 Hours: My Active Orders 12/23/17 02:43 RT Aerosol Therapy [RC] ASDIRECTED - Assessment/Plan Last 24 Hours: My Active Orders 12/23/17 02:43 RT Aerosol Therapy [RC] ASDIRECTED
[2017-12-23 03:27] VITALS: BP 117/52
== END 2017-12-23 03:20 | disposition home or self-care (01) ==
LOC: FB.ED 02:25
DX: J44.9 Chronic obstructive pulmonary disease, unspecified (principal); I10 Essential (primary) hypertension; I25.2 Old myocardial infarction; E11.40 Type 2 diabetes mellitus with diabetic neuropathy, unspecified; Z88.5 Allergy status to narcotic agent; Z79.899 Other long term (current) drug therapy
CPT/HCPCS: 94640; 99284; A9270; J7620

== ENCOUNTER 2019-12-08 08:48 | Inpatient (IN) | payer MEDICARE, BC, MEDICAID ==
[2019-12-08] MEDS ORDERED: Zolpidem 5 MG Tab PO PRN (18:18)
[2019-12-08] MEDS ORDERED: Docusate Sodium 100 MG Cap PO PRN (18:18)
[2019-12-08] MEDS ORDERED: Ondansetron 4 MG/2 ML SDV IV PRN (18:18)
[2019-12-08] MEDS ORDERED: Metolazone 2.5 MG Tab PO ONE (18:26)
[2019-12-08] MEDS ORDERED: Furosemide 40 MG/4 ML VIAL IVPUSH ONE (18:26)
[2019-12-08] MEDS ORDERED: Enoxaparin 40 MG/0.4 ML Syringe SUBCUT SCH (20:00)
[2019-12-08] MEDS ORDERED: Albuterol/Ipratropium 3.0-0.5 MG/3 ML Neb Soln INH PRN (21:05)
[2019-12-08] MEDS ORDERED: Nitroglycerin 0.4 MG Tab.SL SL PRN (21:05)
[2019-12-08] MEDS ORDERED: Gabapentin 100 MG Cap PO ONE (22:00)
[2019-12-08] MEDS: FLUoxetine 20 MG Cap PO SCH (22:42)
[2019-12-08] MEDS: Carvedilol 3.125 MG Tab PO SCH (22:42)
[2019-12-08] MEDS: busPIRone 5 MG Tab PO SCH (22:42)
[2019-12-08] MEDS: FLUoxetine 10 MG Cap PO SCH (22:45)
[2019-12-08] MEDS: Acetaminophen 500 MG Tab PO SCH (22:45)
[2019-12-09] MEDS ORDERED: Carboxymethylcellulose Sodium 0.5% Ophth Soln 15 ML Bottle EYEBOTH PRN (08:07)
[2019-12-09] MEDS: INSULIN REGULAR HUMAN 100 UNIT/ML SUBCUT SCH ×3 (08:31→18:30)
[2019-12-09] MEDS ORDERED: OXYBUTYNIN CHLORIDE 10 MG PO SCH (09:00)
[2019-12-09] MEDS ORDERED: Carboxymethylcellulose Sodium 0.5% Ophth Soln 15 ML Bottle EYEBOTH SCH (09:00)
[2019-12-09] MEDS ORDERED: Warfarin Sliding Scale PO SCH (09:00)
[2019-12-09] MEDS ORDERED: acetaZOLAMIDE 250 MG Tab PO SCH (09:00)
[2019-12-09] MEDS: Cholecalciferol (Vitamin D3) 25 MCG Tab PO SCH (09:38)
[2019-12-09] MEDS: Acetaminophen 500 MG Tab PO SCH ×3 (09:39→20:28)
[2019-12-09] MEDS: MAGNESIUM 250 MG PO SCH (09:40)
[2019-12-09] MEDS: Carvedilol 3.125 MG Tab PO SCH ×2 (09:41→20:28)
[2019-12-09] MEDS: busPIRone 5 MG Tab PO SCH ×2 (09:42→20:27)
[2019-12-09] MEDS: Albuterol/Ipratropium 3.0-0.5 MG/3 ML Neb Soln INH SCH (09:43)
[2019-12-09] MEDS: INSULIN ISOPHANE NPH HUMAN SQ SCH ×2 (09:44→18:31)
[2019-12-09] MEDS: Gabapentin 100 MG Cap PO SCH ×2 (09:50→20:31)
--- NOTE | 2019-12-09 10:48 | PCM.HP.2 ---
H&P History of Present Illness - General Date of Service: 12/09/19 Admit Problem/Dx: Admission Diagnosis/Problem Admission Diagnosis/Problem CHF, Congestive heart failure Source of Information: Patient, Provider - History of Present Illness Initial Comments - Free Text/Narative: Brigido is a 74 yr old female from [facility] that has had a 17 pound weight gain since November 23, she had her afternoon Lasix 20 mg dose increased to 40 mg with extra Metolazone given on Sat/Sun with no change in weight. Patient made appt in the walk-in clinic Weds due to increased shortness of breath and the weight gain. Denies any fevers, chills, cough, chest pain. No abdominal pain, nausea, vomiting, diarrhea or constipation. She is incontinent of urine at time. Wheelchair bound. CXR in clinic showed worsening CHF, questionable pneumonia but x-ray was under-inflated. WBC was normal. COVID negative. BNP 2208. Direct admission from clinic arrived after 6 pm. - Related Data Allergies/Adverse Reactions: Allergies Allergy/AdvReac Type Severity Reaction Status Date / Time hydrocodone Allergy Hallucinati Verified 04/16/18 22:34 ons oxycodone Allergy Hallucinati Verified 04/16/18 22:34 ons Home Medications: Home Meds Furosemide 40 mg PO BID@08,12 08/19/15 [History] Insulin Isophane NPH, Human [NovoLIN N] 54 units SQ BIDMEALS 08/19/15 [History] Insulin Regular, Human [NovoLIN R] 18 units SQ TIDMEALS 08/19/15 [History] Simvastatin 40 mg PO BEDTIME 08/19/15 [History] Nitroglycerin [Nitrostat] 0.4 mg SL Q5M PRN 07/10/16 [History] metOLazone [Metolazone] 2.5 mg PO WE@0730 12/03/16 [History] Calcium Citrate/Vitamin D3 [Citracal + D Maximum Caplet] 1 tab PO DAILY 07/13/17 [History] Cholecalciferol (Vitamin D3) [Vitamin D3] 2,000 unit PO DAILY 07/13/17 [History] Magnesium 250 mg PO DAILY 07/13/17 [History] Oxybutynin Chloride [Ditropan Xl] 10 mg PO DAILY 10/29/17 [History] Warfarin [Coumadin] 1.25 mg PO MOWEFR 10/29/17 [History] Warfarin [Coumadin] 2.5 mg PO SUTUTHSA 10/29/17 [History] Acetaminophen [Tylenol Extra Strength] 1,000 mg PO TID 11/14/17 [History] Albuterol/Ipratropium [DuoNeb 3.0-0.5 MG/3 ML] 1 unit INH DAILY 12/08/19 [History] Albuterol/Ipratropium [DuoNeb 3.0-0.5 MG/3 ML] 1 unit INH QID PRN 12/08/19 [History] Gabapentin [Neurontin] 200 mg PO BID 12/08/19 [History] Sennosides/Docusate Sodium [Senna-S 8.6-50 mg Tablet] 1 tab PO DAILY PRN 12/08/19 [History] busPIRone HCl [Buspirone HCl] 5 mg PO BID 12/08/19 [History] carvediloL [Coreg] 3.125 mg PO BID 12/08/19 [History] Aspirin [Halfprin] 81 mg PO BEDTIME 12/09/19 [History] Carbamide Peroxide [Debrox 6.5% Otic Soln] 3 drop EARBOTH DAILY PRN 12/09/19 [History] Carboxymethylcellulose Sodium [Refresh Tears] 1 drop EYEBOTH DAILY 12/09/19 [History] Carboxymethylcellulose Sodium [Refresh Tears] 1 drop EYEBOTH Q2H PRN 12/09/19 [History] FLUoxetine HCl [Fluoxetine HCl] 20 mg PO BEDTIME 12/09/19 [History] FLUoxetine HCl [Prozac] 10 mg PO BEDTIME 12/09/19 [History] lidocaine HCL [Aspercreme Lidocaine] 1 applic TOP BID 12/09/19 [History] lidocaine HCL [Aspercreme Lidocaine] 1 applic TOP BID PRN 12/09/19 [History] lisinopriL [Lisinopril] 5 mg PO WITHDINNER 12/09/19 [History] Past Medical History HEENT History: Reports: Cataract, Hard of Hearing, Impaired Vision, Other (See Below) Other HEENT History: macular degeneration Cardiovascular History: Reports: Afib, Bypass, High Cholesterol, Hypertension, IN Other Cardiovascular History: IRREGULAR HEARTBEAT IN PAST. HX OF DIZZINESS Respiratory History: Reports: Pneumonia, Recurrent Other Respiratory History: Hx rib fracture. Gastrointestinal History: Reports: Cholelithiasis Genitourinary History: Reports: Urinary Incontinence Other Genitourinary History: Hx asymptomatic bacteriuria. CYTOGENETICIST History: Reports: Musculoskeletal History: Reports: Other (See Below) Other Musculoskeletal History: walks with walker gait unsteady Neurological History: Reports: Neuropathy, Diabetic, Vertigo Other Neuro History: hx tremors, states is not parkinson's Psychiatric History: Reports: Depression Other Psychiatric History: ON MEDICATION FOR DEPRESSION Endocrine/Metabolic History: Reports: Diabetes, Type II - Infectious Disease History Infectious Disease History: Reports: Chicken Pox, Measles, Shingles - Past Surgical History Cardiovascular Surgical History: Reports: Coronary Artery Bypass, Coronary Artery Stent GI Surgical History: Reports: Appendectomy, Cholecystectomy Musculoskeletal Surgical History: Reports: ORIF Social & Family History - Family History Family Medical History: Noncontributory Endocrine/Metabolic: Reports: Diabetes, type II Oncologic: Reports: Renal - Tobacco Use Smoking Status *Q: Never Smoker - Caffeine Use Caffeine Use: Reports: None - Recreational Drug Use Recreational Drug Use: No H&P Review of Systems - Review of Systems: Review Of Systems: See Below General: Reports: Weight Gain. Denies: Fever, Chills HEENT: Reports: No Symptoms Pulmonary: Reports: Shortness of Breath. Denies: Cough Cardiovascular: Reports: No Symptoms Gastrointestinal: Reports: No Symptoms Genitourinary: Reports: No Symptoms Musculoskeletal: Reports: No Symptoms Skin: Reports: Rash (groin) Neurological: Reports: No Symptoms Exam - Exam Exam: See Below - Vital Signs Vital Signs: Last Vital Signs Temp 98.1 F 12/09/19 04:00 Pulse 61 12/09/19 09:41 Resp 20 12/09/19 04:00 BP 127/43 L 12/09/19 09:41 Pulse Ox 97 12/09/19 04:00 Weight: 257 lb 4 oz - Exam Quality Assessment: Supplemental Oxygen General: Alert, Oriented, Cooperative HEENT: PERRLA, Conjunctiva Clear Lungs: Clear to Auscultation (BUL), Decreased Breath Sounds (BLL), Crackles (BLL). No: Rhonchi, Wheezing Cardiovascular: Regular Rate, Irregular Rhythm GI/Abdominal Exam: Normal Bowel Sounds, Soft, Non-Tender, No Distention (Female) Exam: Deferred Rectal (Female) Exam: Deferred Extremities: Pedal Edema (2+ BLE to knees) Peripheral Pulses: 2+: Radial (L), Radial (R) Skin: Rash (candidal rash under left pannus, starting under right pannus, tender. Stasis dermatits BLE) Neuro Extensive - Mental Status: Normal Mood/Affect Neuro Extensive - Motor, Sensory, Reflexes: Tremor (L>R, at rest) - Patient Data Lab Results Last 24 hrs: Laboratory Results - last 24 hr 12/08/19 12/08/19 12/09/19 Range/Units 15:45 21:19 06:20 WBC 7.7 (4.5-12.0) X10-3/uL RBC 3.37 (3.23-5.20) x10(6)uL Hgb 11.1 L (11.5-15.5) g/dL Hct 34.3 (30.0-51.3) % MCV 101.5 H (80-96) fL MCH 32.8 (27.7-33.6) pg MCHC 32.3 (32.2-35.4) g/dL RDW 16.6 H (11.5-15.5) % Plt Count 235 (125-369) X10(3)uL MPV 7.8 (7.4-10.4) fL Neut % (Auto) 60.0 (46-82) % Lymph % (Auto) 27.2 (13-37) % [place] % (Auto) 8.4 (4-12) % Eos % (Auto) 3 (1.0-5.0) % Baso % (Auto) 1 (0-2) % Neut # (Auto) 4.7 (1.6-8.3) # Lymph # (Auto) 2.1 (0.6-5.0) # [place] # (Auto) 0.6 (0.0-1.3) # Eos # (Auto) 0.2 (0.0-0.8) # Baso # (Auto) 0.1 (0.0-0.2) # PT 16.7 H (9.0-11.1) sec INR 1.60 H (1.00-1.24) Sodium (135-145) mmol/L Potassium (3.5-5.3) mmol/L Chloride (100-110) mmol/L Carbon Dioxide (21-32) mmol/L BUN (7-18) mg/dL Creatinine (0.55-1.02) mg/dL Est Cr Clr Drug Dosing mL/min Estimated GFR (MDRD) (>60) BUN/Creatinine Ratio (9-20) Glucose (80-116) mg/dL POC Glucose 134 H (80-116) mg/dL Calcium (8.6-10.2) mg/dL 12/09/19 Range/Units 06:20 WBC (4.5-12.0) X10-3/uL RBC (3.23-5.20) x10(6)uL Hgb (11.5-15.5) g/dL Hct (30.0-51.3) % MCV (80-96) fL MCH (27.7-33.6) pg MCHC (32.2-35.4) g/dL RDW (11.5-15.5) % Plt Count (125-369) X10(3)uL MPV (7.4-10.4) fL Neut % (Auto) (46-82) % Lymph % (Auto) (13-37) % [place] % (Auto) (4-12) % Eos % (Auto) (1.0-5.0) % Baso % (Auto) (0-2) % Neut # (Auto) (1.6-8.3) # Lymph # (Auto) (0.6-5.0) # [place] # (Auto) (0.0-1.3) # Eos # (Auto) (0.0-0.8) # Baso # (Auto) (0.0-0.2) # PT (9.0-11.1) sec INR (1.00-1.24) Sodium 138 (135-145) mmol/L Potassium 4.5 (3.5-5.3) mmol/L Chloride 99 L (100-110) mmol/L Carbon Dioxide 38 H (21-32) mmol/L BUN 33 H (7-18) mg/dL Creatinine 1.2 H (0.55-1.02) mg/dL Est Cr Clr Drug Dosing 34.44 mL/min Estimated GFR (MDRD) 44 L (>60) BUN/Creatinine Ratio 27.5 H (9-20) Glucose 124 H (80-116) mg/dL POC Glucose (80-116) mg/dL Calcium 8.8 (8.6-10.2) mg/dL Result Diagrams: 12/09/19 06:20 12/09/19 06:20 Sepsis Event Note - Evaluation Sepsis Screening Result: No Definite Risk - Focused Exam Vital Signs: Vital Signs Temp Pulse Pulse Resp BP BP Pulse Ox 12/09/19 09:41 61 127/43 L 12/09/19 04:00 98.1 F 61 20 130/44 L 97 Date Exam was Performed: 12/09/19 Time Exam was Performed: 10:50 *Q Meaningful Use (ADM) - VTE *Q VTE Mechanical Contraindications *Q: Congestive Heart Failure - VTE Risk Assess *Q Each Risk Factor Represents 1 Point: Swollen Legs, Current, Congestive heart failure (CHF) Total Score 1 Point Risk Factors: 2 Each Risk Factor Represents 3 Points: Age 75 Years or Greater Total Score 3 Point Risk Factors: 3 - Problem List (1) CHF (congestive heart failure) SNOMED Code(s): 44389159 ICD Code: I50.9 - HEART FAILURE, UNSPECIFIED Status: Acute Current Visit: No (2) Afib SNOMED Code(s): 88219720 ICD Code: I48.91 - UNSPECIFIED ATRIAL FIBRILLATION Status: Chronic Current Visit: No Qualifiers: Atrial fibrillation type: unspecified Qualified Code(s): I48.91 - Unspecified atrial fibrillation (3) CAD (coronary artery disease) of artery bypass graft SNOMED Code(s): 938728982, 94952312, 279629064, 320643999, 517653780 ICD Code: I25.810 - ATHEROSCLEROSIS OF CABG W/O ANGINA PECTORIS Status: Chronic Current Visit: No Qualifiers: [place] vs. transplanted heart: [place] heart (4) COPD (chronic obstructive pulmonary disease) SNOMED Code(s): 95930231 ICD Code: J44.9 - CHRONIC OBSTRUCTIVE PULMONARY DISEASE, UNSPECIFIED Status: Chronic Current Visit: No Qualifiers: COPD type: unspecified COPD Qualified Code(s): J44.9 - Chronic obstructive pulmonary disease, unspecified (5) Long-term (current) use of anticoagulants, INR goal 2.0-3.0 SNOMED Code(s): 248379126, 654231728 ICD Code: Z79.01 - USP (CURRENT) USE OF ANTICOAGULANTS Status: Chronic Current Visit: No (6) DM2 (diabetes mellitus, type 2) SNOMED Code(s): 91025738 ICD Code: E11.9 - TYPE 2 DIABETES MELLITUS WITHOUT COMPLICATIONS Status: Chronic Current Visit: No Qualifiers: Diabetes mellitus joint terminal attack controller insulin use: with joint terminal attack controller use Diabetes mellitus complication status: with other specified complication Qualified Code(s): E11.69 - Type 2 diabetes mellitus with other specified complication; Z79.4 - [facility] (current) use of insulin; Z79.4 - [facility] (current) use of insulin; Z79.4 - [facility] (current) use of insulin; Z79.4 - termination clerk (current) use of insulin (7) Essential tremor SNOMED Code(s): 817650873 ICD Code: G25.0 - ESSENTIAL TREMOR Status: Chronic Current Visit: No (8) Incontinence of urine SNOMED Code(s): 086323727 ICD Code: R32 - UNSPECIFIED URINARY INCONTINENCE Status: Chronic Current Visit: No Qualifiers: Urinary Incontinence type: mixed stress and urge incontinence Qualified Code(s): N39.46 - Mixed incontinence (9) Obesity SNOMED Code(s): 482099259, 076290604 ICD Code: E66.9 - OBESITY, UNSPECIFIED Status: Chronic Current Visit: No Qualifiers: Obesity type: due to excess calories Serious obesity comorbidity presence: with serious comorbidity Problem List Initiated/Reviewed/Updated: Yes Orders Last 24hrs: Active Orders 24 hr Category Date Time Status Patient Status [ADT] Routine ADT 12/08/19 18:19 Active Accu Check [Blood Glucose Check, Bedside] [RC] 07,17 Care 12/08/19 21:12 Active Antiembolic Devices [RC] .Routine Care 12/09/19 08:18 Active Height and Weight [RC] 06 Care 12/08/19 18:18 Active Insert Boudreaux Catheter [Insert Urinary Catheter] [OM.PC] Care 12/09/19 09:30 Ordered Q24H Intake and Output [RC] 06,14,22 Care 12/08/19 18:21 Active Pulse Oximetry [RC] Q4HR Care 12/09/19 10:31 Active RT Aerosol Therapy [RC] ASDIRECTED Care 12/08/19 21:09 Active Up With Assistance [RC] ASDIRECTED Care 12/08/19 18:18 Active Urinary Catheter Assessment [RC] QSHIFT Care 12/09/19 09:20 Active VTE/DVT Education [RC] Per Unit Routine Care 12/08/19 18:19 Active Vital Signs [RC] 08,12,16,20,00,04 Care 12/08/19 18:19 Active Heart Healthy Diet [DIET] Diet 12/08/19 Dinner Active BASIC METABOLIC PANEL,BMP [CHEM] Routine Lab 12/09/19 16:00 Ordered BASIC METABOLIC PANEL,BMP [CHEM] Routine Lab 12/10/19 05:00 Ordered INR,PT,PROTHROMBIN TIME [COAG] Routine Lab 12/09/19 08:30 Ordered Acetaminophen [Tylenol Extra Strength] Med 12/08/19 22:00 Active 1,000 mg PO TID Albuterol/Ipratropium [DuoNeb 3.0-0.5 MG/3 ML] Med 12/09/19 09:00 Active 3 ml INH DAILY Albuterol/Ipratropium [DuoNeb 3.0-0.5 MG/3 ML] Med 12/08/19 21:05 Active 3 ml INH QID PRN Calcium Citrate/Vitamin D3 [Citracal + D Maximum Caplet Med 12/09/19 09:00 Active ] 1 tab PO DAILY Carboxymethylcellulose Sodium [Refresh Tears 0.5%] Med 12/09/19 09:00 Active 0 ml EYEBOTH DAILY Carboxymethylcellulose Sodium [Refresh Tears 0.5%] Med 12/09/19 08:07 Active 0 ml EYEBOTH Q2H PRN Cholecalciferol (Vitamin D3) [Vitamin D3] Med 12/09/19 09:00 Active 50 mcg PO DAILY Docusate Sodium [Colace] Med 12/08/19 18:18 Active 100 mg PO BID PRN Docusate Sodium/Sennosides [Senna Plus] Med 12/08/19 21:05 Active 1 tab PO DAILY PRN FLUoxetine [PROzac] Med 12/08/19 22:00 Active 10 mg PO BEDTIME FLUoxetine [PROzac] Med 12/08/19 21:45 Active 20 mg PO BEDTIME Gabapentin [Neurontin] Med 12/09/19 09:00 Active 200 mg PO BID Insulin Isophane NPH, Human [NovoLIN N] Med 12/09/19 09:00 Active 54 units SQ BIDMEALS Insulin Regular, Human [HumuLIN R] Med 12/09/19 08:00 Active 18 unit SUBCUT TIDMEALS Magnesium [Magnesium] Med 12/09/19 09:00 Active 250 mg PO DAILY Nitroglycerin [Nitrostat] Med 12/08/19 21:05 Active 0.4 mg SL DAILY PRN Ondansetron [Zofran] Med 12/08/19 18:18 Active 4 mg IV Q4H PRN Oxybutynin Chloride [Ditropan Xl] Med 12/09/19 09:00 Active 10 mg PO DAILY Simvastatin [Zocor] Med 12/09/19 21:00 Active 40 mg PO BEDTIME Sodium Chloride 0.9% [Saline Flush] Med 12/08/19 18:18 Active 10 ml FLUSH ASDIRECTED PRN Warfarin Sliding Scale [Coumadin Sliding Scale] Med 12/09/19 09:00 Pending 1 each PO DAILY Warfarin [Coumadin] Med 12/09/19 16:00 Once 3.75 mg PO ONETIME ONE Zolpidem [Ambien] Med 12/08/19 18:18 Active 5 mg PO BEDTIME PRN acetaZOLAMIDE [Diamox] Med 12/09/19 09:00 Active 250 mg PO DAILY busPIRone [Buspar] Med 12/08/19 22:00 Active 5 mg PO BID carvediloL [Coreg] Med 12/08/19 22:00 Active 3.125 mg PO BID lisinopriL [Prinivil] Med 12/09/19 18:00 Active 5 mg PO WITHDINNER metOLazone [Zaroxolyn] Med 12/15/19 07:30 Active 2.5 mg PO We@0730 Antiembolic Hose [OM.PC] Routine Oth 12/09/19 08:18 Ordered Saline Lock Insert [OM.PC] Routine Oth 12/08/19 18:18 Ordered Resuscitation Status Routine Resus Stat 12/08/19 18:18 Ordered Medication Orders Acetaminophen (Tylenol Extra Strength) 1,000 mg PO TID [facility] Admin: 12/09/19 09:39 Dose: 1,000 mg Documented by: Admin: 12/08/19 22:45 Dose: 1,000 mg Documented by: ISABELLA Acetazolamide (Diamox) 250 mg PO DAILY [facility] Last Admin: 12/09/19 10:00 Dose: 250 mg Documented by: FRANCOISE Albuterol/Ipratropium (Duoneb 3.0-0.5 Mg/3 Ml) 3 ml INH QID PRN PRN Reason: Wheezing Albuterol/Ipratropium (Duoneb 3.0-0.5 Mg/3 Ml) 3 ml INH DAILY [facility] Last Admin: 12/09/19 09:43 Dose: 3 ml Documented by: FRANCOISE Artificial Tears (Refresh Tears 0.5%) 0 ml EYEBOTH DAILY [facility] Last Admin: 12/09/19 09:42 Dose: 1 drop Documented by: FRANCOISE Artificial Tears (Refresh Tears 0.5%) 0 ml EYEBOTH Q2H PRN PRN Reason: Dry Eyes Buspirone HCl (Buspar) 5 mg PO BID [facility] Last Admin: 12/09/19 09:42 Dose: 5 mg Documented by: Admin: 12/08/19 22:42 Dose: 5 mg Documented by: ISABELLA Carvedilol (Coreg) 3.125 mg PO BID [facility] Last Admin: 12/09/19 09:41 Dose: 3.125 mg Documented by: Admin: 12/08/19 22:42 Dose: 3.125 mg Documented by: ISABELLA Cholecalciferol (Vitamin D3) 50 mcg PO DAILY [facility] Last Admin: 12/09/19 09:38 Dose: 50 mcg Documented by: FRANCOISE Docusate Sodium (Colace) 100 mg PO BID PRN PRN Reason: Constipation Fluoxetine HCl (Prozac) 20 mg PO BEDTIME [facility] Last Admin: 12/08/19 22:42 Dose: 20 mg Documented by: ISABELLA Fluoxetine HCl (Prozac) 10 mg PO BEDTIME [facility] Last Admin: 12/08/19 22:45 Dose: 10 mg Documented by: ISABELLA Gabapentin (Neurontin) 200 mg PO BID [facility] Last Admin: 12/09/19 09:50 Dose: 200 mg Documented by: FRANCOISE Insulin Human Regular (Humulin R) 18 unit SUBCUT TIDMEALS [facility] Last Admin: 12/09/19 08:31 Dose: 18 unit Documented by: FRANCOISE Cosigned by: YOLY Lisinopril (Prinivil) 5 mg PO WITHDINNER [facility] Metolazone (Zaroxolyn) 2.5 mg PO We@0730 [facility] Nitroglycerin (Nitrostat) 0.4 mg SL DAILY PRN PRN Reason: Chest Pain (Calcium Citrate/Vitamin D3 [Citracal + D Maximum Caplet] 1 tab PO DAILY [facility] Last Admin: 12/09/19 09:39 Dose: 1 tab Documented by: FRANCOISE (Insulin Isophane Nph, Human [Novolin N] 54 Units) *Ptom 54 units SQ BIDMEALS [facility] Last Admin: 12/09/19 09:44 Dose: 54 units Documented by: FRANCOISE (Magnesium [ Magnesium] 250 Mg) * Ptom 250 mg PO DAILY [facility] Last Admin: 12/09/19 09:40 Dose: 250 mg Documented by: FRANCOISE (Oxybutynin Chloride [Ditropan Xl] 10 Mg ) *Ptom 10 mg PO DAILY [facility] Last Admin: 12/09/19 09:38 Dose: 10 mg Documented by: FRANCOISE Ondansetron HCl (Zofran) 4 mg IV Q4H PRN PRN Reason: Nausea/Vomiting Senna/Docusate Sodium (Senna Plus) 1 tab PO DAILY PRN PRN Reason: Constipation Simvastatin (Zocor) 40 mg PO BEDTIME [facility] Sodium Chloride (Saline Flush) 10 ml FLUSH ASDIRECTED PRN PRN Reason: Keep Vein Open Warfarin Sodium (Coumadin Sliding Scale) 1 each PO DAILY [facility] Warfarin Sodium (Coumadin) 3.75 mg PO ONETIME ONE Stop: 12/09/19 16:01 Zolpidem Tartrate (Ambien) 5 mg PO BEDTIME PRN PRN Reason: Sleep Assessment/Plan Comment:: 1. Admitted for observation for CHF, weight gain, peripheral edema. 2. Received Lasix 60 mg IV with Metolazone schedule dose last night, weight is down 1 lbs, had 5 voids but missed the hat so do not know exact output. Will have Boudreaux inserted for more accurate I&Os. CO2 is elevated today so will start Acetazolamide 250 mg daily, recheck BMP this afternoon. Repeat labs also in am. 3. Atrial fibrillation, INR subtherapeutic, given Lovenox last night and Pharmacy dosing Coumadin, repeat INR jonathan. Discontinue telemetry, review of strips, persistent atrial flutter, also tremor is affecting monitor. 4. Candidal skin infection: Nystatin powder topical bid to affected area. 5. Heart Healthy diet. 6. Accuchecks qid & ac 7. Daily weights. 8. DNR/DNI per [place] records. 9. Depending on her response to diuresis today, will recheck in am, if she has a suboptimal response will need to be switched to inpatient status and stay over the weekend. - Mortality Measure Prognosis:: Good
[2019-12-09] MEDS: Nystatin Topical Powder 15 GM Bottle TOP SCH ×2 (12:15→20:29)
[2019-12-09] MEDS ORDERED: Warfarin 2.5 MG Tab *PTOM PO ONE (16:00)
[2019-12-09] MEDS: Lisinopril 5 MG Tab PO SCH (18:32)
[2019-12-09] MEDS: FLUoxetine 20 MG Cap PO SCH (20:28)
[2019-12-09] MEDS: FLUoxetine 10 MG Cap PO SCH (20:29)
[2019-12-09] MEDS: Simvastatin 40 MG Tab PO SCH (20:29)
[2019-12-09] MEDS ORDERED: Non-Formulary Medication 1 Each (Fluoxetine Hcl [Fluoxetine Hcl] 40 MG) PO SCH (21:00)
[2019-12-09] MEDS ORDERED: Warfarin 2.5 MG Tab PO SCH (21:05)
[2019-12-10] MEDS ORDERED: [UNRECOGNIZED DRUG - OTHER] SQ SCH (09:00)
[2019-12-10] MEDS ORDERED: INSULIN ISOPHANE SQ SCH (09:00)
[2019-12-10] MEDS: Acetaminophen 500 MG Tab PO SCH ×3 (09:53→20:37)
[2019-12-10] MEDS: Albuterol/Ipratropium 3.0-0.5 MG/3 ML Neb Soln INH SCH (09:53)
[2019-12-10] MEDS: Calcium Carbonate 500 MG Tablet PO SCH (09:54)
[2019-12-10] MEDS: Carvedilol 3.125 MG Tab PO SCH ×2 (09:54→20:35)
[2019-12-10] MEDS: Carboxymethylcellulose Sodium 0.5% Ophth Soln 15 ML Bottle EYEBOTH SCH (09:54)
[2019-12-10] MEDS: Oxybutynin 5 MG Tab.ER PO SCH (09:54)
[2019-12-10] MEDS: busPIRone 5 MG Tab PO SCH ×2 (09:54→20:35)
[2019-12-10] MEDS: Cholecalciferol (Vitamin D3) 25 MCG Tab PO SCH (09:54)
[2019-12-10] MEDS: Torsemide 20 MG Tab PO SCH (09:55)
[2019-12-10] MEDS: Nystatin Topical Powder 15 GM Bottle TOP SCH ×2 (09:55→20:36)
[2019-12-10] MEDS: MAGNESIUM 250 MG PO SCH (09:56)
[2019-12-10] MEDS: Gabapentin 100 MG Cap PO SCH ×2 (09:56→20:32)
[2019-12-10] MEDS ORDERED: Carboxymethylcellulose Sodium 0.5% Ophth Soln 15 ML Bottle EYEBOTH PRN (10:00)
[2019-12-10] MEDS: INSULIN ISOPHANE NPH HUMAN SQ SCH (10:09)
--- NOTE | 2019-12-10 11:03 | PCM.PN ---
- General Info Date of Service: 12/10/19 Admission Dx/Problem (Free Text): Brigido is down 5 pounds from admission, had 2120 ml out yesterday. CO2 didn't change much with acetazolamide yesterday. Has not had BM for 3 days, does have medications ordered as needed. INR is still subtherapeutic. O2 overnight was 96- 97% so will wean and only use if she drops below 90%. She states her shortness of breath is improving, legs are still edematous and tender. Had a low blood sugar overnight at 53, corrected with juice up to 107 then 148 this morning. - Patient Data Vitals - Most Recent: Last Vital Signs Temp 96.9 F 12/10/19 04:00 Pulse 55 L 12/10/19 09:54 Resp 17 12/10/19 04:00 BP 144/89 H 12/10/19 09:54 Pulse Ox 97 12/10/19 04:00 Weight - Most Recent: 253 lb 8 oz I&O - Last 24 Hours: Intake & Output 12/09/19 12/10/19 12/10/19 22:59 06:59 14:59 Intake Total 250 120 Output Total 900 520 Balance -650 -400 Lab Results Last 24 Hours: Laboratory Results - last 24 hr 12/09/19 12/09/19 12/09/19 Range/Units 11:50 16:15 16:15 PT 17.7 H (9.0-11.1) sec INR 1.70 H (1.00-1.24) Sodium 139 (135-145) mmol/L Potassium 4.2 (3.5-5.3) mmol/L Chloride 100 (100-110) mmol/L Carbon Dioxide 38 H (21-32) mmol/L BUN 33 H (7-18) mg/dL Creatinine 1.1 H (0.55-1.02) mg/dL Est Cr Clr Drug Dosing 37.57 mL/min Estimated GFR (MDRD) 48 L (>60) BUN/Creatinine Ratio 30.0 H (9-20) Glucose 103 (80-116) mg/dL POC Glucose 192 H (80-116) mg/dL Calcium 8.8 (8.6-10.2) mg/dL 12/09/19 12/10/19 12/10/19 Range/Units 21:47 02:15 03:23 PT (9.0-11.1) sec INR (1.00-1.24) Sodium (135-145) mmol/L Potassium (3.5-5.3) mmol/L Chloride (100-110) mmol/L Carbon Dioxide (21-32) mmol/L BUN (7-18) mg/dL Creatinine (0.55-1.02) mg/dL Est Cr Clr Drug Dosing mL/min Estimated GFR (MDRD) (>60) BUN/Creatinine Ratio (9-20) Glucose (80-116) mg/dL POC Glucose 107 D 53 L 81 (80-116) mg/dL Calcium (8.6-10.2) mg/dL 12/10/19 12/10/19 12/10/19 Range/Units 05:55 06:15 06:15 PT 16.7 H (9.0-11.1) sec INR 1.60 H (1.00-1.24) Sodium 137 (135-145) mmol/L Potassium 4.7 (3.5-5.3) mmol/L Chloride 100 (100-110) mmol/L Carbon Dioxide 37 H (21-32) mmol/L BUN 34 H (7-18) mg/dL Creatinine 1.2 H (0.55-1.02) mg/dL Est Cr Clr Drug Dosing 34.44 mL/min Estimated GFR (MDRD) 44 L (>60) BUN/Creatinine Ratio 28.3 H (9-20) Glucose 148 H (80-116) mg/dL POC Glucose 145 H (80-116) mg/dL Calcium 8.6 (8.6-10.2) mg/dL Med Orders - Current: Current Medications Acetaminophen (Tylenol Extra Strength) 1,000 mg PO TID [facility] Last Admin: 12/10/19 09:53 Dose: 1,000 mg Documented by: Albuterol/Ipratropium (Duoneb 3.0-0.5 Mg/3 Ml) 3 ml INH QID PRN PRN Reason: Wheezing Albuterol/Ipratropium (Duoneb 3.0-0.5 Mg/3 Ml) 3 ml INH DAILY [facility] Last Admin: 12/10/19 09:53 Dose: 3 ml Documented by: Artificial Tears (Refresh Tears 0.5%) 0 ml EYEBOTH DAILY [facility] Last Admin: 12/10/19 09:54 Dose: 1 drop Documented by: Artificial Tears (Refresh Tears 0.5%) 0 ml EYEBOTH Q2H PRN PRN Reason: Dry Eyes Buspirone HCl (Buspar) 5 mg PO BID [facility] Last Admin: 12/10/19 09:54 Dose: 5 mg Documented by: Calcium Carbonate/Glycine (Oyster Shell Calcium) 500 mg PO DAILY [facility] Last Admin: 12/10/19 09:54 Dose: 500 mg Documented by: Carvedilol (Coreg) 3.125 mg PO BID [facility] Last Admin: 12/10/19 09:54 Dose: 3.125 mg Documented by: Cholecalciferol (Vitamin D3) 50 mcg PO DAILY [facility] Last Admin: 12/10/19 09:54 Dose: 50 mcg Documented by: Docusate Sodium (Colace) 100 mg PO BID PRN PRN Reason: Constipation Fluoxetine HCl (Prozac) 20 mg PO BEDTIME [facility] Last Admin: 12/09/19 20:28 Dose: 20 mg Documented by: Fluoxetine HCl (Prozac) 10 mg PO BEDTIME [facility] Last Admin: 12/09/19 20:29 Dose: 10 mg Documented by: Gabapentin (Neurontin) 200 mg PO BID [facility] Last Admin: 12/10/19 09:56 Dose: 200 mg Documented by: Insulin Glargine (Lantus Solostar) 48 units SUBCUT BID [facility] Insulin Human Lispro (Humalog) 0 unit SUBCUT TIDMEALS [facility]; Protocol Lisinopril (Prinivil) 5 mg PO WITHDINNER [facility] Last Admin: 12/09/19 18:32 Dose: 5 mg Documented by: Metolazone (Zaroxolyn) 2.5 mg PO We@0730 [facility] Nitroglycerin (Nitrostat) 0.4 mg SL DAILY PRN PRN Reason: Chest Pain (Magnesium [ Magnesium] 250 Mg) * Ptom 250 mg PO DAILY [facility] Last Admin: 12/10/19 09:56 Dose: 250 mg Documented by: Nystatin (Nystop) 1 gm TOP BID [facility] Last Admin: 12/10/19 09:55 Dose: 1 applic Documented by: Ondansetron HCl (Zofran) 4 mg IV Q4H PRN PRN Reason: Nausea/Vomiting Oxybutynin Chloride (Oxybutynin Er) 10 mg PO DAILY [facility] Last Admin: 12/10/19 09:54 Dose: 10 mg Documented by: Senna/Docusate Sodium (Senna Plus) 1 tab PO DAILY PRN PRN Reason: Constipation Simvastatin (Zocor) 40 mg PO BEDTIME [facility] Last Admin: 12/09/19 20:29 Dose: 40 mg Documented by: Sodium Chloride (Saline Flush) 10 ml FLUSH ASDIRECTED PRN PRN Reason: Keep Vein Open Torsemide (Demadex) 20 mg PO DAILY [facility] Last Admin: 12/10/19 09:55 Dose: 20 mg Documented by: Warfarin Sodium (Coumadin Sliding Scale) 1 each PO DAILY [facility] Warfarin Sodium (Coumadin) 3.75 mg PO ONETIME ONE Stop: 12/10/19 16:01 Zolpidem Tartrate (Ambien) 5 mg PO BEDTIME PRN PRN Reason: Sleep Discontinued Medications Acetazolamide (Diamox) 250 mg PO DAILY [facility] Last Admin: 12/09/19 10:00 Dose: 250 mg Documented by: Artificial Tears (Refresh Tears 0.5%) 0 ml EYEBOTH DAILY [facility] Last Admin: 12/09/19 09:42 Dose: 1 drop Documented by: Artificial Tears (Refresh Tears 0.5%) 0 ml EYEBOTH Q2H PRN PRN Reason: Dry Eyes Enoxaparin Sodium (Lovenox) 40 mg SUBCUT Q24H [facility] Last Admin: 12/08/19 20:00 Dose: Not Given Documented by: Furosemide (Lasix) 60 mg IVPUSH NOW ONE Stop: 12/08/19 18:27 Last Admin: 12/08/19 19:10 Dose: 60 mg Documented by: Gabapentin (Neurontin) 200 mg PO ONETIME ONE Stop: 12/08/19 22:01 Last Admin: 12/08/19 22:44 Dose: 200 mg Documented by: Insulin Human Regular (Humulin R) 18 unit SUBCUT TIDMEALS [facility] Last Admin: 12/09/19 18:30 Dose: 18 unit Documented by: Metolazone (Zaroxolyn) 2.5 mg PO ONETIME ONE Stop: 12/08/19 18:27 Last Admin: 12/08/19 19:11 Dose: 2.5 mg Documented by: (Calcium Citrate/Vitamin D3 [Citracal + D Maximum Caplet] 1 tab PO DAILY [facility] Last Admin: 12/10/19 10:09 Dose: Not Given Documented by: Non-Formulary Medication (Fluoxetine Hcl [Fluoxetine Hcl]) 40 mg PO BEDTIME [facility] (Insulin Isophane Nph, Human [Novolin N] 54 Units) *Ptom 54 units SQ BIDMEALS [facility] Last Admin: 12/10/19 10:09 Dose: Not Given Documented by: (Oxybutynin Chloride [Ditropan Xl] 10 Mg ) *Ptom 10 mg PO DAILY [facility] Last Admin: 12/09/19 09:38 Dose: 10 mg Documented by: Non-Formulary Medication (Insulin Isophane Nph, Human [Novolin N]) 50 units SQ BIDMEALS [facility] Last Admin: 12/10/19 09:57 Dose: 50 units Documented by: Warfarin Sodium (Coumadin) 3.75 mg PO ONETIME ONE Stop: 12/09/19 16:01 Last Admin: 12/09/19 16:08 Dose: 3.75 mg Documented by: - Exam General: Alert, Oriented, Cooperative, No Acute Distress Lungs: Clear to Auscultation (BUL), Decreased Breath Sounds (BLL), Crackles (bibasilar). No: Rhonchi, Wheezing Cardiovascular: Regular Rate, Irregular Rhythm GI/Abdominal Exam: Normal Bowel Sounds, Soft, Non-Tender, No Distention Extremities: Pedal Edema (2+ up to midthighs) Sepsis Event Note - Evaluation Sepsis Screening Result: No Definite Risk - Focused Exam Vital Signs: Vital Signs Temp Pulse Pulse Resp BP BP Pulse Ox 12/10/19 09:54 55 L 144/89 H 12/10/19 04:00 96.9 F 62 17 117/86 97 12/10/19 00:00 97.1 F 66 19 136/48 L 95 Date Exam was Performed: 12/10/19 Time Exam was Performed: 10:57 - Problem List & Annotations (1) CHF (congestive heart failure) SNOMED Code(s): 04830671 Code(s): I50.9 - HEART FAILURE, UNSPECIFIED Status: Acute Current Visit: No (2) Afib SNOMED Code(s): 97310614 Code(s): I48.91 - UNSPECIFIED ATRIAL FIBRILLATION Status: Chronic Current Visit: No Qualifiers: Atrial fibrillation type: unspecified Qualified Code(s): I48.91 - Unspecified atrial fibrillation (3) CAD (coronary artery disease) of artery bypass graft SNOMED Code(s): 561769034, 08304202, 325439497, 766364084, 626891266 Code(s): I25.810 - ATHEROSCLEROSIS OF CABG W/O ANGINA PECTORIS Status: Chronic Current Visit: No Qualifiers: [place] vs. transplanted heart: [place] heart (4) COPD (chronic obstructive pulmonary disease) SNOMED Code(s): 58512548 Code(s): J44.9 - CHRONIC OBSTRUCTIVE PULMONARY DISEASE, UNSPECIFIED Status: Chronic Current Visit: No Qualifiers: COPD type: unspecified COPD Qualified Code(s): J44.9 - Chronic obstructive pulmonary disease, unspecified (5) Long-term (current) use of anticoagulants, INR goal 2.0-3.0 SNOMED Code(s): 616456174, 275557899 Code(s): Z79.01 - MANAGER DIESEL (CURRENT) USE OF ANTICOAGULANTS Status: Chronic Current Visit: No (6) DM2 (diabetes mellitus, type 2) SNOMED Code(s): 94066798 Code(s): E11.9 - TYPE 2 DIABETES MELLITUS WITHOUT COMPLICATIONS Status: Chronic Current Visit: No Qualifiers: Diabetes mellitus jail insulin use: with intermediate manager use Diabetes mellitus complication status: with other specified complication Qualified Code(s): E11.69 - Type 2 diabetes mellitus with other specified complication; Z79.4 - longterm (current) use of insulin; Z79.4 - intermediate manager (current) use of insulin; Z79.4 - intermediate manager (current) use of insulin; Z79.4 - longterm (current) use of insulin (7) Essential tremor SNOMED Code(s): 165118250 Code(s): G25.0 - ESSENTIAL TREMOR Status: Chronic Current Visit: No (8) Incontinence of urine SNOMED Code(s): 017257456 Code(s): R32 - UNSPECIFIED URINARY INCONTINENCE Status: Chronic Current Visit: No Qualifiers: Urinary Incontinence type: mixed stress and urge incontinence Qualified Code(s): N39.46 - Mixed incontinence (9) Obesity SNOMED Code(s): 598238464, 040202681 Code(s): E66.9 - OBESITY, UNSPECIFIED Status: Chronic Current Visit: No Qualifiers: Obesity type: due to excess calories Serious obesity comorbidity presence: with serious comorbidity - Problem List Review Problem List Initiated/Reviewed/Updated: Yes - My Orders Last 24 Hours: My Active Orders 12/09/19 10:31 Pulse Oximetry [RC] Q4HR 12/09/19 11:15 Nystatin [Nystop] 1 gm TOP BID 12/10/19 08:48 Patient Status [ADT] Routine 12/10/19 09:00 Torsemide [Demadex] 20 mg PO DAILY 12/10/19 09:30 Insert Boudreaux Catheter [Insert Urinary Catheter] [OM.PC] Q24H 12/10/19 12:00 Insulin Lispro [HumaLOG] See Protocol SUBCUT TIDMEALS 12/10/19 16:00 Warfarin [Coumadin] 3.75 mg PO ONETIME ONE 12/10/19 21:00 Insulin Glarg,Human.Rec.Analog [LantUS Solostar] 48 units SUBCUT BID 12/11/19 08:57 INR,PT,PROTHROMBIN TIME [COAG] DAILY 12/12/19 08:57 INR,PT,PROTHROMBIN TIME [COAG] DAILY 12/13/19 08:57 INR,PT,PROTHROMBIN TIME [COAG] DAILY 12/14/19 08:57 INR,PT,PROTHROMBIN TIME [COAG] DAILY - Plan Plan:: 1. Change to inpatient status, will need more time to diuresis. 2. Discontinue Acetazolamide and start Torsemide 20 mg daily, will monitor output and weights and adjust as needed. 3. Atrial fibrillation, INR subtherapeutic, pharmacy to dose Coumadin. 4. Candidal skin infection: Nystatin powder topical bid to affected area. 5. Miralax 17 gm daily, Senna daily prn and Colace bid prn for constipation. 6. Will adjust treatments as necessary.
[2019-12-10] MEDS: Insulin Lispro 100 Unit/ML 3 ML KwikPen SUBCUT SCH ×2 (11:32→17:19)
[2019-12-10] MEDS: Polyethylene Glycol 3350 Powder 17 GM Packet PO SCH (11:32)
[2019-12-10] MEDS: Sodium Chloride 0.9% 10 ML Syringe FLUSH PRN (14:14)
[2019-12-10] MEDS ORDERED: Warfarin 2.5 MG Tab *PTOM PO SCH (16:00)
[2019-12-10] MEDS ORDERED: Warfarin 2.5 MG Tab PO ONE (16:00)
[2019-12-10] MEDS: Lisinopril 5 MG Tab PO SCH (16:59)
[2019-12-10] MEDS: FLUoxetine 20 MG Cap PO SCH (20:38)
[2019-12-10] MEDS: FLUoxetine 10 MG Cap PO SCH (20:38)
[2019-12-10] MEDS: Simvastatin 40 MG Tab PO SCH (20:39)
[2019-12-10] MEDS: Insulin Glargine,Human Rec. Analog 100 Units/ML 3 ML Pen SUBCUT SCH (20:43)
[2019-12-11] MEDS: Insulin Lispro 100 Unit/ML 3 ML KwikPen SUBCUT SCH ×3 (07:18→17:18)
[2019-12-11] MEDS: Torsemide 20 MG Tab PO SCH ×3 (08:15→13:32)
[2019-12-11] MEDS: Carboxymethylcellulose Sodium 0.5% Ophth Soln 15 ML Bottle EYEBOTH SCH (08:15)
[2019-12-11] MEDS: Acetaminophen 500 MG Tab PO SCH ×3 (08:15→21:22)
[2019-12-11] MEDS: Cholecalciferol (Vitamin D3) 25 MCG Tab PO SCH (08:15)
[2019-12-11] MEDS: Calcium Carbonate 500 MG Tablet PO SCH (08:16)
[2019-12-11] MEDS: Nystatin Topical Powder 15 GM Bottle TOP SCH ×2 (08:16→21:20)
[2019-12-11] MEDS: Polyethylene Glycol 3350 Powder 17 GM Packet PO SCH (08:16)
[2019-12-11] MEDS: Albuterol/Ipratropium 3.0-0.5 MG/3 ML Neb Soln INH SCH (08:16)
[2019-12-11] MEDS: Insulin Glargine,Human Rec. Analog 100 Units/ML 3 ML Pen SUBCUT SCH ×2 (08:16→21:26)
[2019-12-11] MEDS: MAGNESIUM 250 MG PO SCH (08:16)
[2019-12-11] MEDS: Carvedilol 3.125 MG Tab PO SCH ×2 (08:16→21:24)
[2019-12-11] MEDS: Oxybutynin 5 MG Tab.ER PO SCH (08:16)
[2019-12-11] MEDS: busPIRone 5 MG Tab PO SCH ×2 (08:16→21:22)
[2019-12-11] MEDS: Gabapentin 100 MG Cap PO SCH ×2 (08:23→21:24)
--- NOTE | 2019-12-11 10:53 | PCM.PN ---
- General Info Date of Service: 12/11/19 Admission Dx/Problem (Free Text): Tried to wean off oxygen as she was 97% on 1L, but dropped below 90%. Weight is up 254. Had 1930 out yesterday. CO2 improved today. No complaints. Legs are still edematous. - Patient Data Vitals - Most Recent: Last Vital Signs Temp 98.1 F 12/11/19 02:30 Pulse 75 12/11/19 08:16 Resp 20 12/11/19 02:30 BP 135/40 L 12/11/19 08:16 Pulse Ox 98 12/11/19 02:30 Weight - Most Recent: 254 lb 9.6 oz I&O - Last 24 Hours: Intake & Output 12/10/19 12/11/19 12/11/19 22:59 06:59 14:59 Output Total 980 575 Balance -980 -575 Lab Results Last 24 Hours: Laboratory Results - last 24 hr 12/10/19 12/10/19 12/10/19 Range/Units 11:26 17:03 20:27 PT (9.0-11.1) sec INR (1.00-1.24) Sodium (135-145) mmol/L Potassium (3.5-5.3) mmol/L Chloride (100-110) mmol/L Carbon Dioxide (21-32) mmol/L BUN (7-18) mg/dL Creatinine (0.55-1.02) mg/dL Est Cr Clr Drug Dosing mL/min Estimated GFR (MDRD) (>60) BUN/Creatinine Ratio (9-20) Glucose (80-116) mg/dL POC Glucose 175 H 179 H 228 H (80-116) mg/dL Calcium (8.6-10.2) mg/dL 12/11/19 12/11/19 Range/Units 06:10 06:10 PT 17.6 H (9.0-11.1) sec INR 1.69 H (1.00-1.24) Sodium 139 (135-145) mmol/L Potassium 4.1 (3.5-5.3) mmol/L Chloride 100 (100-110) mmol/L Carbon Dioxide 35 H (21-32) mmol/L BUN 35 H (7-18) mg/dL Creatinine 1.1 H (0.55-1.02) mg/dL Est Cr Clr Drug Dosing 37.57 mL/min Estimated GFR (MDRD) 48 L (>60) BUN/Creatinine Ratio 31.8 H (9-20) Glucose 131 H (80-116) mg/dL POC Glucose (80-116) mg/dL Calcium 8.8 (8.6-10.2) mg/dL Med Orders - Current: Current Medications Acetaminophen (Tylenol Extra Strength) 1,000 mg PO TID [facility] Last Admin: 12/11/19 08:15 Dose: 1,000 mg Documented by: Albuterol/Ipratropium (Duoneb 3.0-0.5 Mg/3 Ml) 3 ml INH QID PRN PRN Reason: Wheezing Albuterol/Ipratropium (Duoneb 3.0-0.5 Mg/3 Ml) 3 ml INH DAILY [facility] Last Admin: 12/11/19 08:16 Dose: 3 ml Documented by: Artificial Tears (Refresh Tears 0.5%) 0 ml EYEBOTH DAILY [facility] Last Admin: 12/11/19 08:15 Dose: 1 drop Documented by: Artificial Tears (Refresh Tears 0.5%) 0 ml EYEBOTH Q2H PRN PRN Reason: Dry Eyes Buspirone HCl (Buspar) 5 mg PO BID [facility] Last Admin: 12/11/19 08:16 Dose: 5 mg Documented by: Calcium Carbonate/Glycine (Oyster Shell Calcium) 500 mg PO DAILY [facility] Last Admin: 12/11/19 08:16 Dose: 500 mg Documented by: Carvedilol (Coreg) 3.125 mg PO BID [facility] Last Admin: 12/11/19 08:16 Dose: 3.125 mg Documented by: Cholecalciferol (Vitamin D3) 50 mcg PO DAILY [facility] Last Admin: 12/11/19 08:15 Dose: 50 mcg Documented by: Docusate Sodium (Colace) 100 mg PO BID PRN PRN Reason: Constipation Fluoxetine HCl (Prozac) 20 mg PO BEDTIME [facility] Last Admin: 12/10/19 20:38 Dose: 20 mg Documented by: Fluoxetine HCl (Prozac) 10 mg PO BEDTIME [facility] Last Admin: 12/10/19 20:38 Dose: 10 mg Documented by: Gabapentin (Neurontin) 200 mg PO BID [facility] Last Admin: 12/11/19 08:23 Dose: 200 mg Documented by: Insulin Glargine (Lantus Solostar) 48 units SUBCUT BID [facility] Last Admin: 12/11/19 08:16 Dose: 48 units Documented by: Insulin Human Lispro (Humalog) 0 unit SUBCUT TIDMEALS [facility]; Protocol Last Admin: 12/11/19 07:18 Dose: Not Given Documented by: Lisinopril (Prinivil) 5 mg PO WITHDINNER [facility] Last Admin: 12/10/19 16:59 Dose: 5 mg Documented by: Metolazone (Zaroxolyn) 2.5 mg PO We@0730 [facility] Nitroglycerin (Nitrostat) 0.4 mg SL DAILY PRN PRN Reason: Chest Pain (Magnesium [ Magnesium] 250 Mg) * Ptom 250 mg PO DAILY [facility] Last Admin: 12/11/19 08:16 Dose: 250 mg Documented by: Nystatin (Nystop) 1 gm TOP BID [facility] Last Admin: 12/11/19 08:16 Dose: 1 applic Documented by: Ondansetron HCl (Zofran) 4 mg IV Q4H PRN PRN Reason: Nausea/Vomiting Oxybutynin Chloride (Oxybutynin Er) 10 mg PO DAILY [facility] Last Admin: 12/11/19 08:16 Dose: 10 mg Documented by: Polyethylene Glycol (Miralax) 17 gm PO DAILY [facility] Last Admin: 12/11/19 08:16 Dose: 17 gm Documented by: Senna/Docusate Sodium (Senna Plus) 1 tab PO DAILY PRN PRN Reason: Constipation Simvastatin (Zocor) 40 mg PO BEDTIME [facility] Last Admin: 12/10/19 20:39 Dose: 40 mg Documented by: Sodium Chloride (Saline Flush) 10 ml FLUSH ASDIRECTED PRN PRN Reason: Keep Vein Open Last Admin: 12/10/19 14:14 Dose: 10 ml Documented by: Torsemide (Demadex) 20 mg PO BIDDIURETIC [facility] Last Admin: 12/11/19 09:55 Dose: Not Given Documented by: Warfarin Sodium (Coumadin Sliding Scale) 1 each PO DAILY [facility] Warfarin Sodium (Coumadin) 4 mg PO ONETIME ONE Stop: 12/11/19 16:01 Zolpidem Tartrate (Ambien) 5 mg PO BEDTIME PRN PRN Reason: Sleep Discontinued Medications Acetazolamide (Diamox) 250 mg PO DAILY [facility] Last Admin: 12/09/19 10:00 Dose: 250 mg Documented by: Artificial Tears (Refresh Tears 0.5%) 0 ml EYEBOTH DAILY [facility] Last Admin: 12/09/19 09:42 Dose: 1 drop Documented by: Artificial Tears (Refresh Tears 0.5%) 0 ml EYEBOTH Q2H PRN PRN Reason: Dry Eyes Enoxaparin Sodium (Lovenox) 40 mg SUBCUT Q24H [facility] Last Admin: 12/08/19 20:00 Dose: Not Given Documented by: Furosemide (Lasix) 60 mg IVPUSH NOW ONE Stop: 12/08/19 18:27 Last Admin: 12/08/19 19:10 Dose: 60 mg Documented by: Gabapentin (Neurontin) 200 mg PO ONETIME ONE Stop: 12/08/19 22:01 Last Admin: 12/08/19 22:44 Dose: 200 mg Documented by: Insulin Human Regular (Humulin R) 18 unit SUBCUT TIDMEALS [facility] Last Admin: 12/09/19 18:30 Dose: 18 unit Documented by: Metolazone (Zaroxolyn) 2.5 mg PO ONETIME ONE Stop: 12/08/19 18:27 Last Admin: 12/08/19 19:11 Dose: 2.5 mg Documented by: (Calcium Citrate/Vitamin D3 [Citracal + D Maximum Caplet] 1 tab PO DAILY [facility] Last Admin: 12/10/19 10:09 Dose: Not Given Documented by: Non-Formulary Medication (Fluoxetine Hcl [Fluoxetine Hcl]) 40 mg PO BEDTIME [facility] (Insulin Isophane Nph, Human [Novolin N] 54 Units) *Ptom 54 units SQ BIDMEALS [facility] Last Admin: 12/10/19 10:09 Dose: Not Given Documented by: (Oxybutynin Chloride [Ditropan Xl] 10 Mg ) *Ptom 10 mg PO DAILY [facility] Last Admin: 12/09/19 09:38 Dose: 10 mg Documented by: Non-Formulary Medication (Insulin Isophane Nph, Human [Novolin N]) 50 units SQ BIDMEALS [facility] Last Admin: 12/10/19 09:57 Dose: 50 units Documented by: Torsemide (Demadex) 20 mg PO DAILY [facility] Last Admin: 12/11/19 08:15 Dose: 20 mg Documented by: Warfarin Sodium (Coumadin) 3.75 mg PO ONETIME ONE Stop: 12/09/19 16:01 Last Admin: 12/09/19 16:08 Dose: 3.75 mg Documented by: Warfarin Sodium (Coumadin) 3.75 mg PO ONETIME ONE Stop: 12/10/19 16:01 Last Admin: 12/10/19 16:58 Dose: 3.75 mg Documented by: - Exam Quality Assessment: Supplemental Oxygen General: Alert, Oriented, Cooperative, No Acute Distress Lungs: Clear to Auscultation, Decreased Breath Sounds (Bibasilar), Crackles (bibasilar) Cardiovascular: Regular Rate, Irregular Rhythm GI/Abdominal Exam: Normal Bowel Sounds, Soft, Non-Tender, No Distention Extremities: Pedal Edema (2+ to bilateral midthighs) Sepsis Event Note - Evaluation Sepsis Screening Result: No Definite Risk - Focused Exam Vital Signs: Vital Signs Temp Pulse Pulse Resp BP BP Pulse Ox 12/11/19 08:16 75 135/40 L 12/11/19 02:30 98.1 F 61 20 124/51 L 98 Pulse Ox 12/11/19 08:16 12/11/19 02:30 98 Date Exam was Performed: 12/11/19 Time Exam was Performed: 10:50 - Problem List & Annotations (1) CHF (congestive heart failure) SNOMED Code(s): 91310863 Code(s): I50.9 - HEART FAILURE, UNSPECIFIED Status: Acute Current Visit: No (2) Afib SNOMED Code(s): 22928771 Code(s): I48.91 - UNSPECIFIED ATRIAL FIBRILLATION Status: Chronic Current Visit: No Qualifiers: Atrial fibrillation type: unspecified Qualified Code(s): I48.91 - Unspecified atrial fibrillation (3) CAD (coronary artery disease) of artery bypass graft SNOMED Code(s): 161113203, 95817593, 973107391, 652200520, 858463831 Code(s): I25.810 - ATHEROSCLEROSIS OF CABG W/O ANGINA PECTORIS Status: Chronic Current Visit: No Qualifiers: [place] vs. transplanted heart: [place] heart (4) COPD (chronic obstructive pulmonary disease) SNOMED Code(s): 94577798 Code(s): J44.9 - CHRONIC OBSTRUCTIVE PULMONARY DISEASE, UNSPECIFIED Status: Chronic Current Visit: No Qualifiers: COPD type: unspecified COPD Qualified Code(s): J44.9 - Chronic obstructive pulmonary disease, unspecified (5) Long-term (current) use of anticoagulants, INR goal 2.0-3.0 SNOMED Code(s): 398011494, 797642737 Code(s): Z79.01 - FPC (CURRENT) USE OF ANTICOAGULANTS Status: Chronic Current Visit: No (6) DM2 (diabetes mellitus, type 2) SNOMED Code(s): 03484427 Code(s): E11.9 - TYPE 2 DIABETES MELLITUS WITHOUT COMPLICATIONS Status: Chronic Current Visit: No Qualifiers: Diabetes mellitus circus rider insulin use: with snf use Diabetes mellitus complication status: with other specified complication Qualified Code(s): E11.69 - Type 2 diabetes mellitus with other specified complication; Z79.4 - penitentiary (current) use of insulin; Z79.4 - secretarial teacher (current) use of insulin; Z79.4 - secretarial teacher (current) use of insulin; Z79.4 - penitentiary (current) use of insulin (7) Essential tremor SNOMED Code(s): 796613371 Code(s): G25.0 - ESSENTIAL TREMOR Status: Chronic Current Visit: No (8) Incontinence of urine SNOMED Code(s): 255702908 Code(s): R32 - UNSPECIFIED URINARY INCONTINENCE Status: Chronic Current Visit: No Qualifiers: Urinary Incontinence type: mixed stress and urge incontinence Qualified Code(s): N39.46 - Mixed incontinence (9) Obesity SNOMED Code(s): 209608501, 323294957 Code(s): E66.9 - OBESITY, UNSPECIFIED Status: Chronic Current Visit: No Qualifiers: Obesity type: due to excess calories Serious obesity comorbidity presence: with serious comorbidity - Problem List Review Problem List Initiated/Reviewed/Updated: Yes - My Orders Last 24 Hours: My Active Orders 12/10/19 11:15 polyethylene glycoL 3350 [MiraLAX] 17 gm PO DAILY 12/10/19 12:00 Insulin Lispro [HumaLOG] See Protocol SUBCUT TIDMEALS 12/10/19 21:00 Insulin Glarg,Human.Rec.Analog [LantUS Solostar] 48 units SUBCUT BID 12/11/19 09:15 Torsemide [Demadex] 20 mg PO BIDDIURETIC 12/11/19 09:30 Insert Boudreaux Catheter [Insert Urinary Catheter] [OM.PC] Q24H 12/11/19 16:00 Warfarin [Coumadin] 4 mg PO ONETIME ONE 12/12/19 05:00 BASIC METABOLIC PANEL,BMP [CHEM] Routine 12/12/19 08:57 INR,PT,PROTHROMBIN TIME [COAG] DAILY 12/13/19 08:57 INR,PT,PROTHROMBIN TIME [COAG] DAILY 12/14/19 08:57 INR,PT,PROTHROMBIN TIME [COAG] DAILY - Plan Plan:: 1. Change to Torsemide 20 mg bid, will monitor output and weights and adjust as needed. 2. Atrial fibrillation, INR 1.69, subtherapeutic, pharmacy to dose Coumadin. 3. Candidal skin infection: Nystatin powder topical bid to affected area. 4. Miralax 17 gm daily, Senna daily prn and Colace bid prn for constipation. 5. Cr improved to 1.1, potassium stable.
[2019-12-11] MEDS ORDERED: Warfarin 4 MG Tab PO ONE (16:00)
[2019-12-11] MEDS: Lisinopril 5 MG Tab PO SCH (17:19)
[2019-12-11] MEDS: FLUoxetine 20 MG Cap PO SCH (21:24)
[2019-12-11] MEDS: Simvastatin 40 MG Tab PO SCH (21:25)
[2019-12-11] MEDS: FLUoxetine 10 MG Cap PO SCH (21:25)
[2019-12-12] MEDS: Insulin Lispro 100 Unit/ML 3 ML KwikPen SUBCUT SCH ×3 (08:14→17:20)
[2019-12-12] MEDS: Carboxymethylcellulose Sodium 0.5% Ophth Soln 15 ML Bottle EYEBOTH SCH (08:14)
[2019-12-12] MEDS: Insulin Glargine,Human Rec. Analog 100 Units/ML 3 ML Pen SUBCUT SCH ×2 (08:14→21:17)
[2019-12-12] MEDS: Oxybutynin 5 MG Tab.ER PO SCH (08:15)
[2019-12-12] MEDS: MAGNESIUM 250 MG PO SCH (08:15)
[2019-12-12] MEDS: Sodium Chloride 0.9% 10 ML Syringe FLUSH PRN (08:15)
[2019-12-12] MEDS: Polyethylene Glycol 3350 Powder 17 GM Packet PO SCH (08:15)
[2019-12-12] MEDS: Acetaminophen 500 MG Tab PO SCH ×3 (08:15→21:23)
[2019-12-12] MEDS: Calcium Carbonate 500 MG Tablet PO SCH (08:15)
[2019-12-12] MEDS: Nystatin Topical Powder 15 GM Bottle TOP SCH ×2 (08:15→21:22)
[2019-12-12] MEDS: Torsemide 20 MG Tab PO SCH (08:16)
[2019-12-12] MEDS: busPIRone 5 MG Tab PO SCH ×2 (08:16→21:24)
[2019-12-12] MEDS: Cholecalciferol (Vitamin D3) 25 MCG Tab PO SCH (08:16)
[2019-12-12] MEDS: Carvedilol 3.125 MG Tab PO SCH ×2 (08:16→21:28)
[2019-12-12] MEDS: Albuterol/Ipratropium 3.0-0.5 MG/3 ML Neb Soln INH SCH (08:16)
[2019-12-12] MEDS: Gabapentin 100 MG Cap PO SCH ×2 (08:19→21:23)
--- NOTE | 2019-12-12 11:05 | PCM.PN ---
- General Info Date of Service: 12/12/19 Admission Dx/Problem (Free Text): Brigido's weight is down to 252, down from 261 prior to admission. She had 3550 ml out yesterday, Cr bumped a little bit. Denies any pain, breathing better, legs don't feel as tight. Functional Status: Reports: Urinating - Patient Data Vitals - Most Recent: Last Vital Signs Temp 97.5 F 12/12/19 07:45 Pulse 60 12/12/19 08:16 Resp 18 12/12/19 07:45 BP 133/43 L 12/12/19 08:16 Pulse Ox 96 12/12/19 07:45 Weight - Most Recent: 252 lb I&O - Last 24 Hours: Intake & Output 12/11/19 12/12/19 12/12/19 22:59 06:59 14:59 Intake Total 200 240 Output Total 1500 725 Balance -1300 -725 240 Lab Results Last 24 Hours: Laboratory Results - last 24 hr 12/11/19 12/11/19 12/11/19 Range/Units 11:10 17:06 21:17 PT (9.0-11.1) sec INR (1.00-1.24) Sodium (135-145) mmol/L Potassium (3.5-5.3) mmol/L Chloride (100-110) mmol/L Carbon Dioxide (21-32) mmol/L BUN (7-18) mg/dL Creatinine (0.55-1.02) mg/dL Est Cr Clr Drug Dosing mL/min Estimated GFR (MDRD) (>60) BUN/Creatinine Ratio (9-20) Glucose (80-116) mg/dL POC Glucose 219 H 206 H 234 H (80-116) mg/dL Calcium (8.6-10.2) mg/dL 12/12/19 12/12/19 Range/Units 06:30 06:30 PT 20.9 H (9.0-11.1) sec INR 2.03 H (1.00-1.24) Sodium 140 (135-145) mmol/L Potassium 4.2 (3.5-5.3) mmol/L Chloride 100 (100-110) mmol/L Carbon Dioxide 36 H (21-32) mmol/L BUN 37 H (7-18) mg/dL Creatinine 1.3 H (0.55-1.02) mg/dL Est Cr Clr Drug Dosing 31.79 mL/min Estimated GFR (MDRD) 40 L (>60) BUN/Creatinine Ratio 28.5 H (9-20) Glucose 155 H (80-116) mg/dL POC Glucose (80-116) mg/dL Calcium 8.8 (8.6-10.2) mg/dL Med Orders - Current: Current Medications Acetaminophen (Tylenol Extra Strength) 1,000 mg PO TID [facility] Last Admin: 12/12/19 08:15 Dose: 1,000 mg Documented by: Albuterol/Ipratropium (Duoneb 3.0-0.5 Mg/3 Ml) 3 ml INH QID PRN PRN Reason: Wheezing Albuterol/Ipratropium (Duoneb 3.0-0.5 Mg/3 Ml) 3 ml INH DAILY [facility] Last Admin: 12/12/19 08:16 Dose: 3 ml Documented by: Artificial Tears (Refresh Tears 0.5%) 0 ml EYEBOTH DAILY [facility] Last Admin: 12/12/19 08:14 Dose: 1 drop Documented by: Artificial Tears (Refresh Tears 0.5%) 0 ml EYEBOTH Q2H PRN PRN Reason: Dry Eyes Buspirone HCl (Buspar) 5 mg PO BID [facility] Last Admin: 12/12/19 08:16 Dose: 5 mg Documented by: Calcium Carbonate/Glycine (Oyster Shell Calcium) 500 mg PO DAILY [facility] Last Admin: 12/12/19 08:15 Dose: 500 mg Documented by: Carvedilol (Coreg) 3.125 mg PO BID [facility] Last Admin: 12/12/19 08:16 Dose: 3.125 mg Documented by: Cholecalciferol (Vitamin D3) 50 mcg PO DAILY [facility] Last Admin: 12/12/19 08:16 Dose: 50 mcg Documented by: Docusate Sodium (Colace) 100 mg PO BID PRN PRN Reason: Constipation Last Admin: 12/12/19 08:19 Dose: 100 mg Documented by: Fluoxetine HCl (Prozac) 20 mg PO BEDTIME [facility] Last Admin: 12/11/19 21:24 Dose: 20 mg Documented by: Fluoxetine HCl (Prozac) 10 mg PO BEDTIME [facility] Last Admin: 12/11/19 21:25 Dose: 10 mg Documented by: Gabapentin (Neurontin) 200 mg PO BID [facility] Last Admin: 12/12/19 08:19 Dose: 200 mg Documented by: Insulin Glargine (Lantus Solostar) 48 units SUBCUT BID [facility] Last Admin: 12/12/19 08:14 Dose: 48 units Documented by: Insulin Human Lispro (Humalog) 0 unit SUBCUT TIDMEALS [facility]; Protocol Last Admin: 12/12/19 08:14 Dose: 2 unit Documented by: Lisinopril (Prinivil) 5 mg PO WITHDINNER [facility] Last Admin: 12/11/19 17:19 Dose: 5 mg Documented by: Metolazone (Zaroxolyn) 2.5 mg PO We@0730 [facility] Nitroglycerin (Nitrostat) 0.4 mg SL DAILY PRN PRN Reason: Chest Pain (Magnesium [ Magnesium] 250 Mg) * Ptom 250 mg PO DAILY [facility] Last Admin: 12/12/19 08:15 Dose: 250 mg Documented by: Nystatin (Nystop) 1 gm TOP BID [facility] Last Admin: 12/12/19 08:15 Dose: 1 applic Documented by: Ondansetron HCl (Zofran) 4 mg IV Q4H PRN PRN Reason: Nausea/Vomiting Oxybutynin Chloride (Oxybutynin Er) 10 mg PO DAILY [facility] Last Admin: 12/12/19 08:15 Dose: 10 mg Documented by: Polyethylene Glycol (Miralax) 17 gm PO DAILY [facility] Last Admin: 12/12/19 08:15 Dose: 17 gm Documented by: Senna/Docusate Sodium (Senna Plus) 1 tab PO DAILY PRN PRN Reason: Constipation Simvastatin (Zocor) 40 mg PO BEDTIME [facility] Last Admin: 12/11/19 21:25 Dose: 40 mg Documented by: Sodium Chloride (Saline Flush) 10 ml FLUSH ASDIRECTED PRN PRN Reason: Keep Vein Open Last Admin: 12/12/19 08:15 Dose: 10 ml Documented by: Torsemide (Demadex) 20 mg PO DAILY [facility] Warfarin Sodium (Coumadin Sliding Scale) 1 each PO DAILY [facility] Warfarin Sodium (Coumadin) 4 mg PO ONETIME ONE Stop: 12/12/19 16:01 Zolpidem Tartrate (Ambien) 5 mg PO BEDTIME PRN PRN Reason: Sleep Discontinued Medications Acetazolamide (Diamox) 250 mg PO DAILY [facility] Last Admin: 12/09/19 10:00 Dose: 250 mg Documented by: Artificial Tears (Refresh Tears 0.5%) 0 ml EYEBOTH DAILY [facility] Last Admin: 12/09/19 09:42 Dose: 1 drop Documented by: Artificial Tears (Refresh Tears 0.5%) 0 ml EYEBOTH Q2H PRN PRN Reason: Dry Eyes Enoxaparin Sodium (Lovenox) 40 mg SUBCUT Q24H [facility] Last Admin: 12/08/19 20:00 Dose: Not Given Documented by: Furosemide (Lasix) 60 mg IVPUSH NOW ONE Stop: 12/08/19 18:27 Last Admin: 12/08/19 19:10 Dose: 60 mg Documented by: Gabapentin (Neurontin) 200 mg PO ONETIME ONE Stop: 12/08/19 22:01 Last Admin: 12/08/19 22:44 Dose: 200 mg Documented by: Insulin Human Regular (Humulin R) 18 unit SUBCUT TIDMEALS [facility] Last Admin: 12/09/19 18:30 Dose: 18 unit Documented by: Metolazone (Zaroxolyn) 2.5 mg PO ONETIME ONE Stop: 12/08/19 18:27 Last Admin: 12/08/19 19:11 Dose: 2.5 mg Documented by: (Calcium Citrate/Vitamin D3 [Citracal + D Maximum Caplet] 1 tab PO DAILY [facility] Last Admin: 12/10/19 10:09 Dose: Not Given Documented by: Non-Formulary Medication (Fluoxetine Hcl [Fluoxetine Hcl]) 40 mg PO BEDTIME [facility] (Insulin Isophane Nph, Human [Novolin N] 54 Units) *Ptom 54 units SQ BIDMEALS [facility] Last Admin: 12/10/19 10:09 Dose: Not Given Documented by: (Oxybutynin Chloride [Ditropan Xl] 10 Mg ) *Ptom 10 mg PO DAILY [facility] Last Admin: 12/09/19 09:38 Dose: 10 mg Documented by: Non-Formulary Medication (Insulin Isophane Nph, Human [Novolin N]) 50 units SQ BIDMEALS [facility] Last Admin: 12/10/19 09:57 Dose: 50 units Documented by: Torsemide (Demadex) 20 mg PO DAILY [facility] Last Admin: 12/11/19 08:15 Dose: 20 mg Documented by: Torsemide (Demadex) 20 mg PO BIDDIURETIC WON Last Admin: 12/12/19 08:16 Dose: 20 mg Documented by: Warfarin Sodium (Coumadin) 3.75 mg PO ONETIME ONE Stop: 12/09/19 16:01 Last Admin: 12/09/19 16:08 Dose: 3.75 mg Documented by: Warfarin Sodium (Coumadin) 3.75 mg PO ONETIME ONE Stop: 12/10/19 16:01 Last Admin: 12/10/19 16:58 Dose: 3.75 mg Documented by: Warfarin Sodium (Coumadin) 4 mg PO ONETIME ONE Stop: 12/11/19 16:01 Last Admin: 12/11/19 16:08 Dose: 4 mg Documented by: - Exam Quality Assessment: Supplemental Oxygen General: Alert, Oriented, Cooperative, No Acute Distress Lungs: Clear to Auscultation, Normal Respiratory Effort, Crackles (fine, bibasilar) Cardiovascular: Regular Rate, Irregular Rhythm GI/Abdominal Exam: Normal Bowel Sounds, Soft, Non-Tender, No Distention Extremities: Pedal Edema (1+ bilateral knees, trace in bilateral thighs.) Sepsis Event Note - Evaluation Sepsis Screening Result: No Definite Risk - Focused Exam Vital Signs: Vital Signs Temp Pulse Pulse Resp BP BP BP 12/12/19 08:16 60 133/43 L 12/12/19 07:45 97.5 F 60 18 133/43 L 12/12/19 02:00 98 F 62 18 150/54 H Pulse Ox Pulse Ox 12/12/19 08:16 12/12/19 07:45 96 96 12/12/19 02:00 95 Date Exam was Performed: 12/12/19 Time Exam was Performed: 11:01 - Problem List & Annotations (1) CHF (congestive heart failure) SNOMED Code(s): 96610552 Code(s): I50.9 - HEART FAILURE, UNSPECIFIED Status: Acute Current Visit: No (2) Afib SNOMED Code(s): 99743690 Code(s): I48.91 - UNSPECIFIED ATRIAL FIBRILLATION Status: Chronic Current Visit: No Qualifiers: Atrial fibrillation type: unspecified Qualified Code(s): I48.91 - Unspecified atrial fibrillation (3) CAD (coronary artery disease) of artery bypass graft SNOMED Code(s): 986313193, 09654716, 991237310, 454078598, 142298999 Code(s): I25.810 - ATHEROSCLEROSIS OF CABG W/O ANGINA PECTORIS Status: Chronic Current Visit: No Qualifiers: [place] vs. transplanted heart: [place] heart (4) COPD (chronic obstructive pulmonary disease) SNOMED Code(s): 87139315 Code(s): J44.9 - CHRONIC OBSTRUCTIVE PULMONARY DISEASE, UNSPECIFIED Status: Chronic Current Visit: No Qualifiers: COPD type: unspecified COPD Qualified Code(s): J44.9 - Chronic obstructive pulmonary disease, unspecified (5) Long-term (current) use of anticoagulants, INR goal 2.0-3.0 SNOMED Code(s): 741759706, 889743146 Code(s): Z79.01 - NURSING HOME (CURRENT) USE OF ANTICOAGULANTS Status: Chronic Current Visit: No (6) DM2 (diabetes mellitus, type 2) SNOMED Code(s): 53114285 Code(s): E11.9 - TYPE 2 DIABETES MELLITUS WITHOUT COMPLICATIONS Status: Chronic Current Visit: No Qualifiers: Diabetes mellitus shelter insulin use: with shelter use Diabetes mellitus complication status: with other specified complication Qualified Code(s): E11.69 - Type 2 diabetes mellitus with other specified complication; Z79.4 - jail (current) use of insulin; Z79.4 - jail (current) use of insulin; Z79.4 - jail (current) use of insulin; Z79.4 - [employer] agent (current) use of insulin (7) Essential tremor SNOMED Code(s): 323319770 Code(s): G25.0 - ESSENTIAL TREMOR Status: Chronic Current Visit: No (8) Incontinence of urine SNOMED Code(s): 111399555 Code(s): R32 - UNSPECIFIED URINARY INCONTINENCE Status: Chronic Current Visit: No Qualifiers: Urinary Incontinence type: mixed stress and urge incontinence Qualified Code(s): N39.46 - Mixed incontinence (9) Obesity SNOMED Code(s): 229425902, 734328460 Code(s): E66.9 - OBESITY, UNSPECIFIED Status: Chronic Current Visit: No Qualifiers: Obesity type: due to excess calories Serious obesity comorbidity presence: with serious comorbidity - Problem List Review Problem List Initiated/Reviewed/Updated: Yes - My Orders Last 24 Hours: My Active Orders 12/12/19 09:30 Insert [place] Catheter [Insert Urinary Catheter] [OM.PC] Q24H 12/12/19 16:00 Warfarin [Coumadin] 4 mg PO ONETIME ONE 12/13/19 05:00 BASIC METABOLIC PANEL,BMP [CHEM] Routine 12/13/19 08:57 INR,PT,PROTHROMBIN TIME [COAG] DAILY 12/13/19 09:00 Torsemide [Demadex] 20 mg PO DAILY 12/14/19 08:57 INR,PT,PROTHROMBIN TIME [COAG] DAILY - Plan Plan:: 1. Change to Torsemide 20 mg back to daily, will monitor output and weights and adjust as needed. 2. Atrial fibrillation, INR 2.03 therapeutic now, pharmacy to dose Coumadin. 3. Candidal skin infection: Nystatin powder topical bid to affected area. 4. Miralax 17 gm daily, Senna daily prn and Colace bid prn for constipation. 5. Cr bumped up to 1.3, potassium stable.
[2019-12-12] MEDS ORDERED: Warfarin 4 MG Tab PO ONE (16:00)
[2019-12-12] MEDS: Lisinopril 5 MG Tab PO SCH (17:20)
[2019-12-12] MEDS: FLUoxetine 20 MG Cap PO SCH (21:23)
[2019-12-12] MEDS: Simvastatin 40 MG Tab PO SCH (21:24)
[2019-12-12] MEDS: FLUoxetine 10 MG Cap PO SCH (21:24)
[2019-12-13] MEDS: MAGNESIUM 250 MG PO SCH (08:13)
[2019-12-13] MEDS: Nystatin Topical Powder 15 GM Bottle TOP SCH (08:13)
[2019-12-13] MEDS: Acetaminophen 500 MG Tab PO SCH (08:14)
[2019-12-13] MEDS: Calcium Carbonate 500 MG Tablet PO SCH (08:14)
[2019-12-13] MEDS: Carboxymethylcellulose Sodium 0.5% Ophth Soln 15 ML Bottle EYEBOTH SCH (08:15)
[2019-12-13] MEDS: Oxybutynin 5 MG Tab.ER PO SCH (08:15)
[2019-12-13] MEDS: Polyethylene Glycol 3350 Powder 17 GM Packet PO SCH (08:15)
[2019-12-13] MEDS: Insulin Lispro 100 Unit/ML 3 ML KwikPen SUBCUT SCH ×2 (08:19→12:05)
[2019-12-13] MEDS: Cholecalciferol (Vitamin D3) 25 MCG Tab PO SCH (08:21)
[2019-12-13] MEDS: Carvedilol 3.125 MG Tab PO SCH (08:22)
[2019-12-13] MEDS: Insulin Glargine,Human Rec. Analog 100 Units/ML 3 ML Pen SUBCUT SCH (08:22)
[2019-12-13] MEDS: busPIRone 5 MG Tab PO SCH (08:22)
[2019-12-13 08:24] VITALS: BP 120/44; PULSE 65
[2019-12-13] MEDS: Gabapentin 100 MG Cap PO SCH (08:29)
[2019-12-13] MEDS ORDERED: Torsemide 20 MG Tab PO SCH (09:00)
[2019-12-13] MEDS: Albuterol/Ipratropium 3.0-0.5 MG/3 ML Neb Soln INH SCH (09:35)
[2019-12-13] MEDS ORDERED: Insulin Glargine,Human Rec. Analog 100 Units/ML 3 ML Pen SUBCUT ONE (10:44)
[2019-12-13] MEDS ORDERED: Insulin Lispro 100 Unit/ML 3 ML KwikPen SUBCUT ONE (10:44)
[2019-12-13] MEDS ORDERED: Warfarin 2.5 MG Tab PO SCH (16:00)
--- NOTE | 2019-12-13 19:27 | PCM.DCSUM1 ---
Discharge Summary - Hospital Course HPI Initial Comments: Brigido is a 74 yr old female from [facility] that has had a 17 pound weight gain since November 23, she had her afternoon Lasix 20 mg dose increased to 40 mg with extra Metolazone given on Sat/Sun with no change in weight. Patient made appt in the walk-in clinic Weds due to increased shortness of breath and the weight gain. Denies any fevers, chills, cough, chest pain. No abdominal pain, nausea, vomiting, diarrhea or constipation. She is incontinent of urine at time. Wheelchair bound. CXR in clinic showed worsening CHF, questionable pneumonia but x-ray was under-inflated. WBC was normal. COVID negative. BNP 2208. Direct admission from clinic arrived after 6 pm. Diagnosis: Stroke: No - Discharge Data Discharge Date: 12/13/19 ([facility]) Discharge Disposition: DC/[facility]fer to [facility] Condition: Good - Referral to Home Health Primary Care Physician: Mejia Brooks MD - Discharge Diagnosis/Problem(s) (1) CHF (congestive heart failure) SNOMED Code(s): 02764256 ICD Code: I50.9 - HEART FAILURE, UNSPECIFIED Status: Chronic Problem Details: Exacerbation resolving (2) Afib SNOMED Code(s): 96272009 ICD Code: I48.91 - UNSPECIFIED ATRIAL FIBRILLATION Status: Chronic Qualifiers: Atrial fibrillation type: unspecified Qualified Code(s): I48.91 - Unspecified atrial fibrillation (3) CAD (coronary artery disease) of artery bypass graft SNOMED Code(s): 573221330, 07615203, 510827982, 456236452, 602488150 ICD Code: I25.810 - ATHEROSCLEROSIS OF CABG W/O ANGINA PECTORIS Status: Chronic Qualifiers: [place] vs. transplanted heart: [place] heart (4) COPD (chronic obstructive pulmonary disease) SNOMED Code(s): 27388785 ICD Code: J44.9 - CHRONIC OBSTRUCTIVE PULMONARY DISEASE, UNSPECIFIED Status: Chronic Qualifiers: COPD type: unspecified COPD Qualified Code(s): J44.9 - Chronic obstructive pulmonary disease, unspecified (5) Long-term (current) use of anticoagulants, INR goal 2.0-3.0 SNOMED Code(s): 819125525, 223386380 ICD Code: Z79.01 - DIESEL ENGINE FITTER (CURRENT) USE OF ANTICOAGULANTS Status: Chronic (6) DM2 (diabetes mellitus, type 2) SNOMED Code(s): 97394370 ICD Code: E11.9 - TYPE 2 DIABETES MELLITUS WITHOUT COMPLICATIONS Status: C hronic Qualifiers: Diabetes mellitus longterm insulin use: with longterm use Diabetes mellitus complication status: with other specified complication Qualified Code(s): E11.69 - Type 2 diabetes mellitus with other specified complication; Z79.4 - long term (current) use of insulin; Z79.4 - custodial (current) use of insulin; Z79.4 - custodial (current) use of insulin; Z79.4 - long term (current) use of insulin (7) Essential tremor SNOMED Code(s): 838258939 ICD Code: G25.0 - ESSENTIAL TREMOR Status: Chronic (8) Incontinence of urine SNOMED Code(s): 028541274 ICD Code: R32 - UNSPECIFIED URINARY INCONTINENCE Status: Chronic Qualifiers: Urinary Incontinence type: mixed stress and urge incontinence Qualified Code(s): N39.46 - Mixed incontinence (9) Obesity SNOMED Code(s): 041259146, 521663925 ICD Code: E66.9 - OBESITY, UNSPECIFIED Status: Chronic Qualifiers: Obesity type: due to excess calories Serious obesity comorbidity presence: with serious comorbidity - Patient Summary/Data Hospital Course: Brigido was admitted late evening on , received Lasix 60 mg IV with poor response, lost 1 pound, missed the hat so did not have exact output. Received 1 dose of Acetazolamide for CHF and elevated CO2 at 38, had about 2200 out, with 4 pound weight loss. Changed to Torsemide 20 mg daily on Friday 1930 ml, so dose increased to twice a day and had 3500 ml out, decreased back down to daily. Her weight has gone down to 250, states her dry weight is 244. Her creatinine has come down to 1.1. She was edematous to midthighs 3+, has improved to trace/1+ to knees, resolved in thighs. Weaned off oxygen prior to discharge. Boudreaux was placed on morning for strict I&Os. She was also found to have candidal skin infection under pannus was started on Nystatin powder bid to affected area for 14 days. She was subtherapeutic on her INR for Atrial fibrillation, was in goal range on discharge, Coumadin dose changed to 2.5 mg daily. - Patient Instructions Diet, Other: Resume previous diet in [place] Activity: As Tolerated Showering/Bathing: May Shower Notify Provider of: Fever, Increased Pain Other/Special Instructions: Follow up with Dr Brooks in 1-2 weeks. - Discharge Plan *PRESCRIPTION DRUG MONITORING PROGRAM REVIEWED*: Not Applicable *COPY OF PRESCRIPTION DRUG MONITORING REPORT IN PATIENT HOLLI: Not Applicable Prescriptions/Med Rec: Warfarin [Coumadin] 2.5 mg PO DAILY@1600 30 Days #30 tablet Torsemide [Demadex] 20 mg PO DAILY 30 Days #30 tablet Nystatin [Nystop] 1 gm TOP BID #1 bottle Home Medications: Home Meds Furosemide 40 mg PO BID@08,12 08/19/15 [History] Insulin Isophane NPH, Human [NovoLIN N] 54 units SQ BIDMEALS 08/19/15 [History] Insulin Regular, Human [NovoLIN R] 18 units SQ TIDMEALS 08/19/15 [History] Simvastatin 40 mg PO BEDTIME 08/19/15 [History] Nitroglycerin [Nitrostat] 0.4 mg SL Q5M PRN 07/10/16 [History] Calcium Citrate/Vitamin D3 [Citracal + D Maximum Caplet] 1 tab PO DAILY 07/13/17 [History] Cholecalciferol (Vitamin D3) [Vitamin D3] 2,000 unit PO DAILY 07/13/17 [History] Magnesium 250 mg PO DAILY 07/13/17 [History] Oxybutynin Chloride [Ditropan Xl] 10 mg PO DAILY 10/29/17 [History] Acetaminophen [Tylenol Extra Strength] 1,000 mg PO TID 11/14/17 [History] Albuterol/Ipratropium [DuoNeb 3.0-0.5 MG/3 ML] 1 unit INH DAILY 12/08/19 [History] Albuterol/Ipratropium [DuoNeb 3.0-0.5 MG/3 ML] 1 unit INH QID PRN 12/08/19 [History] Gabapentin [Neurontin] 200 mg PO BID 12/08/19 [History] Sennosides/Docusate Sodium [Senna-S 8.6-50 mg Tablet] 1 tab PO DAILY PRN 12/08/19 [History] busPIRone HCl [Buspirone HCl] 5 mg PO BID 12/08/19 [History] carvediloL [Coreg] 3.125 mg PO BID 12/08/19 [History] Aspirin [Halfprin] 81 mg PO BEDTIME 12/09/19 [History] Carbamide Peroxide [Debrox 6.5% Otic Soln] 3 drop EARBOTH DAILY PRN 12/09/19 [History] Carboxymethylcellulose Sodium [Refresh Tears] 1 drop EYEBOTH DAILY 12/09/19 [History] Carboxymethylcellulose Sodium [Refresh Tears] 1 drop EYEBOTH Q2H PRN 12/09/19 [History] FLUoxetine HCl [Fluoxetine HCl] 20 mg PO BEDTIME 12/09/19 [History] FLUoxetine HCl [Prozac] 10 mg PO BEDTIME 12/09/19 [History] lidocaine HCL [Aspercreme Lidocaine] 1 applic TOP BID 12/09/19 [History] lidocaine HCL [Aspercreme Lidocaine] 1 applic TOP BID PRN 12/09/19 [History] lisinopriL [Lisinopril] 5 mg PO WITHDINNER 12/09/19 [History] Nystatin [Nystop] 1 gm TOP BID #1 bottle 12/13/19 [Rx] Torsemide [Demadex] 20 mg PO DAILY 30 Days #30 tablet 12/13/19 [Rx] Warfarin [Coumadin] 2.5 mg PO DAILY@1600 30 Days #30 tablet 12/13/19 [Rx] metOLazone [Metolazone] 2.5 mg PO DAILY PRN #30 12/13/19 [Rx] Oxygen Therapy Mode: Room Air Maintain SpO2% greater than: 90 Patient Handouts: Heart Failure, Self Care, Zphy-me-Awzo, Fall Prevention in Hospitals, Adult, Venous Thromboembolism Prevention Referrals: Mejia Brooks MD [Primary Care Provider] - - Discharge Summary/Plan Comment DC Time >30 min.: Yes - General Info Date of Service: 12/13/19 Admission Dx/Problem (Free Text: Brigido was weaned off oxygen, had excellent output overnight. Would like to go back to ID. Shortness of breath improved. Edema is improved. - Patient Data Vitals - Most Recent: Last Vital Signs Temp 98.2 F 12/13/19 08:00 Pulse 65 12/13/19 08:22 Resp 22 H 12/13/19 08:00 BP 120/44 L 12/13/19 08:22 Pulse Ox 96 12/13/19 08:00 Weight - Most Recent: 250 lb 3.2 oz I&O - Last 24 hours: Intake & Output 12/13/19 12/13/19 12/13/19 06:59 14:59 22:59 Intake Total 400 Output Total 600 300 Balance -600 100 Lab Results - Last 24 hrs: Laboratory Results - last 24 hr 12/12/19 12/13/19 12/13/19 Range/Units 21:17 06:30 06:30 PT 23.9 H (9.0-11.1) sec INR 2.34 H (1.00-1.24) Sodium 142 (135-145) mmol/L Potassium 4.1 (3.5-5.3) mmol/L Chloride 102 (100-110) mmol/L Carbon Dioxide 38 H (21-32) mmol/L BUN 35 H (7-18) mg/dL Creatinine 1.1 H (0.55-1.02) mg/dL Est Cr Clr Drug Dosing 37.57 mL/min Estimated GFR (MDRD) 48 L (>60) BUN/Creatinine Ratio 31.8 H (9-20) Glucose 146 H (80-116) mg/dL POC Glucose 252 H (80-116) mg/dL Calcium 9.0 (8.6-10.2) mg/dL Med Orders - Current: Current Medications Discontinued Medications Acetaminophen (Tylenol Extra Strength) 1,000 mg PO TID [facility] Last Admin: 12/13/19 08:14 Dose: 1,000 mg Documented by: Acetazolamide (Diamox) 250 mg PO DAILY [facility] Last Admin: 12/09/19 10:00 Dose: 250 mg Documented by: Albuterol/Ipratropium (Duoneb 3.0-0.5 Mg/3 Ml) 3 ml INH QID PRN PRN Reason: Wheezing Albuterol/Ipratropium (Duoneb 3.0-0.5 Mg/3 Ml) 3 ml INH DAILY [facility] Last Admin: 12/13/19 09:35 Dose: 3 ml Documented by: Artificial Tears (Refresh Tears 0.5%) 0 ml EYEBOTH DAILY [facility] Last Admin: 12/09/19 09:42 Dose: 1 drop Documented by: Artificial Tears (Refresh Tears 0.5%) 0 ml EYEBOTH Q2H PRN PRN Reason: Dry Eyes Artificial Tears (Refresh Tears 0.5%) 0 ml EYEBOTH DAILY [facility] Last Admin: 12/13/19 08:15 Dose: 1 drop Documented by: Artificial Tears (Refresh Tears 0.5%) 0 ml EYEBOTH Q2H PRN PRN Reason: Dry Eyes Buspirone HCl (Buspar) 5 mg PO BID [facility] Last Admin: 12/13/19 08:22 Dose: 5 mg Documented by: Calcium Carbonate/Glycine (Oyster Shell Calcium) 500 mg PO DAILY [facility] Last Admin: 12/13/19 08:14 Dose: 500 mg Documented by: Carvedilol (Coreg) 3.125 mg PO BID [facility] Last Admin: 12/13/19 08:22 Dose: 3.125 mg Documented by: Cholecalciferol (Vitamin D3) 50 mcg PO DAILY [facility] Last Admin: 12/13/19 08:21 Dose: 50 mcg Documented by: Docusate Sodium (Colace) 100 mg PO BID PRN PRN Reason: Constipation Last Admin: 12/12/19 08:19 Dose: 100 mg Documented by: Enoxaparin Sodium (Lovenox) 40 mg SUBCUT Q24H [facility] Last Admin: 12/08/19 20:00 Dose: Not Given Documented by: Fluoxetine HCl (Prozac) 20 mg PO BEDTIME [facility] Last Admin: 12/12/19 21:23 Dose: 20 mg Documented by: Fluoxetine HCl (Prozac) 10 mg PO BEDTIME [facility] Last Admin: 12/12/19 21:24 Dose: 10 mg Documented by: Furosemide (Lasix) 60 mg IVPUSH NOW ONE Stop: 12/08/19 18:27 Last Admin: 12/08/19 19:10 Dose: 60 mg Documented by: Gabapentin (Neurontin) 200 mg PO BID [facility] Last Admin: 12/13/19 08:29 Dose: 200 mg Documented by: Gabapentin (Neurontin) 200 mg PO ONETIME ONE Stop: 12/08/19 22:01 Last Admin: 12/08/19 22:44 Dose: 200 mg Documented by: Insulin Glargine (Lantus Solostar) 48 units SUBCUT BID [facility] Last Admin: 12/13/19 08:22 Dose: 48 units Documented by: Insulin Glargine (Lantus Solostar) 300 units SUBCUT .STK-MED ONE Stop: 12/13/19 10:45 Insulin Human Lispro (Humalog) 0 unit SUBCUT TIDMEALS [facility]; Protocol Last Admin: 12/13/19 12:05 Dose: 8 unit Documented by: Insulin Human Lispro (Humalog) 300 unit SUBCUT .STK-MED ONE Stop: 12/13/19 10:45 Insulin Human Regular (Humulin R) 18 unit SUBCUT TIDMEALS [facility] Last Admin: 12/09/19 18:30 Dose: 18 unit Documented by: Lisinopril (Prinivil) 5 mg PO WITHDINNER [facility] Last Admin: 12/12/19 17:20 Dose: 5 mg Documented by: Metolazone (Zaroxolyn) 2.5 mg PO ONETIME ONE Stop: 12/08/19 18:27 Last Admin: 12/08/19 19:11 Dose: 2.5 mg Documented by: Metolazone (Zaroxolyn) 2.5 mg PO We@0730 [facility] Nitroglycerin (Nitrostat) 0.4 mg SL DAILY PRN PRN Reason: Chest Pain (Calcium Citrate/Vitamin D3 [Citracal + D Maximum Caplet] 1 tab PO DAILY [facility] Last Admin: 12/10/19 10:09 Dose: Not Given Documented by: Non-Formulary Medication (Fluoxetine Hcl [Fluoxetine Hcl]) 40 mg PO BEDTIME [facility] (Insulin Isophane Nph, Human [Novolin N] 54 Units) *Ptom 54 units SQ BIDMEALS [facility] Last Admin: 12/10/19 10:09 Dose: Not Given Documented by: (Magnesium [ Magnesium] 250 Mg) * Ptom 250 mg PO DAILY [facility] Last Admin: 12/13/19 08:13 Dose: 250 mg Documented by: (Oxybutynin Chloride [Ditropan Xl] 10 Mg ) *Ptom 10 mg PO DAILY [facility] Last Admin: 12/09/19 09:38 Dose: 10 mg Documented by: Non-Formulary Medication (Insulin Isophane Nph, Human [Novolin N]) 50 units SQ BIDMEALS [facility] Last Admin: 12/10/19 09:57 Dose: 50 units Documented by: Nystatin (Nystop) 1 gm TOP BID [facility] Last Admin: 12/13/19 08:13 Dose: 1 applic Documented by: Ondansetron HCl (Zofran) 4 mg IV Q4H PRN PRN Reason: Nausea/Vomiting Oxybutynin Chloride (Oxybutynin Er) 10 mg PO DAILY [facility] Last Admin: 12/13/19 08:15 Dose: 10 mg Documented by: Polyethylene Glycol (Miralax) 17 gm PO DAILY [facility] Last Admin: 12/13/19 08:15 Dose: 17 gm Documented by: Senna/Docusate Sodium (Senna Plus) 1 tab PO DAILY PRN PRN Reason: Constipation Simvastatin (Zocor) 40 mg PO BEDTIME [facility] Last Admin: 12/12/19 21:24 Dose: 40 mg Documented by: Sodium Chloride (Saline Flush) 10 ml FLUSH ASDIRECTED PRN PRN Reason: Keep Vein Open Last Admin: 12/12/19 08:15 Dose: 10 ml Documented by: Torsemide (Demadex) 20 mg PO DAILY [facility] Last Admin: 12/11/19 08:15 Dose: 20 mg Documented by: Torsemide (Demadex) 20 mg PO BIDDIURETIC [facility] Last Admin: 12/12/19 08:16 Dose: 20 mg Documented by: Torsemide (Demadex) 20 mg PO DAILY [facility] Last Admin: 12/13/19 09:35 Dose: 20 mg Documented by: Warfarin Sodium (Coumadin Sliding Scale) 1 each PO DAILY [facility] Warfarin Sodium (Coumadin) 3.75 mg PO ONETIME ONE Stop: 12/09/19 16:01 Last Admin: 12/09/19 16:08 Dose: 3.75 mg Documented by: Warfarin Sodium (Coumadin) 3.75 mg PO ONETIME ONE Stop: 12/10/19 16:01 Last Admin: 12/10/19 16:58 Dose: 3.75 mg Documented by: Warfarin Sodium (Coumadin) 4 mg PO ONETIME ONE Stop: 12/11/19 16:01 Last Admin: 12/11/19 16:08 Dose: 4 mg Documented by: Warfarin Sodium (Coumadin) 4 mg PO ONETIME ONE Stop: 12/12/19 16:01 Last Admin: 12/12/19 16:19 Dose: 4 mg Documented by: Warfarin Sodium (Coumadin) 2.5 mg PO DAILY@1600 [facility] Zolpidem Tartrate (Ambien) 5 mg PO BEDTIME PRN PRN Reason: Sleep - Exam Quality Assessment: Denies: Supplemental Oxygen General: Reports: Alert, Oriented, Cooperative, No Acute Distress Lungs: Reports: Clear to Auscultation, Normal Respiratory Effort, Decreased Breath Sounds (Bibasilar). Denies: Crackles, Wheezing Cardiovascular: Reports: Regular Rate, Irregular Rhythm GI/Abdominal Exam: Normal Bowel Sounds, Soft, Non-Tender, No Distention Extremities: Pedal Edema (trace/1+ BLE to knees) Skin: Reports: Warm, Dry, Intact *Q Meaningful Use (DIS) - VTE *Q VTE Mechanical Contraindications *Q: Congestive Heart Failure
[2019-12-15] MEDS ORDERED: Metolazone 2.5 MG Tab PO SCH (07:30)
== END 2019-12-13 13:10 | DRG 292 ==
LOC: FB.MS 08:48 → OBSVTOIN 12-10 08:48
PROVIDERS: ADMIT Emergency Medicine; ATTEND Family Medicine
DX: I11.0 Hypertensive heart disease with heart failure (principal); I25.10 Atherosclerotic heart disease of native coronary artery without angina pectoris; I25.810 Atherosclerosis of coronary artery bypass graft(s) without angina pectoris; Z68.41 Body mass index [BMI] 40.0-44.9, adult; I50.9 Heart failure, unspecified; H91.90 Unspecified hearing loss, unspecified ear; Z66 Do not resuscitate; H91.93 Unspecified hearing loss, bilateral; H54.7 Unspecified visual loss; E11.42 Type 2 diabetes mellitus with diabetic polyneuropathy; E78.00 Pure hypercholesterolemia, unspecified; H35.30 Unspecified macular degeneration; B37.2 Candidiasis of skin and nail; F32.9 Major depressive disorder, single episode, unspecified; I48.91 Unspecified atrial fibrillation; E11.40 Type 2 diabetes mellitus with diabetic neuropathy, unspecified; K59.00 Constipation, unspecified; E66.09 Other obesity due to excess calories; J44.9 Chronic obstructive pulmonary disease, unspecified; G25.0 Essential tremor; Z88.6 Allergy status to analgesic agent; N39.46 Mixed incontinence; Z95.1 Presence of aortocoronary bypass graft; Z79.01 Long term (current) use of anticoagulants; Z95.5 Presence of coronary angioplasty implant and graft; Z79.4 Long term (current) use of insulin; Z87.01 Personal history of pneumonia (recurrent); Z90.49 Acquired absence of other specified parts of digestive tract; I25.2 Old myocardial infarction; Z88.5 Allergy status to narcotic agent; Z79.82 Long term (current) use of aspirin; Z79.899 Other long term (current) drug therapy; Z99.3 Dependence on wheelchair
CPT/HCPCS: 36415 ×3; 51702; 80048 ×3; 82962 ×6; 85025; 85610 ×3; 94640; A9270 ×31; J1815; J1940; 71046; 80053; 83880; 94762; 96375; G0378; J7620-GY; U0002

== ENCOUNTER 2021-03-03 23:45 | Emergency (ER) | payer MEDICARE, BC, MEDICAID ==
--- NOTE | 2021-03-04 01:03 | EDM.PDOC ---
ED HPI GENERAL MEDICAL PROBLEM - General Chief Complaint: Cardiovascular Problem Stated Complaint: DIZZY SPELL/LOW BP Time Seen by Provider: 03/04/21 00:01 Source of Information: Reports: Patient - History of Present Illness INITIAL COMMENTS - FREE TEXT/NARRATIVE: 75-year-old lady is a resident at [facility] and was sent to the emergency department due to significant difficulties with weakness and dizziness. Patient states that she thinks that she felt well until early this evening. [facility] staff checked her blood sugar and it was only 42. She went ahead and had dinner and still did not feel well. She had significant weakness and difficulty standing and ambulating. She denies fever, chills, chest pain, shortness of breath, change in bowel or bladder habit. She does wear a pull-up because of difficulties with incontinence. - Related Data Allergies Allergy/AdvReac Type Severity Reaction Status Date / Time hydrocodone Allergy Hallucinati Verified 04/16/18 22:34 ons oxycodone Allergy Hallucinati Verified 04/16/18 22:34 ons Home Meds: Home Meds Furosemide 40 mg PO BID@08,12 08/19/15 [History] Insulin Isophane NPH, Human [NovoLIN N] 60 units SQ BIDMEALS 08/19/15 [History] Insulin Regular, Human [NovoLIN R] 20 units SQ TIDMEALS 08/19/15 [History] Simvastatin 40 mg PO BEDTIME 08/19/15 [History] Nitroglycerin [Nitrostat] 0.4 mg SL Q5M PRN 07/10/16 [History] Calcium Citrate/Vitamin D3 [Citracal + D Maximum Caplet] 1 tab PO DAILY 07/13/17 [History] Magnesium 250 mg PO DAILY 07/13/17 [History] Oxybutynin Chloride [Ditropan Xl] 10 mg PO DAILY 10/29/17 [History] Acetaminophen [Tylenol Extra Strength] 1,000 mg PO TID 11/14/17 [History] Albuterol/Ipratropium [DuoNeb 3.0-0.5 MG/3 ML] 1 unit INH DAILY 12/08/19 [History] Albuterol/Ipratropium [DuoNeb 3.0-0.5 MG/3 ML] 1 unit INH QID PRN 12/08/19 [History] Gabapentin [Neurontin] 200 mg PO BID 12/08/19 [History] carvediloL [Coreg] 3.125 mg PO BID 12/08/19 [History] Aspirin [Halfprin] 81 mg PO BEDTIME 12/09/19 [History] Carboxymethylcellulose Sodium [Refresh Tears] 1 drop EYEBOTH BID 12/09/19 [History] FLUoxetine HCl [Fluoxetine HCl] 20 mg PO BEDTIME 12/09/19 [History] FLUoxetine HCl [Prozac] 10 mg PO BEDTIME 12/09/19 [History] lidocaine HCL [Aspercreme Lidocaine] 1 applic TOP BID 12/09/19 [History] lisinopriL [Lisinopril] 5 mg PO WITHDINNER 12/09/19 [History] metOLazone [Metolazone] 2.5 mg PO DAILY PRN #30 12/13/19 [Rx] Cholecalciferol (Vitamin D3) [Vitamin D3] 2,000 unit PO DAILY 03/04/21 [History] Ferrous Sulfate 325 mg PO BIDMEALS 03/04/21 [History] Omeprazole 20 mg PO DAILY 03/04/21 [History] Warfarin [Coumadin] 1.25 mg PO MO 03/04/21 [History] Warfarin [Coumadin] 2.5 mg PO SUTUWETHFRSA 03/04/21 [History] busPIRone [Buspar] 5 mg PO BID 03/04/21 [History] metOLazone [Metolazone] 2.5 mg PO MOTH 03/04/21 [History] polyethylene glycoL 3350 [MiraLAX] 17 gm PO DAILY 03/04/21 [History] Past Medical History HEENT History: Reports: Cataract, Hard of Hearing, Impaired Vision, Other (See Below) Other HEENT History: macular degeneration Cardiovascular History: Reports: Afib, Bypass, High Cholesterol, Hypertension, NC Other Cardiovascular History: IRREGULAR HEARTBEAT IN PAST. HX OF DIZZINESS Respiratory History: Reports: Pneumonia, Recurrent Other Respiratory History: Hx rib fracture. Gastrointestinal History: Reports: Cholelithiasis Genitourinary History: Reports: Urinary Incontinence Other Genitourinary History: Hx asymptomatic bacteriuria. 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: Musculoskeletal History: Reports: Other (See Below) Other Musculoskeletal History: walks with walker gait unsteady Neurological History: Reports: Neuropathy, Diabetic, Vertigo Other Neuro History: hx tremors, states is not parkinson's Psychiatric History: Reports: Depression Other Psychiatric History: ON MEDICATION FOR DEPRESSION Endocrine/Metabolic History: Reports: Diabetes, Type II - Infectious Disease History Infectious Disease History: Reports: Chicken Pox, Measles, Shingles - Past Surgical History Cardiovascular Surgical History: Reports: Coronary Artery Bypass, Coronary Artery Stent GI Surgical History: Reports: Appendectomy, Cholecystectomy Musculoskeletal Surgical History: Reports: ORIF Social & Family History - Family History Family Medical History: No Pertinent Family History Endocrine/Metabolic: Reports: Diabetes, type II Oncologic: Reports: Renal - Caffeine Use Caffeine Use: Reports: None ED ROS GENERAL - Review of Systems Review Of Systems: See Below Constitutional: Reports: Malaise, Weakness, Fatigue HEENT: Reports: No Symptoms Respiratory: Reports: No Symptoms Cardiovascular: Reports: No Symptoms Endocrine: Reports: No Symptoms GI/Abdominal: Reports: No Symptoms : Reports: No Symptoms Musculoskeletal: Reports: No Symptoms Skin: Reports: No Symptoms Neurological: Reports: Difficulty Walking, Weakness Psychiatric: Reports: No Symptoms Hematologic/Lymphatic: Reports: No Symptoms Immunologic: Reports: No Symptoms ED EXAM, GENERAL - Physical Exam Exam: See Below Exam Limited By: No Limitations General Appearance: Alert, Mild Distress Eye Exam: Bilateral Eye: EOMI Head: Atraumatic, Normocephalic Neck: Normal Inspection. No: Lymphadenopathy (R), Lymphadenopathy (L) Respiratory/Chest: Crackles Cardiovascular: Tachycardia Peripheral Pulses: 2+: Radial (L), Radial (R), Dorsalis Pedis (L), Dorsalis Pedis (R) GI/Abdominal: Normal Bowel Sounds, Soft, Non-Tender Back Exam: Normal Inspection. No: CVA Tenderness (R), CVA Tenderness (L) Extremities: No Pedal Edema Neurological: Alert, Oriented, CN II-XII Intact, Normal Cognition Psychiatric: Normal Affect, Normal Mood Skin Exam: Warm, Dry, Intact Course - Vital Signs Text/Narrative:: Review of lab work shows acute kidney injury, leukocytosis, and mild elevation of BNP. Concern for urinary tract infection. Patient was given about 400 mL normal saline over 1 hour. Patient states that she feels much better would like to go back to the alf and go to bed. Review of her EKG shows no significant change from prior EKG but there is concern for inferior lateral ischemia. Troponin was negative. Last Recorded V/S: Last Vital Signs Temp 36.6 C 03/03/21 23:50 Pulse 104 H 03/03/21 23:50 Resp 20 03/03/21 23:50 BP 100/46 L 03/03/21 23:50 Pulse Ox 95 03/03/21 23:50 - Orders/Labs/Meds Labs: Laboratory Tests 03/04/21 03/04/21 03/04/21 Range/Units 00:05 00:05 00:05 WBC 15.4 H (3.0-10.3) x10-3/uL RBC 3.29 L (3.60-5.20) x10(6)uL Hgb 10.9 L (11.4-15.5) g/dL Hct 33.4 L (34.2-48.2) % MCV 101.7 H (76.7-100.5) fL MCH 33.0 (23.9-33.9) pg MCHC 32.5 (31.9-34.8) g/dL RDW 18.2 H (12.3-16.5) % Plt Count 219 (151-488) x10(3)uL MPV 7.6 (7.1-12.4) fL Add Manual Diff Yes Neutrophils % (Manual) 92 H (46-82) % Band Neutrophils % 3 (0-6) % Lymphocytes % (Manual) 1 L (13-37) % Monocytes % (Manual) 3 L (4-12) % Basophils % (Manual) 1 (0-2) % Poikilocytosis Few Anisocytosis Few PT 25.8 H (9.0-11.1) sec INR 2.54 H (1.00-1.24) Sodium 142 (135-145) mmol/L Potassium 4.8 (3.5-5.3) mmol/L Chloride 102 (100-110) mmol/L Carbon Dioxide 33 H (21-32) mmol/L BUN 61 H D (7-18) mg/dL Creatinine 1.8 H (0.55-1.02) mg/dL Est Cr Clr Drug Dosing 20.70 mL/min Estimated GFR (MDRD) 27 L (>60) BUN/Creatinine Ratio 33.9 H (9-20) Glucose 192 H (80-116) mg/dL Calcium 9.0 (8.6-10.2) mg/dL Total Bilirubin 0.4 (0.1-1.3) mg/dL AST 24 D (5-25) IU/L ALT 24 (12-36) U/L Alkaline Phosphatase 53 L (56-112) IU/L Troponin I (4.0-60.3) pg/mL NT-Pro-B Natriuret Pep (<=450) pg/mL Total Protein 6.4 (6.0-8.0) g/dL Albumin 2.9 L (3.2-4.6) g/dL Globulin 3.5 g/dL Albumin/Globulin Ratio 0.8 03/04/21 Range/Units 00:05 WBC (3.0-10.3) x10-3/uL RBC (3.60-5.20) x10(6)uL Hgb (11.4-15.5) g/dL Hct (34.2-48.2) % MCV (76.7-100.5) fL MCH (23.9-33.9) pg MCHC (31.9-34.8) g/dL RDW (12.3-16.5) % Plt Count (151-488) x10(3)uL MPV (7.1-12.4) fL Add Manual Diff Neutrophils % (Manual) (46-82) % Band Neutrophils % (0-6) % Lymphocytes % (Manual) (13-37) % Monocytes % (Manual) (4-12) % Basophils % (Manual) (0-2) % Poikilocytosis Anisocytosis PT (9.0-11.1) sec INR (1.00-1.24) Sodium (135-145) mmol/L Potassium (3.5-5.3) mmol/L Chloride (100-110) mmol/L Carbon Dioxide (21-32) mmol/L BUN (7-18) mg/dL Creatinine (0.55-1.02) mg/dL Est Cr Clr Drug Dosing mL/min Estimated GFR (MDRD) (>60) BUN/Creatinine Ratio (9-20) Glucose (80-116) mg/dL Calcium (8.6-10.2) mg/dL Total Bilirubin (0.1-1.3) mg/dL AST (5-25) IU/L ALT (12-36) U/L Alkaline Phosphatase (56-112) IU/L Troponin I 24.1 (4.0-60.3) pg/mL NT-Pro-B Natriuret Pep 5390 H* (<=450) pg/mL Total Protein (6.0-8.0) g/dL Albumin (3.2-4.6) g/dL Globulin g/dL Albumin/Globulin Ratio Meds: Medications Discontinued Medications Generic Name Dose Route Start Last Admin Trade Name Uday PRN Reason Stop Dose Admin Sodium Chloride 500 mls @ 500 mls/hr 03/04/21 00:50 Normal Saline IV 03/04/21 01:49 .BOLUS ONE Departure - Departure Time of Disposition: 02:23 Disposition: Home, Self-Care 01 Condition: Fair Clinical Impression: Acute kidney injury superimposed on chronic kidney disease, Leukocytosis, Weakness Instructions: Weakness, [id number], Acute Kidney Injury, Adult Referrals: Mejia Brooks MD [Primary Care Provider] - Forms: ED Department Discharge Additional Instructions: Concern for urinary tract infection. Patient was unable to urinate in the emergency department but felt better after some IV fluids requested to be sent back to the alf to go to sleep. I sent orders with her to collect urine for urinalysis with reflex to culture if indicated and for a basic metabolic panel in the morning to trend renal function. Please follow-up urinalysis and trend renal function for appropriate continuing care. Mild concern for mild exacerbation of just of heart failure. Patient's BNP is elevated above her normal level which is elevated at baseline. She did have crackles on auscultation. Review of her EKG shows no significant change from her prior EKG but there is some concern for inferior lateral ischemia. Sepsis Event Note (ED) - Evaluation Sepsis Screening Result: No Definite Risk - Focused Exam Vital Signs: Vital Signs Temp Pulse Resp BP Pulse Ox 03/03/21 23:50 36.6 C 104 H 20 100/46 L 95
[2021-03-04] MEDS: Sodium Chloride 0.9% 500 ML IV ONE (01:30)
--- NOTE | 2021-03-04 02:32 | PCM.EKG ---
#1 Interpretation EKG Date: 03/03/21 Time: 23:56 EKG Interpretation Comments: Narrow complex atrial tachycardia, rate 102, likely normal axis, poor R wave progression is again seen, inverted T waves in V4, V5, V6, aVL, lead I, nonspecific ST-T segment abnormality inferior leads, concern for lateral ischem ia. No significant morphological change when compared to EKG performed 01/22/2018.
[2021-03-04 03:40] VITALS: PULSE 100
[2021-03-04 03:41] VITALS: BP 138/70
== END 2021-03-04 02:43 | disposition home or self-care (01) ==
LOC: FB.ED 23:45
DX: D72.829 Elevated white blood cell count, unspecified (principal); I12.9 Hypertensive chronic kidney disease with stage 1 through stage 4 chronic kidney disease, or unspecified chronic kidney disease; E11.22 Type 2 diabetes mellitus with diabetic chronic kidney disease; N18.9 Chronic kidney disease, unspecified; N17.9 Acute kidney failure, unspecified; I48.91 Unspecified atrial fibrillation; E78.00 Pure hypercholesterolemia, unspecified; I10 Essential (primary) hypertension; I25.2 Old myocardial infarction; E11.40 Type 2 diabetes mellitus with diabetic neuropathy, unspecified; Z88.5 Allergy status to narcotic agent; Z79.4 Long term (current) use of insulin; Z79.82 Long term (current) use of aspirin; Z79.899 Other long term (current) drug therapy
CPT/HCPCS: 36415; 80053; 81001; 83880; 84484; 85025; 85610; 87086; 87088; 93005; 99285; J7040